=== PATIENT | female | born 1940 | race Caucasian/White ===

== ENCOUNTER → 2017-02-19 | Outpatient (CLI) | payer MEDICARE, OTHER ==
--- NOTE | 2017-02-20 16:20 | WOMENS IMAGING REPORT ---
EXAM DESCRIPTION: 3D SCREENING MAMMO BILAT COMPLETED DATE/TIME: 02/19/2017 1:35 pm REASON FOR STUDY: ROUTINE SCREENING; Z12.31 COMPARISON: Multiple since 2008 TECHNIQUE: Standard craniocaudal and mediolateral oblique views of each breast recorded using digita l acquisition and breast tomosynthesis. LIMITATIONS: None. FINDINGS: Findings present which are benign by mammographic criteria. No suspicious masses, calcifi cations or architectural distortion. Pertinent benign findings: Benign bilateral breast parenchymal arterial vascular calcifications Read with the assistance of CAD. .[facility] - R2 Cenova Version 1.3 .[facility] - R2 Cenova Version 1.3 .[facility] - R2 Cenova Version 2.4 .[facility] [place] - R2 Cenova Version 2.4 .[facility] - R2 Optical Scientist Version 9.2 Benign mammographic findings may include one or more of the following: Smooth masses, popcorn/rim/co arse calcifications, asymmetries, post-procedure changes, and lesions with long-standing stability. IMPRESSION: BENIGN MAMMOGRAPHIC FINDINGS. BIRADS 2 BREAST DENSITY: b. There are scattered areas of fibroglandular density. BIRAD: 2 BENIGN FINDING(S) RECOMMENDATION: RECOMMENDATION: ROUTINE SCREENING COMMENT: The patient has been notified of the results by letter per SA requirements. Additional no tification policies are in place for contacting patient with suspicious or incomplete findings. Quality ID #[id number]: The [employer] recommends an annual screening mammogram for women aged 40 years or over. This facility utilizes a reminder system to ensure that all patients receive reminder letters, and/or direct phone calls for appointments. This includes reminders for routine scr eening mammograms, diagnostic mammograms, or other Breast Imaging Interventions when appropriate. Th is patient will be placed in the appropriate reminder system. The [employer] (ACR) has developed recommendations for screening MRI of the breast s in certain patient populations, to be used in conjunction with mammography. Breast MRI surveillanc e may be appropriate for women with more than 20% lifetime risk of developing breast cancer as deter mined by genetic testing, significant family history of the disease, or history of mantle radiation f or Hodgkins Disease. ACR Practice Guidelines 2008. DBT Technology DBT is a type of tomographic mammography. With conventional mammography, overlapping breast tissue ma y make lesions difficult to detect, even with good compression. DBT uses an x-ray tube that rotates a round the breast, taking images at different angles. These images are then combined to create thin sl ices of the breast that the radiologist can view as a 3D reconstruction. The Hologic unit can perform full-field digital mammograms (2D imaging); or DBT (3D imaging); or both, in a combination mode that quickly performs both the mammogram and the tomosynthesis scan while the breast is still compressed. PQRS 6045F: Fluoroscopic imaging is not utilized for breast tomosynthesis. TECHNICAL DOCUMENTATION: FINDING NUMBER: (1) ASSESSMENT: (1) JOB ID: [id number] [employer]- All Rights Reserved
== END ==
LOC: WI 13:12
PROVIDERS: ATTEND Internal Medicine Medical Oncology
DX: Z12.31 Encounter for screening mammogram for malignant neoplasm of breast (principal)
CPT/HCPCS: 77063; G0202; 77067

== ENCOUNTER → 2017-09-27 | Outpatient (CLI) | payer MEDICARE, OTHER ==
[2017-09-27 10:02] VITALS: BP 158/70
[2017-09-27 11:07] LABS: HEMATOCRIT 38.7 % (36.0-47.0); MEAN CORPUSCULAR HEMOGLOBIN 30.2 pg (27.0-33.4); MEAN CORPUSCULAR HGB CONC 33.5 g/dL (32.0-36.0); MEAN CORPUSCULAR VOLUME 90 fl (80-97); PLATELET COUNT 133 10^3/uL (150-450); RED CELL DISTRIBUTION WIDTH 15.4 % (11.5-14.0); WHITE BLOOD COUNT 4.2 10^3/uL (4.0-10.5)
[2017-09-27 11:16] LABS: INTERNATIONAL RATION (INR) 0.91; PROTHROMBIN TIME 12.7 SEC (11.4-15.4)
[2017-09-27 11:17] LABS: PARTIAL THROMBOPLASTIN TIME 29.2 SEC (23.5-35.8)
--- NOTE | 2017-09-27 23:03 | EKG REPORT ---
SEVERITY:- ABNORMAL ECG - SINUS RHYTHM LVH WITH SECONDARY REPOLARIZATION ABNORMALITY : Confirmed by: Joe Jacob 27-Sep-2017 23:03:02
== END ==
LOC: OD 10:40 → EDSTATUS 10-16 08:00
PROVIDERS: ATTEND Plastic Surgery
DX: Z01.810 Encounter for preprocedural cardiovascular examination (principal); Z01.812 Encounter for preprocedural laboratory examination; Z01.818 Encounter for other preprocedural examination; Z79.01 Long term (current) use of anticoagulants; Z79.899 Other long term (current) drug therapy
CPT/HCPCS: 36415; 85027; 85610; 85730; 93005; 93010

== ENCOUNTER 2017-10-14 09:01 | Emergency (ER) | payer MEDICARE, OTHER ==
[2017-10-14 09:09] VITALS: BP 174/75
[2017-10-14] MEDS ORDERED: OXYCODONE-ACETAMINOPHEN 5-325 MG TABLET PO ONE (09:50)
--- NOTE | 2017-10-14 09:50 | ER Document Report ---
ED General - General Mode of Arrival: Ambulatory Information source: Patient TRAVEL OUTSIDE OF THE [place] IN LAST 30 DAYS: No <CHERY FOURNIER - Last Filed: 10/14/17 11:15> <MINDA DAO - Last Filed: 10/14/17 12:35> - General Chief Complaint: Leg Pain Stated Complaint: RIGHT ANKLE/ KNEE PAIN Time Seen by Provider: 10/14/17 09:31 Notes: Patient is a 77 year old female with arthritis and a history of gout presents to the emergency department complaining of multiple symptoms including right neck pain, right knee pain, left wrist pain and bilateral lower extremity swelling. Patient states 2-3 days ago she began to have right sided neck pain then left wrist pain then right knee pain. She further states she has chronic swelling in her lower extremities but it has worsened the last few days. She states her pain is similar to her previous episodes of gout. She states her pain is exacerbated with movement and walking. She reports taking colchicine although she has recently discontinued it due to having an upcoming surgery. Patient denies trouble breathing, chest pain, recent falls or injury. (CHERY FOURNIER) - Related Data Allergies/Adverse Reactions: No Known Allergies Allergy (Verified 10/14/17 09:03) Past Medical History - General Information source: Patient - Social History Smoking Status: Never Smoker Chew tobacco use (# tins/day): No Frequency of alcohol use: None Drug Abuse: None Family History: Reviewed & Not Pertinent Patient has suicidal ideation: No Patient has homicidal ideation: No Musculoskeletal Medical History: Reports Hx Arthritis <CHERY FOURNIER - Last Filed: 10/14/17 11:15> Review of Systems - Review of Systems Constitutional: No symptoms reported EENT: No symptoms reported Cardiovascular: No symptoms reported Respiratory: No symptoms reported Gastrointestinal: No symptoms reported Genitourinary: No symptoms reported Female Genitourinary: No symptoms reported Musculoskeletal: See HPI Skin: See HPI Hematologic/Lymphatic: No symptoms reported Neurological/Psychological: No symptoms reported -: Yes All other systems reviewed and negative <CHERY FOURNIER - Last Filed: 10/14/17 11:15> Physical Exam <CHERY FOURNIER - Last Filed: 10/14/17 11:15> <MINDA DAO - Last Filed: 10/14/17 12:35> - Vital signs Vitals: Temp Pulse Resp BP Pulse Ox 98.9 F 90 16 174/75 H 98 10/14/17 09:07 10/14/17 09:07 10/14/17 09:07 10/14/17 09:07 10/14/17 09:07 - Notes Notes: GENERAL: Alert, interacts well. No acute distress. HEAD: Normocephalic, atraumatic. EYES: Pupils equal, round, and reactive to light. Extraocular movements intact. ENT: Oral mucosa moist, tongue midline. NECK: Full range of motion. Supple. Trachea midline. LUNGS: No respiratory distress. EXTREMITIES: Moves all 4 extremities spontaneously. 2+ pitting edema in the BLE to the level of the knees. BLE warm to touch,R>L. Right knee hot to touch, left wrist hot to touch. Tender to palpation to the lateral aspect of right lower extremity. Pain with extension and flexion of right knee. Negative anterior and posterior drawer test of right knee. No effusion or no crepitus of right knee. Right knee PROM to approximately 80 with extension. NEUROLOGICAL: Alert and oriented x3. Normal speech. PSYCH: Normal affect, normal mood. SKIN: Warm, dry, normal turgor. (CHERY FOURNIER) Course <CHERY FOURNIER - Last Filed: 10/14/17 11:15> <MINDA DAO - Last Filed: 10/14/17 12:35> - Re-evaluation Re-evalutation: 10/14/17 09:55 I did a thorough discussion with this patient regarding desired workup and treatment at this time. Given the increased pain and swelling in her right leg I did discuss doing an ultrasound of the right leg to look for DVT. Patient states she does not want an ultrasound at this time as they have looked for a blood clot twice in the past and not found one. Discussed with the patient that since the swelling is worse those 2 prior ultrasounds cannot completely rule out a DVT at this time. Patient is aware of this and agrees to return should the swelling worsen. I also discussed that the swelling in her legs is not likely explained by gout. Patient also agrees to return should she develop any chest pain or shortness of breath. At present patient only wishes to treat what appears to be a gouty flare causing the pain in her left wrist and her right knee. There is no sign of septic joint at this time as I can range her knee through most of her range of motion up to 80 passive range of motion and there is no effusion of the knee. (MINDA DAO) - Vital Signs Vital signs: Temp Pulse Resp BP Pulse Ox 98.9 F 90 16 174/75 H 98 10/14/17 09:07 10/14/17 09:07 10/14/17 09:07 10/14/17 09:07 10/14/17 09:07 Procedures - Immobilization left wrist Pre-Proc Neuro Vasc Exam: Normal Immobilizer type: Cock-up Performed by: PCT Post-Proc Neuro Vasc Exam: Normal, Unchanged from pre-exam Alignment checked and good: Yes Right Knee Pre-Proc Neuro Vasc Exam: Normal Immobilizer type: Dk wrap Performed by: PCT Post-Proc Neuro Vasc Exam: Normal, Unchanged from pre-exam Alignment checked and good: Yes <MINDA DAO - Last Filed: 10/14/17 12:35> Discharge <CHERY FOURNIER - Last Filed: 10/14/17 11:15> <MINDA DAO - Last Filed: 10/14/17 12:35> - Discharge Clinical Impression: Right wrist pain Right knee pain Qualifiers: Chronicity: acute Qualified Code(s): M25.561 - Pain in right knee Gout flare Qualifiers: Gout site: multiple sites Gout etiology: unspecified cause Qualified Code(s): M10.9 - Gout, unspecified Condition: Stable Disposition: HOME, SELF-CARE Additional Instructions: You appear to be having a flare of your gout. This is likely because you recently stopped taking your colchicine in preparation for upcoming surgery. Please restart your colchicine. Your first dose may be 2 tablets instead of 1. Please keep your leg elevated and rest your wrist. If your swelling worsens, you develop shortness of breath, you develop chest pain, you develop fever or your pain is not controlled with colchicine and the Percocet please return to the emergency department. Prescriptions: Oxycodone HCl/Acetaminophen [Percocet 5-325 mg Tablet] 1 - 2 tab PO Q4H PRN #15 tablet PRN Reason: Referrals: PRABHU OLIVO MD [ACTIVE STAFF] - Follow up as needed Scribe Attestation: 10/14/17 12:35 I personally performed the services described in the documentation, reviewed and edited the documentation which was dictated to the scribe in my presence, and it accurately records my words and actions. (MINDA DAO) Scribe Documentation - Scribe Written by Scribe:: Meghan Rivera, 10/14/2017 10:39 acting as scribe for :: Garth <CHERY FOURNIER - Last Filed: 10/14/17 11:15>
== END 2017-10-14 10:00 | disposition home or self-care (01) ==
LOC: ER 09:01
DX: M10.9 Gout, unspecified (principal); M54.2 Cervicalgia; R60.0 Localized edema
CPT/HCPCS: 99283; L3908; A9270

== ENCOUNTER 2018-01-19 18:32 | Inpatient (IN) | payer MEDICARE, OTHER ==
--- NOTE | 2018-01-19 18:43 | ER Document Report ---
ED General - General Stated Complaint: FALL/HIP PAIN Time Seen by Provider: 01/19/18 18:42 Notes: Patient is a 77-year-old female that presents to the emergency department for chief complaint of left hip pain after fall. Patient reports that just prior to ED arrival, the patient had tripped over her cane and fell onto her left side , has not been able to stand since then. EMS was called and she was brought to the emergency department. She currently states she has no pain, but did at the time that she fell. She states as long as she is lying still, not moving her left leg, she does not having any pain. She rates the pain when she does move her leg as a 4 out of 10, describes as an aching and throbbing sensation. Denies any numbness, tingling or weakness. Denies any pain anywhere else. She did not hit her head from the fall. Denies any headache, lightheadedness, chest pain, shortness of breath, nausea, vomiting. Past Medical History: Diabetes mellitus, hypertension, hyperlipidemia Past Surgical History: Cholecystectomy Social History: Denies tobacco, alcohol or illicit drug use. Family History: Reviewed and noncontributory for presenting illness Allergies: Reviewed, see documented allergy list. REVIEW OF SYSTEMS: Other than noted above, the 12 point review of systems was reviewed with the patient and were negative, all pertinent findings are included in the HPI. PHYSICAL EXAMINATION: Vital signs reviewed, nursing noted reviewed. GENERAL: Elderly female, no acute distress HEAD: Atraumatic, normocephalic. EYES: Eyes appear normal, extraocular movements intact, sclera anicteric, conjunctiva are normal. ENT: nares patent, oropharynx clear without exudates. Moist mucous membranes. NECK: Normal range of motion, supple without lymphadenopathy LUNGS: Breath sounds clear to auscultation bilaterally and equal. No wheezes rales or rhonchi. HEART: Regular rate and rhythm without murmurs ABDOMEN: Soft, nontender, normoactive bowel sounds. No rebound, guarding, or rigidity. No masses appreciated. EXTREMITIES: The left lower extremity is shortened compared to the right, she does have pain with logrolling, and with passive hip flexion, patient is unable to flex her hip on her own. There is also tenderness with palpation over the greater trochanter of the left hip. The rest the patient's extremity exam is grossly unremarkable. She is neurovascularly intact distally in all extremities. NEUROLOGICAL: No focal neurological deficits. Moves all extremities spontaneously Motor and sensory grossly intact on exam. PSYCH: Normal mood, normal affect. SKIN: Warm, Dry, normal turgor, no rashes or lesions noted on exposed skin TRAVEL OUTSIDE OF THE [place] IN LAST 30 DAYS: No - Related Data Allergies/Adverse Reactions: Mdgiukx-Vby-Xcr Reductase Inhibitor Adverse Reaction (Verified 01/19/18 22:02) Past Medical History - Social History Smoking Status: Never Smoker Family History: Reviewed & Not Pertinent Renal/ Medical History: Denies: Hx Peritoneal Dialysis Musculoskeletal Medical History: Reports Hx Arthritis Physical Exam - Vital signs Vitals: Temp Pulse Resp BP Pulse Ox 97.6 F 56 L 18 158/59 H 95 01/19/18 18:37 01/19/18 18:37 01/19/18 18:37 01/19/18 18:37 01/19/18 18:37 Course - Re-evaluation Re-evalutation: Patient seen and examined vital signs reviewed. Laboratory data and imaging were ordered as appropriate for the patient's presenting symptoms and complaint, with consideration of any critical or life threatening conditions that may be associated with their obtained history and exam as noted above. Patient was treated with IV fluid, patient declined any need for pain medication despite having a intertrochanteric fracture. Results were reviewed when available and demonstrated left intertrochanteric fracture, blood work was reviewed, patient appeared mildly dehydrated, therefore she was given fluids as noted above The patient was re-evaluated and was stable, no complaints Evaluation was most consistent with left intertrochanteric fracture, after fall , case discussed with Dr. Duque with orthopedics, who will follow up on the patient is a consult Results were discussed with the patient at this point after careful consideration I feel that that patient should be admitted to the hospital. This was discussed with the patient that it is in the best interest for their care to be admitted for further evaluation and management. Patient agreed with this plan of care. A call was placed to the admitted physician, Dr. Oconnell who graciously accepted the patient onto their service. *Note is created using voice recognition software and may contain spelling, syntax or grammatical errors. Laboratory 01/19/18 01/19/18 19:00 19:00 WBC 4.6 RBC 3.97 Hgb 10.1 L Hct 32.1 L MCV 81 MCH 25.4 L MCHC 31.4 L RDW 23.3 H Plt Count 171 Seg Neutrophils % 73.6 Lymphocytes % 15.9 Monocytes % 7.0 Eosinophils % 3.1 Basophils % 0.4 Absolute Neutrophils 3.4 Absolute Lymphocytes 0.7 Absolute Monocytes 0.3 Absolute Eosinophils 0.1 Absolute Basophils 0.0 Sodium 142.2 Potassium 3.9 Chloride 102 Carbon Dioxide 30 Anion Gap 10 BUN 29 H Creatinine 1.22 Est GFR ( Amer) 52 L Est GFR (Non-Af Amer) 43 L Glucose 161 H Calcium 10.4 H Total Bilirubin 1.0 Direct Bilirubin 0.7 H Neonat Total Bilirubin Not Reportable Neonat Direct Bilirubin Not Reportable Neonat Indirect Bili Not Reportable AST 114 H ALT 42 Alkaline Phosphatase 337 H Total Protein 6.6 Albumin 3.5 Hip X-Ray 01/19/18 18:41 IMPRESSION: Comminuted intertrochanteric fracture of the left hip with subtrochanteric extension. - Vital Signs Vital signs: Temp Pulse Resp BP Pulse Ox 97.6 F 56 L 18 158/59 H 95 01/19/18 18:37 01/19/18 18:37 01/19/18 18:37 01/19/18 18:37 01/19/18 18:37 - Laboratory Result Diagrams: 01/19/18 19:00 01/19/18 19:00 Laboratory results interpreted by me: 01/19/18 01/19/18 19:00 19:00 Hgb 10.1 L Hct 32.1 L MCH 25.4 L MCHC 31.4 L RDW 23.3 H BUN 29 H Est GFR ( Amer) 52 L Est GFR (Non-Af Amer) 43 L Glucose 161 H Calcium 10.4 H Direct Bilirubin 0.7 H AST 114 H Alkaline Phosphatase 337 H - EKG Interpretation by Me Additional EKG results interpreted by me: EKG demonstrates sinus bradycardia with a ventricular rate of 55 bpm, left axis deviation, QTC 475 ms, no evidence of acute ischemia, this is compared with prior EKG from 09/27/2017, without significant change. Discharge - Discharge Clinical Impression: Prerenal azotemia Intertrochanteric fracture of left hip Qualifiers: Encounter type: initial encounter Fracture type: closed Fracture alignment: displaced Qualified Code(s): S72.142A - Displaced intertrochanteric fracture of left femur, initial encounter for closed fracture Fall Qualifiers: Encounter type: initial encounter Qualified Code(s): W19.XXXA - Unspecified fall, initial encounter Anemia Qualifiers: Anemia type: unspecified type Qualified Code(s): D64.9 - Anemia, unspecified Condition: Stable Disposition: ADMITTED INPATIENT Admitting Provider: Hospitalist - Dr. Oconnell Unit Admitted: Telemetry
[2018-01-19 19:23] LABS: ABSOLUTE EOSINOPHILS # (AUTO) 0.1 10^3/uL (0.0-0.6); ABSOLUTE LYMPHOCYTES (AUTO) 0.7 10^3/uL (0.5-4.7); ABSOLUTE MONOCYTES (AUTO) 0.3 10^3/uL (0.1-1.4); ABSOLUTE NEUT (AUTO) 3.4 10^3/uL (1.7-8.2); BASOPHILS % (AUTO) 0.4 % (0-2); EOSINOPHILS % (AUTO) 3.1 % (0-6); HEMATOCRIT 32.1 % (36.0-47.0); HEMOGLOBIN 10.1 g/dL (12.0-15.5); LYMPHOCYTES % (AUTO) 15.9 % (13-45); MEAN CORPUSCULAR HEMOGLOBIN 25.4 pg (27.0-33.4); MEAN CORPUSCULAR HGB CONC 31.4 g/dL (32.0-36.0); MEAN CORPUSCULAR VOLUME 81 fl (80-97); PLATELET COUNT 171 10^3/uL (150-450); RED BLOOD COUNT 3.97 10^6/uL (3.72-5.28); RED CELL DISTRIBUTION WIDTH 23.3 % (11.5-14.0); SEGMENTED NEUTROPHILS % (AUTO) 73.6 % (42-78); TOTAL CELLS COUNTED % (AUTO) 100 %; WHITE BLOOD COUNT 4.6 10^3/uL (4.0-10.5)
[2018-01-19 20:02] LABS: ALANINE AMINOTRANSFERASE 42 U/L (9-52); ALBUMIN 3.5 g/dL (3.5-5.0); ALKALINE PHOSPHATASE 337 U/L (38-126); ANION GAP 10 (5-19); ASPARTATE AMINO TRANSFERASE 114 U/L (14-36); BLOOD UREA NITROGEN 29 mg/dL (7-20); CALCIUM 10.4 mg/dL (8.4-10.2); CARBON DIOXIDE 30 mmol/L (22-30); CHLORIDE 102 mmol/L (98-107); GLUCOSE 161 mg/dL (75-110); POTASSIUM 3.9 mmol/L (3.6-5.0); SODIUM 142.2 mmol/L (137-145)
[2018-01-19 20:03] LABS: BILIRUBIN,DIRECT 0.7 mg/dL (0.0-0.4); TOTAL PROTEIN 6.6 g/dL (6.3-8.2)
[2018-01-19] MEDS ORDERED: NORMAL SALINE 500 ML IV ONE (20:06)
--- NOTE | 2018-01-19 20:07 | RADIOLOGY REPORT (SQ) ---
EXAM DESCRIPTION: HIP LEFT AP/LATERAL COMPLETED DATE/TIME: 01/19/2018 7:16 pm REASON FOR STUDY: fall COMPARISON: None. NUMBER OF VIEWS: Two views. TECHNIQUE: AP pelvis and additional cross-table lateral view of the left hip. LIMITATIONS: None. FINDINGS: MINERALIZATION: Osteopenia. LEFT HIP: Comminuted intertrochanteric fracture of the left hip with subtrochanteric extension and co xa vera. Lesser tuberosity is slightly displaced medially. Left femoral head is well seated within its acetabulum. RIGHT HIP: No fracture or dislocation. No worrisome bone lesions. PUBIS AND ISCHIUM: Pubic symphysis is cured by overlying bowel contents. Otherwise, no acute fractur e. PELVIS: No fracture. SACRUM: No fracture or dislocation. No worrisome bone lesions. LOWER LUMBAR SPINE: No sinister bone lesions. SOFT TISSUES: No findings. OTHER: No other significant finding. IMPRESSION: Comminuted intertrochanteric fracture of the left hip with subtrochanteric extension. TECHNICAL DOCUMENTATION: JOB ID: [id number] [employer]- All Rights Reserved Reading location - IP/workstation name: [email or web address]
[2018-01-19] MEDS ORDERED: ONDANSETRON HCL INJ/PF 4 MG/2 ML SDV IV PRN (20:16)
[2018-01-19] MEDS ORDERED: IPRATROPIUM/ALBUTEROL 0.5-2.5 MG/3 ML AMPUL NEB PRN (20:16)
[2018-01-19] MEDS ORDERED: MAG HYDROX/AL HYDROX/SIMETH SUSP 30 ML UDCUP PO PRN (20:16)
[2018-01-19] MEDS ORDERED: ACETAMINOPHEN 325 MG TABLET PO PRN (20:16)
[2018-01-19] MEDS ORDERED: DEXTROSE 50%-WATER 25 GM/50 ML DISP.SYRIN IV PRN ×2 (20:16)
[2018-01-19] MEDS ORDERED: GLUCAGON,HUMAN RECOMB 1 MG INJ IM PRN (20:16)
[2018-01-19] MEDS ORDERED: DEXTROSE 40% GEL 15 GM TUBE PO PRN ×2 (20:16)
[2018-01-19] MEDS ORDERED: INSULIN LISPRO 100 UNIT/ML 3 ML VIAL SUBCUT PRN (20:16)
[2018-01-19] MEDS: MORPHINE SULFATE 10 MG/ML INJ IV PRN (21:59)
[2018-01-19] MEDS: HEPARIN SOD (PORCINE) 5,000 UNIT/ML 1 ML SYRINGE SUBCUT SCH (22:35)
[2018-01-20] MEDS: MORPHINE SULFATE 10 MG/ML INJ IV PRN ×5 (01:35→22:26)
[2018-01-20 05:55] LABS: ABSOLUTE LYMPHOCYTES (AUTO) 0.7 10^3/uL (0.5-4.7); ABSOLUTE MONOCYTES (AUTO) 0.3 10^3/uL (0.1-1.4); ABSOLUTE NEUT (AUTO) 3.3 10^3/uL (1.7-8.2); BASOPHILS % (AUTO) 0.7 % (0-2); EOSINOPHILS % (AUTO) 0.2 % (0-6); HEMOGLOBIN 9.4 g/dL (12.0-15.5); MEAN CORPUSCULAR HEMOGLOBIN 25.4 pg (27.0-33.4); MEAN CORPUSCULAR HGB CONC 31.3 g/dL (32.0-36.0); MEAN CORPUSCULAR VOLUME 81 fl (80-97); PLATELET COUNT 142 10^3/uL (150-450); RED BLOOD COUNT 3.69 10^6/uL (3.72-5.28); RED CELL DISTRIBUTION WIDTH 23.5 % (11.5-14.0); SEGMENTED NEUTROPHILS % (AUTO) 77.1 % (42-78); TOTAL CELLS COUNTED % (AUTO) 100 %; WHITE BLOOD COUNT 4.3 10^3/uL (4.0-10.5)
[2018-01-20] MEDS: HEPARIN SOD (PORCINE) 5,000 UNIT/ML 1 ML SYRINGE SUBCUT SCH (06:03)
--- NOTE | 2018-01-20 06:40 | PDOC H&P ---
History of Present Illness Admission Date/PCP: 01/19/18 20:21 MARCO DAY Patient complains of: Left hip pain History of Present Illness: SHARYN PETERS is a 77 year old female with a past medical history of paroxysmal atrial fibrillation, diabetes, hypertension, osteoarthritis and dyslipidemia. Presents after tripping over her cane landing on her left side resulting in left sided hip pain and inability to bear weight. Patient denies striking her head or other injury, chest pain, shortness of breath, nausea or vomiting. In the emergency room she is found to have a left-sided hip fracture and referred to the hospitalist for admission. Patient denies recent recent falls, change in medications and otherwise feels well. Patient is minimally ambulatory at baseline walking no further than 30-40 feet limited by arthritic pain. Past Medical History Cardiac Medical History: Reports: Atrial Fibrillation Musculoskeltal Medical History: Reports: Arthritis Past Surgical History Past Surgical History: Reports: Cholecystectomy Social History Information Source: Patient, Emergency Med Personnel Lives with: Spouse/Significant other Smoking Status: Never Smoker Frequency of Alcohol Use: None Drugs: None - Advance Directive Resuscitation Status: Full Code Family History Family History: Hypertension Parental Family History Reviewed: Yes Children Family History Reviewed: Yes Sibling(s) Family History Reviewed.: Yes Medication/Allergy Home Medications: Alendronate Sodium [Fosamax 70 mg Tablet] 70 mg PO .WEEKLY 09/27/17 Blackcherry 2 tab PO DAILY 09/27/17 Chlorthalidone [Chlorthalidone 25 mg Tablet] 1 tab PO DAILY 09/27/17 Cholecalciferol (Vitamin D3) [Vitamin D3] 1,000 unit PO DAILY 09/27/17 Colchicine [Colcrys 0.6 mg Tablet] 1 tab PO DAILY 09/27/17 Cyclosporine [Restasis] 1 each OP BID 09/27/17 Diclofenac Sodium [Voltaren] 100 gm TP BID 09/27/17 Diltiazem HCl [Cardizem LA] 420 mg PO QAM 09/27/17 Febuxostat [Uloric 80 mg Tablet] 80 mg PO QPM 09/27/17 Glipizide [Glipizide Xl] 10 mg PO BID 09/27/17 Hydrocodone/Acetaminophen [Hydrocodon-Acetaminophen 5-325] 1 each PO Q6 PRN Metoprolol Succinate 50 mg PO QAM 09/27/17 Multivitamin [Multivitamins] 1 each PO DAILY 09/27/17 Niacin 500 mg PO QPM 09/27/17 Potassium Gluconate 20 meq PO TID 09/27/17 Red Grape Seed 2 tab PO DAILY 09/27/17 Sitagliptin Phosphate [Januvia 50 mg Tablet] 100 mg PO DAILY 09/27/17 Tosemide 100 mg PO QAM 09/27/17 Vitamin B Complex [B Complex] 1 each PO DAILY 09/27/17 Oxycodone HCl/Acetaminophen [Percocet 5-325 mg Tablet] 1 - 2 tab PO Q4H PRN #15 tablet 10/14/17 Alprazolam [Xanax 0.5 mg Tablet] 0.5 mg PO DAILY 01/19/18 Colchicine [Colchicine 0.6 mg Tablet] 0.6 mg PO DAILY 01/19/18 Allergies/Adverse Reactions: Yiytizh-Oyp-Xui Reductase Inhibitor Adverse Reaction (Verified 01/19/18 22:02) Review of Systems Constitutional: ABSENT: chills, fever(s), headache(s), weight gain, weight loss Eyes: ABSENT: visual disturbances Ears: ABSENT: hearing changes Cardiovascular: ABSENT: chest pain, dyspnea on exertion, edema, orthropnea, palpitations Respiratory: ABSENT: cough, hemoptysis Gastrointestinal: ABSENT: abdominal pain, constipation, diarrhea, hematemesis, hematochezia, nausea, vomiting Genitourinary: ABSENT: dysuria, hematuria Musculoskeletal: ABSENT: joint swelling Integumentary: ABSENT: rash, wounds Neurological: ABSENT: abnormal gait, abnormal speech, confusion, dizziness, focal weakness, syncope Psychiatric: ABSENT: anxiety, depression, homidical ideation, suicidal ideation Endocrine: ABSENT: cold intolerance, heat intolerance, polydipsia, polyuria Hematologic/Lymphatic: ABSENT: easy bleeding, easy bruising Physical Exam Vital Signs: Temp Pulse Resp BP Pulse Ox 97.9 F 63 18 154/63 H 96 01/20/18 05:29 01/20/18 05:29 01/20/18 05:29 01/20/18 05:29 01/20/18 05:29 Intake & Output 01/18/18 01/19/18 01/20/18 11:59 11:59 11:59 Intake Total 500 Balance 500 Weight 95.3 kg General appearance: PRESENT: cooperative, mild distress, obese, well-developed, well-nourished Head exam: PRESENT: atraumatic, normocephalic Eye exam: PRESENT: conjunctiva pink, EOMI, PERRLA. ABSENT: scleral icterus Ear exam: PRESENT: normal external ear exam Mouth exam: PRESENT: moist, tongue midline Neck exam: ABSENT: carotid bruit, JVD, lymphadenopathy, thyromegaly Respiratory exam: PRESENT: clear to auscultation minerva. ABSENT: rales, rhonchi, wheezes Cardiovascular exam: PRESENT: RRR. ABSENT: diastolic murmur, rubs, systolic murmur Pulses: PRESENT: normal dorsalis pedis pul Vascular exam: PRESENT: normal capillary refill GI/Abdominal exam: PRESENT: normal bowel sounds, soft. ABSENT: distended, guarding, mass, organolmegaly, rebound, tenderness Rectal exam: PRESENT: deferred Extremities exam: PRESENT: full ROM, tenderness, +1 edema - Mild chronic venous stasis changes, other - Left lower extremity shortened and externally rotated. ABSENT: calf tenderness, clubbing, pedal edema Neurological exam: PRESENT: alert, awake, oriented to person, oriented to place , oriented to time, oriented to situation, CN II-XII grossly intact. ABSENT: motor sensory deficit Psychiatric exam: PRESENT: appropriate affect, normal mood. ABSENT: homicidal ideation, suicidal ideation Skin exam: PRESENT: dry, intact, warm. ABSENT: cyanosis, rash Results Laboratory Results: 01/20/18 05:09 01/20/18 05:09 WBC 4.3 RBC 3.69 L Hgb 9.4 L Hct 30.0 L MCV 81 MCH 25.4 L MCHC 31.3 L RDW 23.5 H Plt Count 142 L Seg Neutrophils % 77.1 Lymphocytes % 15.0 Monocytes % 7.0 Eosinophils % 0.2 Basophils % 0.7 Absolute Neutrophils 3.3 Absolute Lymphocytes 0.7 Absolute Monocytes 0.3 Absolute Eosinophils 0.0 Absolute Basophils 0.0 Impressions: Hip X-Ray 01/19/18 18:41 IMPRESSION: Comminuted intertrochanteric fracture of the left hip with subtrochanteric extension. Assessment & Plan - Diagnosis (1) Intertrochanteric fracture of left hip Qualifiers: Encounter type: initial encounter Fracture type: closed Fracture alignment: displaced Qualified Code(s): S72.142A - Displaced intertrochanteric fracture of left femur, initial encounter for closed fracture Is this a current diagnosis for this admission?: Yes Plan: No immediately reversible risk factors preventing orthopedic surgery. Symptomatic management, orthopedic surgery consulted (2) Paroxysmal atrial fibrillation Is this a current diagnosis for this admission?: Yes Plan: Continue outpatient regiment of diltiazem and Coreg (3) Anemia Qualifiers: Anemia type: unspecified type Qualified Code(s): D64.9 - Anemia, unspecified Is this a current diagnosis for this admission?: Yes Plan: Microcytic, likely iron deficient, follow-up labs (4) Prerenal azotemia Is this a current diagnosis for this admission?: Yes Plan: Mild iatrogenic dehydration, Lasix held, gentle IV fluid resuscitation, follow- up chemistry - Time Time Spent: 30 to 50 Minutes - Inpatient Certification Medical Necessity: Need Close Monitoring Due to Risk of Patient Decompensation
[2018-01-20] MEDS ORDERED: NORMAL SALINE 1000 ML 1,000 ML IV PRN (06:41)
[2018-01-20] MEDS ORDERED: CEFAZOLIN 2 GM/D5W RTU 2 GM/50 ML RTUPB IV PRN (06:42)
[2018-01-20] MEDS ORDERED: TRANEXAMIC ACID 1,000 MG in DEXTROSE 5%-WATER 50 ML IV PRN (06:43)
--- NOTE | 2018-01-20 06:55 | PDOC CONSULTATION ---
Consultation Consult Date: 01/20/18 Consult reason:: Left hip fracture History of Present Illness Admission Date/PCP: 01/19/18 20:21 MARCO DAY History of Present Illness: SHARYN PETERS is a 77 year old female The patient is a 77-year-old white female household ambulator who tripped and fell and sustained a left hip injury. She was evaluated in the emergency room where a left intertrochanteric femur fracture was identified. She is admitted to the hospital service and orthopedics is consulted for fracture management. Past Medical History Cardiac Medical History: Reports: Atrial Fibrillation Musculoskeltal Medical History: Reports: Arthritis Past Surgical History Past Surgical History: Reports: Cholecystectomy Social History Information Source: Patient, [facility] Records Lives with: Spouse/Significant other Smoking Status: Never Smoker Frequency of Alcohol Use: None Drugs: None - Advance Directive Resuscitation Status: Full Code Family History Family History: Reviewed & Not Pertinent, Hypertension Parental Family History Reviewed: No Children Family History Reviewed: No Sibling(s) Family History Reviewed.: No Medication/Allergy Home Medications: Alendronate Sodium [Fosamax 70 mg Tablet] 70 mg PO .WEEKLY 09/27/17 Blackcherry 2 tab PO DAILY 09/27/17 Chlorthalidone [Chlorthalidone 25 mg Tablet] 1 tab PO DAILY 09/27/17 Cholecalciferol (Vitamin D3) [Vitamin D3] 1,000 unit PO DAILY 09/27/17 Colchicine [Colcrys 0.6 mg Tablet] 1 tab PO DAILY 09/27/17 Cyclosporine [Restasis] 1 each OP BID 09/27/17 Diclofenac Sodium [Voltaren] 100 gm TP BID 09/27/17 Diltiazem HCl [Cardizem LA] 420 mg PO QAM 09/27/17 Febuxostat [Uloric 80 mg Tablet] 80 mg PO QPM 09/27/17 Glipizide [Glipizide Xl] 10 mg PO BID 09/27/17 Hydrocodone/Acetaminophen [Hydrocodon-Acetaminophen 5-325] 1 each PO Q6 PRN Metoprolol Succinate 50 mg PO QAM 09/27/17 Multivitamin [Multivitamins] 1 each PO DAILY 09/27/17 Niacin 500 mg PO QPM 09/27/17 Potassium Gluconate 20 meq PO TID 09/27/17 Red Grape Seed 2 tab PO DAILY 09/27/17 Sitagliptin Phosphate [Januvia 50 mg Tablet] 100 mg PO DAILY 09/27/17 Tosemide 100 mg PO QAM 09/27/17 Vitamin B Complex [B Complex] 1 each PO DAILY 09/27/17 Oxycodone HCl/Acetaminophen [Percocet 5-325 mg Tablet] 1 - 2 tab PO Q4H PRN #15 tablet 10/14/17 Alprazolam [Xanax 0.5 mg Tablet] 0.5 mg PO DAILY 01/19/18 Colchicine [Colchicine 0.6 mg Tablet] 0.6 mg PO DAILY 01/19/18 Allergies/Adverse Reactions: [id number]-[id number]-Uqd Reductase Inhibitor Adverse Reaction (Verified 01/19/18 22:02) Review of Systems All systems: as per PMH Physical Exam Vital Signs: Temp Pulse Resp BP Pulse Ox 36.6 C 63 18 154/63 H 96 01/20/18 05:29 01/20/18 05:29 01/20/18 05:29 01/20/18 05:29 01/20/18 05:29 Intake & Output 01/18/18 01/19/18 01/20/18 06:59 06:59 06:59 Intake Total 500 Output Total 1350 Balance -850 Weight 95.3 kg Physical Exam: Overweight if not obese middle-aged white female lying in hospital bed. Accompanied by her in the chair next to her. She is alert oriented conversant and appropriate. General appearance: PRESENT: no acute distress, obese Head exam: PRESENT: normocephalic Respiratory exam: PRESENT: unlabored Cardiovascular exam: PRESENT: RRR Pulses: PRESENT: +1 pedal pulses bilateral Vascular exam: PRESENT: normal capillary refill GI/Abdominal exam: PRESENT: soft Rectal exam: PRESENT: deferred Extremities exam: PRESENT: other - Left lower extremity shortened and externally rotated. Distal neurovascular examination is intact. Neurological exam: PRESENT: alert, awake, oriented to person, oriented to place , oriented to time, oriented to situation. ABSENT: motor sensory deficit Psychiatric exam: PRESENT: appropriate affect, normal mood. ABSENT: homicidal ideation, suicidal ideation Skin exam: PRESENT: dry, intact, warm. ABSENT: cyanosis, rash Results Laboratory Results: 01/20/18 05:09 01/20/18 05:09 01/20/18 01/20/18 05:09 05:09 WBC 4.3 RBC 3.69 L Hgb 9.4 L Hct 30.0 L MCV 81 MCH 25.4 L MCHC 31.3 L RDW 23.5 H Plt Count 142 L Seg Neutrophils % 77.1 Lymphocytes % 15.0 Monocytes % 7.0 Eosinophils % 0.2 Basophils % 0.7 Absolute Neutrophils 3.3 Absolute Lymphocytes 0.7 Absolute Monocytes 0.3 Absolute Eosinophils 0.0 Absolute Basophils 0.0 Sodium Cancelled Potassium Cancelled Chloride Cancelled Carbon Dioxide Cancelled Anion Gap Cancelled BUN Cancelled Creatinine Cancelled Est GFR ( Amer) Cancelled Est GFR (Non-Af Amer) Cancelled Glucose Cancelled Calcium Cancelled Impressions: Hip X-Ray 01/19/18 18:41 IMPRESSION: Comminuted intertrochanteric fracture of the left hip with subtrochanteric extension. Status: Imported from PACS Assessment & Plan - Diagnosis (1) Intertrochanteric fracture of left hip Qualifiers: Encounter type: initial encounter Fracture type: closed Fracture alignment: displaced Qualified Code(s): S72.142A - Displaced intertrochanteric fracture of left femur, initial encounter for closed fracture Is this a current diagnosis for this admission?: Yes Plan: 77-year-old household ambulator with a left intratrochanteric femur fracture. Tentative plan will be for an open reduction internal fixation under choice anesthesia tomorrow. - Time Time Spent: 50 to 70 Minutes Anticipated discharge: Home with Homehealth Within: Other
[2018-01-20 06:57] LABS: ABSOLUTE RETICS # 0.136 10^6/uL (0.028-0.122); RETICULOCYTE COUNT (AUTO) 3.68 % (0.66-2.85)
[2018-01-20 07:27] LABS: ANION GAP 10 (5-19); BLOOD UREA NITROGEN 24 mg/dL (7-20); CALCIUM 10.2 mg/dL (8.4-10.2); CARBON DIOXIDE 32 mmol/L (22-30); CHLORIDE 103 mmol/L (98-107); GLUCOSE 144 mg/dL (75-110); IRON(TIBC) 51.7 ug/dL (37-170); POTASSIUM 3.4 mmol/L (3.6-5.0); SODIUM 145.1 mmol/L (137-145)
[2018-01-20] MEDS ORDERED: ALPRAZOLAM 0.5 MG TABLET PO SCH (08:00)
[2018-01-20] MEDS ORDERED: DILTIAZEM HCL 240 MG CAPSULE.CR PO SCH (08:00)
[2018-01-20 08:42] LABS: FOLATE > 20.00 ng/mL (>2.76)
[2018-01-20] MEDS: METOPROLOL SUCCINATE 25 MG TAB.SR.24H PO SCH (08:48)
[2018-01-20] MEDS: DOCUSATE SODIUM 100 MG CAPSULE PO SCH ×2 (09:10→17:50)
--- NOTE | 2018-01-20 09:59 | EKG REPORT ---
SEVERITY:- BORDERLINE ECG - SINUS RHYTHM BORDERLINE T ABNORMALITIES, ANT-LAT LEADS : Confirmed by: Garland Shabazz MD 20-Jan-2018 09:58:21
[2018-01-20] MEDS ORDERED: HYDRALAZINE HCL INJ/PF 20 MG/1 ML SDV IV PRN (11:05)
--- NOTE | 2018-01-20 11:13 | PDOC PROGRESS REPORT ---
Subjective Progress Note for:: 01/20/18 Subjective:: The patient is a 77 year old female with a PMH of PAF, DM, HTN, HLD, anemia, and lymphoma who was admitted on 01/19/18 for left intertrichanteric hip fracture from a mechanical fall at home. The patient was seen on morning rounds with multiple family members present. She is found resting in bed comfortable on room air. She reports mild discomfort to her left hip, but otherwise has no complaints at this time. She reports that she uses a quad walker and tripped over one of the prongs while ambulating at home. She denies fever, chills, headache, dizziness, chest pain, palpitations, dyspnea , orthopnea, abdominal pain, nausea and vomiting. They have no questions or concerns at this time. Nursing requests to access patient's port as they have not been able to obtain PIV access. Reason For Visit: HIP FRACTURE, HTN, DIABETES Physical Exam Vital Signs: Temp Pulse Resp BP Pulse Ox 97.7 F 59 L 14 166/67 H 98 01/20/18 07:15 01/20/18 09:35 01/20/18 09:35 01/20/18 07:15 01/20/18 09:35 Intake & Output 01/19/18 01/20/18 01/21/18 06:59 06:59 06:59 Intake Total 500 118 Output Total 1350 Balance -850 118 Weight 95.3 kg General appearance: PRESENT: no acute distress, cooperative, obese, well- developed, well-nourished Head exam: PRESENT: atraumatic, normocephalic Eye exam: PRESENT: conjunctiva pink, EOMI, PERRLA. ABSENT: scleral icterus Ear exam: PRESENT: normal external ear exam Mouth exam: PRESENT: moist, tongue midline Neck exam: ABSENT: carotid bruit, JVD, lymphadenopathy, thyromegaly Respiratory exam: PRESENT: clear to auscultation minerva, symmetrical, unlabored. ABSENT: rales, rhonchi, wheezes Cardiovascular exam: PRESENT: RRR, +S1, +S2. ABSENT: diastolic murmur, rubs, systolic murmur Pulses: PRESENT: normal dorsalis pedis pul Vascular exam: PRESENT: normal capillary refill GI/Abdominal exam: PRESENT: normal bowel sounds, soft. ABSENT: distended, guarding, mass, organolmegaly, rebound, tenderness Rectal exam: PRESENT: deferred Extremities exam: PRESENT: other - LLE tender, externally rotated. ABSENT: calf tenderness, clubbing, pedal edema Neurological exam: PRESENT: alert, awake, oriented to person, oriented to place , oriented to time, oriented to situation, CN II-XII grossly intact. ABSENT: motor sensory deficit Psychiatric exam: PRESENT: appropriate affect, normal mood. ABSENT: homicidal ideation, suicidal ideation Skin exam: PRESENT: dry, intact, warm. ABSENT: cyanosis, rash Results Laboratory Results: 01/20/18 05:09 01/20/18 06:49 01/20/18 01/20/18 01/20/18 05:09 05:09 06:49 WBC 4.3 RBC 3.69 L Hgb 9.4 L Hct 30.0 L MCV 81 MCH 25.4 L MCHC 31.3 L RDW 23.5 H Plt Count 142 L Seg Neutrophils % 77.1 Lymphocytes % 15.0 Monocytes % 7.0 Eosinophils % 0.2 Basophils % 0.7 Absolute Neutrophils 3.3 Absolute Lymphocytes 0.7 Absolute Monocytes 0.3 Absolute Eosinophils 0.0 Absolute Basophils 0.0 Retic Count (auto) Absolute Retic Sodium Cancelled 145.1 H Potassium Cancelled 3.4 L Chloride Cancelled 103 Carbon Dioxide Cancelled 32 H Anion Gap Cancelled 10 BUN Cancelled 24 H Creatinine Cancelled 1.19 Est GFR ( Amer) Cancelled 53 L Est GFR (Non-Af Amer) Cancelled 44 L Glucose Cancelled 144 H Calcium Cancelled 10.2 Iron 51.7 TIBC 336 % Saturation 15 Ferritin 30.00 Vitamin B12 > 1000.0 H Folate > 20.00 01/20/18 06:49 WBC RBC Hgb Hct MCV MCH MCHC RDW Plt Count Seg Neutrophils % Lymphocytes % Monocytes % Eosinophils % Basophils % Absolute Neutrophils Absolute Lymphocytes Absolute Monocytes Absolute Eosinophils Absolute Basophils Retic Count (auto) 3.68 H Absolute Retic 0.136 H Sodium Potassium Chloride Carbon Dioxide Anion Gap BUN Creatinine Est GFR ( Amer) Est GFR (Non-Af Amer) Glucose Calcium Iron TIBC % Saturation Ferritin Vitamin B12 Folate Impressions: Hip X-Ray 01/19/18 18:41 IMPRESSION: Comminuted intertrochanteric fracture of the left hip with subtrochanteric extension. Assessment & Plan - Diagnosis (1) Intertrochanteric fracture of left hip Qualifiers: Encounter type: initial encounter Fracture type: closed Fracture alignment: displaced Qualified Code(s): S72.142A - Displaced intertrochanteric fracture of left femur, initial encounter for closed fracture Is this a current diagnosis for this admission?: Yes Plan: Patient presented with a left intertrochanteric hip fracture from a mechanical fall at home. Imaging demonstrated a comminuted intertrochanteric fracture of the left hip with subtrochanteric extension. Orthopedics has been consulted; plans for ORIF tomorrow morning. Currently on Heparin SC for DVT prophylaxis. Will defer postoperative DVT prophylaxis to orthopedic's expertise. Analgesics and antiemetics as needed. N.p.o. after midnight. (2) HTN (hypertension) Is this a current diagnosis for this admission?: Yes Plan: Continue home dose diltiazem and metoprolol. IV hydralazine as needed for blood pressure control. Cardiac diet. (3) HLD (hyperlipidemia) Is this a current diagnosis for this admission?: Yes Plan: Patient has a statin allergy. Cardiac diet. (4) Diabetes Qualifiers: Diabetes mellitus type: type 2 Diabetes mellitus emt intermediate insulin use: without emt intermediate use Diabetes mellitus complication status: with unspecified complications Qualified Code(s): E11.8 - Type 2 diabetes mellitus with unspecified complications Is this a current diagnosis for this admission?: Yes Plan: Her oral diabetic medications were held while inpatient. She is placed on a cardiac/consistent carb diet. Accu-Cheks before meals and at bedtime with Humalog for sliding scale coverage. (5) Anemia Qualifiers: Anemia type: unspecified type Qualified Code(s): D64.9 - Anemia, unspecified Is this a current diagnosis for this admission?: Yes Plan: The patient endorses a history of iron deficiency anemia; on supplementation at home. She was admitted with a hemoglobin of 10.1; she does not know her baseline, however it appears that it was as high as and September of this year. Has trended down to 9.4 with IV fluids. Will continue oral iron supplementation. Will type and cross with next routine labs in anticipation of possible need for postoperative replacement. (6) Paroxysmal atrial fibrillation Is this a current diagnosis for this admission?: Yes Plan: Ekg demonstrated Accelerated Junctional Rhythm. Continue home dose diltiazem and metoprolol. Will obtain echo and cardiac consultation for surgical clearance. - Time Time Spent with patient: 25-34 minutes Medications reviewed and adjusted accordingly: Yes Anticipated discharge: SNF - Short term rehab Within: within 72 hours - Inpatient Certification Based on my medical assessment, after consideration of the patient's comorbidities, presenting symptoms, or acuity I expect that the services needed warrant INPATIENT care.: Yes I certify that my determination is in accordance with my understanding of Medicare's requirements for reasonable and necessary INPATIENT services [42 CFR 412.3e].: Yes Medical Necessity: Need For Continuous Telemetry Monitoring, Need for Surgery
[2018-01-20] MEDS ORDERED: POTASSIUM CHLORIDE 10 MEQ CAPSULE.ER PO ONE (11:30)
--- NOTE | 2018-01-20 12:01 | RADIOLOGY REPORT (SQ) ---
EXAM DESCRIPTION: CHEST SINGLE VIEW COMPLETED DATE/TIME: 01/20/2018 11:33 am REASON FOR STUDY: preop COMPARISON: 2006 NUMBER OF VIEWS: One view. TECHNIQUE: Single frontal radiographic view of the chest acquired. LIMITATIONS: None. FINDINGS: LUNGS AND PLEURA: Low lung volumes with basilar subsegmental atelectasis. MEDIASTINUM AND HILAR STRUCTURES: Stable contours. HEART AND VASCULAR STRUCTURES: Stable heart size without overt failure. BONES: Osteopenic. HARDWARE: Left subclavian central line crosses the midline terminating in the region of the superior vena cava. This is chronic. OTHER: No other significant finding. IMPRESSION: Stable chest without acute cardiopulmonary disease. TECHNICAL DOCUMENTATION: JOB ID: [id number] [employer]- All Rights Reserved Reading location - IP/workstation name: [email or web address]
[2018-01-20] MEDS ORDERED: ALPRAZOLAM 0.5 MG TABLET PO PRN (12:16)
--- NOTE | 2018-01-20 12:39 | PDOC CONSULTATION ---
Consultation Consult Date: 01/20/18 Attending physician:: DAVID PATEL Consult reason:: Preop cardiovascular evaluation History of Present Illness Admission Date/PCP: 01/19/18 20:21 MARCO DAY Patient complains of: Left hip pain History of Present Illness: SHARYN PETERS is a 77 year old female with a past medical history of paroxysmal atrial fibrillation, diabetes, hypertension, osteoarthritis and dyslipidemia. Presents after tripping over her cane landing on her left side resulting in left sided hip pain and inability to bear weight. Patient denies striking her head or other injury, chest pain, shortness of breath, nausea or vomiting. In the emergency room she is found to have a left-sided hip fracture and referred to the hospitalist for admission. Patient denies recent recent falls, change in medications and otherwise feels well. Patient is minimally ambulatory at baseline walking no further than 30-40 feet limited by arthritic pain. Patient had a stress test performed quite a few years ago which she claims was negative. Patient is denying any chest arm or neck discomfort. Patient does have some shortness of breath on exertion but denied any PND, orthopnea, sustained palpitations, syncope, near syncope. Patient also denied any pedal edema. Patient activities limited due to presence of osteoarthritis. Patient sees Dr. Lee Jacobsen in [place] for paroxysmal atrial fibrillation. Patient has not been on any chronic anticoagulation. Past Medical History Cardiac Medical History: Reports: Atrial Fibrillation Musculoskeltal Medical History: Reports: Arthritis Past Surgical History Past Surgical History: Reports: Cholecystectomy Social History Information Source: Patient Lives with: Spouse/Significant other Smoking Status: Never Smoker Frequency of Alcohol Use: None Drugs: None - Advance Directive Resuscitation Status: Full Code Surrogate healthcare decision maker:: Patient's at the surrogate decision-maker Family History Family History: Reviewed & Not Pertinent, Hypertension Parental Family History Reviewed: Yes Children Family History Reviewed: Yes Sibling(s) Family History Reviewed.: Yes Medication/Allergy Home Medications: Alprazolam [Xanax 0.5 mg Tablet] 0.5 mg PO DAILY 01/20/18 Chlorthalidone [Hygroton 25 mg Tablet] 25 mg PO DAILY 01/20/18 Colchicine [Colchicine 0.6 mg Tablet] 0.6 mg PO DAILY 01/20/18 Diltiazem HCl [Tiazac] 420 mg PO DAILY 01/20/18 Febuxostat [Uloric 80 mg Tablet] 80 mg PO DAILY 01/20/18 Glipizide [Glipizide Xl] 10 mg PO Q12 01/20/18 Metoprolol Succinate [Toprol Xl] 50 mg PO DAILY 01/20/18 Potassium Chloride 20 meq PO TID 01/20/18 Sitagliptin Phosphate [Januvia] 100 mg PO DAILY 01/20/18 Torsemide 100 mg PO DAILY 01/20/18 Allergies/Adverse Reactions: Jmeukra-Ctm-Bzw Reductase Inhibitor Adverse Reaction (Verified 01/19/18 22:02) Review of Systems Review of Systems: Please see history of present illness and past medical history as wall. Constitutional: No fever or chills reported. Head : No recent chronic headaches, recent head injury. Eyes: No recent eye pain, diplopia, redness, discharge, acute visual changes. Ears: No recent chronic ear pain, acute hearing loss, ear discharge. Oral cavity: No recent ulcerations, bleeding, oral cavity discomfort. Neck: No recent acute neck pain reported. Hematologic: No recent easy bruising or bleeding. Lymphatic: No recent lymph node enlargement reported. Cardiovascular system review: See history of present illness. Respiratory system review: No hemoptysis or blood clots in the lungs reported. Mild Shortness of breath on exertion Gastrointestinal system review: Negative for any recent acute hematemesis, melena. Genitourinary system review: No recent acute or chronic hematuria, flank pain, UTI etc. reported. Skin system review: Negative for any recent abnormal bruising, no rash, no pruritus reported. Neurologic: No prior history of strokes, mini strokes, seizure disorder. Psychologic: No history of major psychosis or major depression reported. Musculoskeletal: Minor aches and pains reported. No acute joint swelling reported. Endocrine: No recent polyuria, polydipsia, recent heat or cold intolerance. Physical Exam Vital Signs: Temp Pulse Resp BP Pulse Ox 97.9 F 59 L 16 173/63 H 95 01/20/18 11:10 01/20/18 11:10 01/20/18 11:10 01/20/18 11:10 01/20/18 11:10 Intake & Output 01/19/18 01/20/18 01/21/18 06:59 06:59 06:59 Intake Total 500 118 Output Total 1350 Balance -850 118 Weight 95.3 kg Exam: GENERAL: well-nourished and in no acute distress. Alert and oriented x3 HEAD: Atraumatic, normocephalic. EYES: LA, sclera anicteric, conjunctiva are normal. ENT: Moist mucous membranes. No oral ulcerations or bleeding gums noted. No obvious ear, nose or throat abnormalities noted. NECK: supple without lymphadenopathy. Trachea is central. No cervical or axillary lymphadenopathy noted. Carotids are 2+, JVD WNL LUNGS: Breath sounds clear bilaterally. No wheezes rales or rhonchi noted. No significant dullness noted on percussion. CHEST: Palpation of the chest wall shows no significant chest wall tenderness. 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 ABDOMEN: Soft, no significant tenderness appreciated, normoactive bowel sounds. No guarding, no rebound. No rigidity noted . No masses appreciated. EXTREMITIES: Pedal pulses are 1-2+, no calf tenderness noted. No clubbing or cyanosis. negative pedal edema noted NEUROLOGICAL: Focused neurological exam showed no significant neurologic deficit. Normal speech, no focal weakness appreciated. PSYCH: Normal mood, normal affect. Judgment and insight within normal limits. SKIN: No significant ecchymosis, skin is noted to be warm. MUSCULOSKELETAL EXAM: No significant acute joint swelling noted. Findings of acute left hip fracture noted with shortening of the left leg. Results Laboratory Results: 01/20/18 05:09 01/20/18 06:49 01/20/18 01/20/18 01/20/18 05:09 05:09 06:49 WBC 4.3 RBC 3.69 L Hgb 9.4 L Hct 30.0 L MCV 81 MCH 25.4 L MCHC 31.3 L RDW 23.5 H Plt Count 142 L Seg Neutrophils % 77.1 Lymphocytes % 15.0 Monocytes % 7.0 Eosinophils % 0.2 Basophils % 0.7 Absolute Neutrophils 3.3 Absolute Lymphocytes 0.7 Absolute Monocytes 0.3 Absolute Eosinophils 0.0 Absolute Basophils 0.0 Retic Count (auto) Absolute Retic Sodium Cancelled 145.1 H Potassium Cancelled 3.4 L Chloride Cancelled 103 Carbon Dioxide Cancelled 32 H Anion Gap Cancelled 10 BUN Cancelled 24 H Creatinine Cancelled 1.19 Est GFR ( Amer) Cancelled 53 L Est GFR (Non-Af Amer) Cancelled 44 L Glucose Cancelled 144 H Calcium Cancelled 10.2 Iron 51.7 TIBC 336 % Saturation 15 Ferritin 30.00 Vitamin B12 > 1000.0 H Folate > 20.00 01/20/18 06:49 WBC RBC Hgb Hct MCV MCH MCHC RDW Plt Count Seg Neutrophils % Lymphocytes % Monocytes % Eosinophils % Basophils % Absolute Neutrophils Absolute Lymphocytes Absolute Monocytes Absolute Eosinophils Absolute Basophils Retic Count (auto) 3.68 H Absolute Retic 0.136 H Sodium Potassium Chloride Carbon Dioxide Anion Gap BUN Creatinine Est GFR ( Amer) Est GFR (Non-Af Amer) Glucose Calcium Iron TIBC % Saturation Ferritin Vitamin B12 Folate EKG Comments: Sinus bradycardia, no acute ST-T wave changes noted. Impressions: Hip X-Ray 01/19/18 18:41 IMPRESSION: Comminuted intertrochanteric fracture of the left hip with subtrochanteric extension. Chest X-Ray 01/20/18 00:00 IMPRESSION: Stable chest without acute cardiopulmonary disease. Assessment & Plan - Diagnosis (1) Preoperative cardiovascular examination Is this a current diagnosis for this admission?: Yes (2) Paroxysmal atrial fibrillation Is this a current diagnosis for this admission?: Yes (3) HLD (hyperlipidemia) Is this a current diagnosis for this admission?: Yes (4) HTN (hypertension) Is this a current diagnosis for this admission?: Yes (5) Intertrochanteric fracture of left hip Qualifiers: Encounter type: initial encounter Fracture type: closed Fracture alignment: displaced Qualified Code(s): S72.142A - Displaced intertrochanteric fracture of left femur, initial encounter for closed fracture Is this a current diagnosis for this admission?: Yes - Notes Notes: Preop cardiovascular examination: Patient cleared for left hip surgery. Patient currently in sinus rhythm, no clinical CHF noted. Patient has had no recent chest pains. Surgery is needed. Patient therefore cleared for surgery. A 2D echocardiogram which has been ordered will be reviewed when performed but did not suspect any high-grade stenotic lesions. Patient will benefit from good pain control, DVT prophylaxis and pulmonary toilet. Paroxysmal atrial fibrillation: Patient claims no recent recurrences. However observe for any recurrence of atrial fibrillation. If this happens, could consider amiodarone IV bolus and drip protocol. Hypertension: Blood pressure under satisfactory control. Continue home medications. Hyperlipidemia: Continue hypotensive statin therapy. Intertrochanteric fracture of the left hip: This is being managed by orthopedic surgeon. Am told patient is scheduled for surgery tomorrow. We will be happy to cover any postop complications. - Time Time Spent: 30 to 50 Minutes Medications reviewed and adjusted accordingly: Yes
[2018-01-20] MEDS: RINGERS SOLUTION,LACTATED 1,000 ML IV PRN (17:50)
[2018-01-20] MEDS: FERROUS SULFATE 325 MG TABLET PO SCH (17:50)
--- NOTE | 2018-01-20 20:25 | XCELERA REPORT ---
[address] [address] Transthoracic Echocardiogram Report Name: SHARYN PETERS Age: 77 yrs Gender: Female : 1940 Patient Status: Inpatient Patient Location: [address] [place] [address] Study Date: 01/20/2018 02:31 PM Height: 65 in Weight: 210 lb BSA: 2.0 m2 Procedure: A complete two-dimensional transthoracic echocardiogram was performed (2D, M-mode, spectral and color flow Doppler). The study was technically adequate with some images being suboptimal in quality. Reason For Study: preop clearance Ordering Physician: DIVINE URIBE Performed By: Nadine Lynn Interpretation Summary The left ventricular ejection fraction is normal. Doppler measurements suggest pseudonormalized left ventricular relaxation, which is associated with grade II/IV or mild to moderate diastolic dysfunction The right ventricular systolic function is normal. The left atrium is mildly dilated. There is a mild amount of mitral regurgitation There is no mitral valve stenosis. There is no aortic valve stenosis No aortic regurgitation is present. The inferior vena cava appeared normal and decreased > 50% with respiration (RAP 5-10 mmHg) The aortic root is not well visualized but is probably normal size. Minimal pericardial effusion. MMode/2D Measurements & Calculations RVDd: 3.1 cm LVIDd: 5.2 cm FS: 45.2 % Ao root diam: 3.2 cm IVSd: 1.1 cm LVIDs: 2.9 cm EDV(Teich): 130.1 ml Ao root area: 8.1 cm2 LVPWd: 1.1 cm ESV(Teich): 31.0 ml EF(Teich): 76.2 % LVOT diam: 1.9 cm LVOT area: 3.0 cm2 Doppler Measurements & Calculations MV E max ajay: MV dec slope: Ao V2 max: LV V1 max P.5 cm/sec 472.7 cm/sec2 144.3 cm/sec 5.4 mmHg MV A max ajay: MV dec time: 0.20 secAo max PG: LV V1 max: 90.3 cm/sec 8.3 mmHg 116.1 cm/sec MV E/A: 1.0 PRIMITIVO(V,D): 2.4 cm2 MR max ajay: PA V2 max: TR max ajay: 463.0 cm/sec 99.9 cm/sec 171.9 cm/sec MR max PG: PA max P.0 mmHg TR max P.8 mmHg 11.8 mmHg Left Ventricle The left ventricle is grossly normal size. There is mild concentric left ventricular hypertrophy. The left ventricular ejection fraction is normal. Doppler measurements suggest pseudonormalized left ventricular relaxation, which is associated with grade II/IV or mild to moderate diastolic dysfunction. Wall motion cannot be accurately commented on, but no definite regional wall motion abnormalities noted. Right Ventricle The right ventricle is grossly normal size. The right ventricular systolic function is normal. Atria The right atrium is normal in size. The left atrium is mildly dilated. Interarterial septum not well visualized and not well dopplered. Cannot comment on ASD/PFO presence. Mitral Valve The mitral valve leaflets are sclerotic, but show no functional abnormalities. There is no mitral valve stenosis. There is a mild amount of mitral regurgitation. Aortic Valve The aortic valve is not well visualized secondary to technical limitations. There is no aortic valve stenosis. No aortic regurgitation is present. Tricuspid Valve The tricuspid valve is not well visualized secondary to technical limitations. There is no tricuspid stenosis. There is a trace or physiologic amount of tricuspid regurgitation. Tricuspid regurgitation jet envelope not well defined to measure RV systolic pressure accurately. Pulmonic Valve The pulmonic valve is not well visualized. Great Vessels The aortic root is not well visualized but is probably normal size. The inferior vena cava appeared normal and decreased > 50% with respiration (RAP 5-10 mmHg). Effusions Minimal pericardial effusion. : DIVINE URIBE > Joe Jacob
[2018-01-21] MEDS: HEPARIN SOD (PORCINE) 5,000 UNIT/ML 1 ML SYRINGE SUBCUT SCH ×2 (05:09→14:25)
[2018-01-21 05:31] LABS: ABSOLUTE EOSINOPHILS # (AUTO) 0.1 10^3/uL (0.0-0.6); ABSOLUTE LYMPHOCYTES (AUTO) 0.5 10^3/uL (0.5-4.7); ABSOLUTE MONOCYTES (AUTO) 0.3 10^3/uL (0.1-1.4); ABSOLUTE NEUT (AUTO) 3.4 10^3/uL (1.7-8.2); BASOPHILS % (AUTO) 0.3 % (0-2); EOSINOPHILS % (AUTO) 1.9 % (0-6); HEMATOCRIT 30.2 % (36.0-47.0); HEMOGLOBIN 9.6 g/dL (12.0-15.5); LYMPHOCYTES % (AUTO) 10.6 % (13-45); MEAN CORPUSCULAR HEMOGLOBIN 26.1 pg (27.0-33.4); MEAN CORPUSCULAR VOLUME 82 fl (80-97); MONOCYTES % (AUTO) 7.9 % (3-13); PLATELET COUNT 144 10^3/uL (150-450); RED CELL DISTRIBUTION WIDTH 23.4 % (11.5-14.0); SEGMENTED NEUTROPHILS % (AUTO) 79.3 % (42-78); TOTAL CELLS COUNTED % (AUTO) 100 %; WHITE BLOOD COUNT 4.3 10^3/uL (4.0-10.5)
[2018-01-21 05:53] LABS: ANION GAP 9 (5-19); BLOOD UREA NITROGEN 18 mg/dL (7-20); CALCIUM 9.8 mg/dL (8.4-10.2); CARBON DIOXIDE 30 mmol/L (22-30); CHLORIDE 105 mmol/L (98-107); GLUCOSE 104 mg/dL (75-110); POTASSIUM 3.7 mmol/L (3.6-5.0); SODIUM 144.4 mmol/L (137-145)
[2018-01-21] MEDS: METOPROLOL SUCCINATE 25 MG TAB.SR.24H PO SCH (07:54)
[2018-01-21] MEDS: MORPHINE SULFATE 10 MG/ML INJ IV PRN ×2 (09:48→13:08)
[2018-01-21] MEDS: DILTIAZEM HCL 240 MG CAPSULE.CR PO SCH (09:50)
[2018-01-21] MEDS: TORSEMIDE 20 MG TABLET PO SCH (09:50)
[2018-01-21] MEDS: DILTIAZEM HCL 180 MG CAPSULE.CR PO SCH (09:50)
[2018-01-21] MEDS ORDERED: METOPROLOL SUCCINATE 25 MG TAB.SR.24H PO SCH (10:00)
[2018-01-21] MEDS ORDERED: (PENDING PHARMACY ID) (Torsemide [Torsemide] 100 MG) PO SCH (10:00)
[2018-01-21] MEDS ORDERED: DILTIAZEM HCL 420 MG PO SCH (10:00)
[2018-01-21] MEDS: CHLORTHALIDONE 25 MG TABLET PO SCH (10:07)
[2018-01-21] MEDS: FEBUXOSTAT 80 MG TABLET PO SCH (10:07)
[2018-01-21] MEDS: FERROUS SULFATE 325 MG TABLET PO SCH ×2 (10:08→19:49)
[2018-01-21] MEDS: DOCUSATE SODIUM 100 MG CAPSULE PO SCH ×2 (10:08→19:49)
--- NOTE | 2018-01-21 10:33 | EKG REPORT ---
SEVERITY:- ABNORMAL ECG - SINUS RHYTHM CONSIDER POSTERIOR INFARCT MINIMAL ST DEPRESSION, ANTEROLATERAL LEADS : Confirmed by: Joe Jacob 21-Jan-2018 10:32:44
--- NOTE | 2018-01-21 12:11 | PDOC PROGRESS REPORT ---
Subjective Progress Note for:: 01/21/18 Subjective:: The patient is a 77 year old female with a PMH of PAF, DM, HTN, HLD, anemia, and lymphoma who was admitted on 01/19/18 for left intertrichanteric hip fracture from a mechanical fall at home. The patient was seen on morning rounds with her present. She is found resting in bed comfortable on supplemental oxygen at 2lpm. She reports mild discomfort to her left hip, that is well managed with current pain medications. She denies fever, chills, headache, dizziness, chest pain, palpitations, dyspnea , orthopnea, abdominal pain, nausea and vomiting. They have no questions or concerns at this time. Nursing noted the patient to have low oxygen saturations (mid 80s) on room air early this morning. The patient denies any upper respiratory symptoms. Her did state that she snores and has pauses at night, but has never been evaluated for sleep apnea. She is encouraged to utilize her incentive spirometer and to report any developing symptoms. Reason For Visit: HIP FRACTURE, HTN, DIABETES Physical Exam Vital Signs: Temp Pulse Resp BP Pulse Ox 98.4 F 86 16 178/73 H 95 01/21/18 08:09 01/21/18 08:53 01/21/18 08:53 01/21/18 08:09 01/21/18 08:53 Intake & Output 01/20/18 01/21/18 01/22/18 06:59 06:59 06:59 Intake Total 500 1592 Output Total 1350 1100 Balance -850 492 Weight 95.3 kg 94.4 kg General appearance: PRESENT: no acute distress, cooperative - Very pleasant, obese, well-developed, well-nourished Head exam: PRESENT: atraumatic, normocephalic Eye exam: PRESENT: conjunctiva pink, EOMI, PERRLA. ABSENT: scleral icterus Ear exam: PRESENT: normal external ear exam Mouth exam: PRESENT: moist, tongue midline Neck exam: ABSENT: carotid bruit, JVD, lymphadenopathy, thyromegaly Respiratory exam: PRESENT: clear to auscultation minerva, symmetrical, unlabored. ABSENT: rales, rhonchi, wheezes Cardiovascular exam: PRESENT: RRR, +S1, +S2. ABSENT: diastolic murmur, rubs, systolic murmur Pulses: PRESENT: normal dorsalis pedis pul Vascular exam: PRESENT: normal capillary refill GI/Abdominal exam: PRESENT: normal bowel sounds, soft. ABSENT: distended, guarding, mass, organolmegaly, rebound, tenderness Rectal exam: PRESENT: deferred Extremities exam: PRESENT: tenderness - LLE; slight shortening/external rotation. ABSENT: calf tenderness, clubbing, pedal edema Neurological exam: PRESENT: alert, awake, oriented to person, oriented to place , oriented to time, oriented to situation, CN II-XII grossly intact. ABSENT: motor sensory deficit Psychiatric exam: PRESENT: appropriate affect, normal mood. ABSENT: homicidal ideation, suicidal ideation Skin exam: PRESENT: dry, intact, warm. ABSENT: cyanosis, rash Results Laboratory Results: 01/21/18 04:44 01/21/18 04:44 01/21/18 01/21/18 01/21/18 04:44 04:44 04:44 WBC 4.3 RBC 3.70 L Hgb 9.6 L Hct 30.2 L MCV 82 MCH 26.1 L MCHC 32.0 RDW 23.4 H Plt Count 144 L Seg Neutrophils % 79.3 H Lymphocytes % 10.6 L Monocytes % 7.9 Eosinophils % 1.9 Basophils % 0.3 Absolute Neutrophils 3.4 Absolute Lymphocytes 0.5 Absolute Monocytes 0.3 Absolute Eosinophils 0.1 Absolute Basophils 0.0 Sodium 144.4 Potassium 3.7 Chloride 105 Carbon Dioxide 30 Anion Gap 9 BUN 18 Creatinine 0.90 Est GFR ( Amer) > 60 Est GFR (Non-Af Amer) > 60 Glucose 104 Calcium 9.8 Blood Type AB POSITIVE Antibody Screen NEGATIVE Impressions: Hip X-Ray 01/19/18 18:41 IMPRESSION: Comminuted intertrochanteric fracture of the left hip with subtrochanteric extension. Chest X-Ray 01/20/18 00:00 IMPRESSION: Stable chest without acute cardiopulmonary disease. Assessment & Plan - Diagnosis (1) Intertrochanteric fracture of left hip Qualifiers: Encounter type: initial encounter Fracture type: closed Fracture alignment: displaced Qualified Code(s): S72.142A - Displaced intertrochanteric fracture of left femur, initial encounter for closed fracture Is this a current diagnosis for this admission?: Yes Plan: Patient presented with a left intertrochanteric hip fracture from a mechanical fall at home. Imaging demonstrated a comminuted intertrochanteric fracture of the left hip with subtrochanteric extension. Orthopedics has been consulted; plans for ORIF this afternoon. Cardiology was consulted; appreciate their timely evaluation for cardiac clearance. Currently on Heparin SC for DVT prophylaxis. Will defer postoperative DVT prophylaxis to orthopedic's expertise. Analgesics and antiemetics as needed. (2) HTN (hypertension) Is this a current diagnosis for this admission?: Yes Plan: Continue home medication regiment of diltiazem, metoprolol, chlorthalidone, and torsemide. IV hydralazine as needed for blood pressure control. Daily weights. Cardiac diet. (3) HLD (hyperlipidemia) Is this a current diagnosis for this admission?: Yes Plan: Patient has a statin allergy. Cardiac diet. 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 She is placed on a cardiac/consistent carb diet. Accu-Cheks before meals and at bedtime with Humalog for sliding scale coverage. (5) Anemia Qualifiers: Anemia type: unspecified type Qualified Code(s): D64.9 - Anemia, unspecified Is this a current diagnosis for this admission?: Yes Plan: The patient endorses a history of iron deficiency anemia; on supplementation at home. She was admitted with a hemoglobin of 10.1; she does not know her baseline, however it appears that it was as high as and September of this year. Trended down to 9.4 with IV fluids, now stable at 9.6. Will continue oral iron supplementation. She has been blood banded in anticipation of possible need for postoperative replacement. (6) Paroxysmal atrial fibrillation Is this a current diagnosis for this admission?: Yes Plan: Currently in NSR. Echocardiogram revealed revealed LVEF 76% with mild to moderate diastolic dysfunction. Cardiology was consulted and has provided cardiac clearance. Recommends continuing home medication regiment. (7) Hypoxia Is this a current diagnosis for this admission?: Yes Plan: The patient was noted to desaturate overnight to 85% while on room air. On exam today, the lung sounds are clear. Patient denies any upper respiratory symptoms; denies fever, chills, rhinorrhea, sore throat, dyspnea, orthopnea, chest pain, palpitations. No pulmonary history and is not prescribed home O2. The patient's does endorse snoring and occasional pauses at night concerning for sleep apnea; pt has never had a overnight sleep study. CXR (01/20/18) stable chest without acute cardiopulmonary disease. Continue supplemental oxygen as needed to maintain saturations greater than 89%. As needed nebulizer treatments. Incentive spirometer hourly while awake. Recommend outpatient follow-up for overnight sleep study. - Time Time Spent with patient: 15-24 minutes Medications reviewed and adjusted accordingly: Yes Anticipated discharge: SNF - Short term rehab
[2018-01-21] MEDS: RINGERS SOLUTION,LACTATED 1,000 ML IV PRN (13:09)
[2018-01-21] MEDS ORDERED: CEFAZOLIN 2 GM/D5W RTU 2 GM/50 ML RTUPB IV ONE (16:17)
[2018-01-21] MEDS ORDERED: KETAMINE HCL INJ 500 MG/10 ML VIAL ONE (16:26)
[2018-01-21] MEDS ORDERED: MIDAZOLAM 2 MG/2 ML INJ ONE (16:26)
[2018-01-21] MEDS ORDERED: ONDANSETRON HCL INJ/PF 4 MG/2 ML SDV ONE (16:26)
[2018-01-21] MEDS ORDERED: PROPOFOL INJ 200 MG/20 ML VIAL IV ONE (16:27)
[2018-01-21] MEDS ORDERED: BUPIVACAINE HCL/DEX-WATER/PF 15 MG/2 ML AMPULE ONE (16:31)
[2018-01-21] MEDS ORDERED: DIPHENHYDRAMINE HCL 50 MG/ML VIAL IV PRN (17:18)
[2018-01-21] MEDS ORDERED: FENTANYL CITRATE INJ/PF 100 MCG/2 ML AMPUL IV PRN ×2 (17:18)
[2018-01-21] MEDS ORDERED: PROMETHAZINE HCL INJ 25 MG/1 ML VIAL IV PRN (17:18)
[2018-01-21] MEDS ORDERED: MEPERIDINE HCL/PF INJ 25 MG/1 ML DISP.SYRIN IV PRN (17:18)
--- NOTE | 2018-01-21 17:36 | Operative Report ---
Operative Report DATE OF SURGERY: 01/21/18 PREOPERATIVE DIAGNOSIS: Left intratrochanteric femur fracture OPERATION: Open reduction internal fixation left intertrochanteric femur fracture SURGEON: JOHN RIVAS ANESTHESIA: Spinal ESTIMATED BLOOD LOSS: 100 PROCEDURE: With the patient supine on the fracture table left lower extremity is manipulated under fluoroscopic guidance to affect a near anatomic reduction. Subsequently extremities prepped and draped in a sterile fashion. Pin is placed percutaneously through the skin through the greater trochanter down into the proximal femoral metadiaphysis. Fluoroscopically and felt to be adequate. A combined reamer was then used to fashion a cortical opening. The pin in the reamer are removed and a ball-tipped guide rods placed down the femur. Femoral length is measured to be 360 mm. Subsequently Remlap gamma 311 mm x 360 mm x 125 degree nail was advanced over the ball-tipped guide maciel to the proximal interlock in the appropriate position. Subsequent 105 mm proximal interlock is placed and secured from above with a locking screw. Under fluoroscopic guidance freehand a distal interlock was placed through the dynamic hole in the distal femoral metadiaphysis. The wounds irrigated. The closure is interrupted Vicryl followed by andrea. A sterile compressive dressing is applied. The patient's return to PACU in satisfactory condition.
--- NOTE | 2018-01-21 19:05 | RADIOLOGY REPORT (SQ) ---
EXAM DESCRIPTION: FEMUR LEFT COMPLETED DATE/TIME: 01/21/2018 6:02 pm REASON FOR STUDY: LT HIP NAILING COMPARISON: None. FLUOROSCOPY TIME: 0.6 minute 5 images saved to PACS. TECHNIQUE: Intra-operative images acquired during surgical procedure to evaluate progress. NUMBER OF IMAGES: 5 images LIMITATIONS: None. FINDINGS: Fluoroscopic images were obtained during left hip pinning. Please refer to the surgeon's operative report for additional information. IMPRESSION: IMAGE(S) OBTAINED DURING PROCEDURE. COMMENT: Quality ID [id number]: Final reports for procedures using fluoroscopy that document radiation exp osure indices, or exposure time and number of fluorographic images (if radiation exposure indices are not available) Please consult full operative report of the attending physician for description of the procedure. TECHNICAL DOCUMENTATION: JOB ID: [id number] [employer]- All Rights Reserved Reading location - IP/workstation name: [email or web address]
--- NOTE | 2018-01-21 19:05 | RADIOLOGY REPORT (SQ) ---
EXAM DESCRIPTION: NO CHG FLUORO COMPLETE DATE/TIME: 01/21/2018 6:02 pm REASON FOR STUDY: LT HIP NAILING FINDINGS: Please see combined report for performance of procedure and radiologic supervision and int erpretation. IMPRESSION: Please see combined report for performance of procedure and radiologic supervision and i nterpretation. Reading location - IP/workstation name: [email or web address]
[2018-01-21] MEDS ORDERED: TRANEXAMIC ACID INJ/PF 1,000 MG/10 ML SDV IV ONE (19:30)
--- NOTE | 2018-01-21 19:53 | PDOC PROGRESS REPORT ---
Subjective Progress Note for:: 01/21/18 Subjective:: Patient awaiting surgery. Still has significant pain in the left hip area but denying any chest pain or shortness of breath. 2D echo results reviewed. Patient seems to be doing better with gradual improvement. Pt is denying any chest arm or neck discomfort. Patient denying any PND, orthopnea. Patient denied any sustained palpitations, dizziness, syncope, near syncope. Patient denying any fever chills. Patient denying any other significant discomfort. Patient is maintaining sinus rhythm. Review of systems: Rest review of systems negative. Medications: Medications have been reviewed. Reason For Visit: HIP FRACTURE, HTN, DIABETES Physical Exam Vital Signs: Temp Pulse Resp BP Pulse Ox 97.5 F 66 18 144/57 H 98 01/21/18 18:52 01/21/18 18:52 01/21/18 18:52 01/21/18 18:52 01/21/18 18:52 Intake & Output 01/20/18 01/21/18 01/22/18 06:59 06:59 06:59 Intake Total 500 2592 450 Output Total 1350 1100 1300 Balance -850 1492 -850 Weight 95.3 kg 94.4 kg Exam: GENERAL: well-nourished and in no acute distress. Alert and oriented x3 HEAD: Atraumatic, normocephalic. EYES: LA, sclera anicteric, conjunctiva are normal. ENT: Moist mucous membranes. No oral ulcerations or bleeding gums noted. No obvious ear, nose or throat abnormalities noted. NECK: supple without lymphadenopathy. Trachea is central. No cervical or axillary lymphadenopathy noted. Carotids are 2+, JVD WNL LUNGS: Breath sounds clear bilaterally. No wheezes rales or rhonchi noted. No significant dullness noted on percussion. CHEST: Palpation of the chest wall shows no significant chest wall tenderness. 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 ABDOMEN: Soft, no significant tenderness appreciated, normoactive bowel sounds. No guarding, no rebound. No rigidity noted . No masses appreciated. EXTREMITIES: Pedal pulses are 1-2+, no calf tenderness noted. No clubbing or cyanosis. negative pedal edema noted NEUROLOGICAL: Focused neurological exam showed no significant neurologic deficit. Normal speech, no focal weakness appreciated. PSYCH: Normal mood, normal affect. Judgment and insight within normal limits. SKIN: No significant ecchymosis, skin is noted to be warm. MUSCULOSKELETAL EXAM: No significant acute joint swelling noted. Left leg shortened, left lower extremity hip fracture noted. Results Laboratory Results: 01/21/18 04:44 01/21/18 04:44 01/21/18 01/21/18 01/21/18 04:44 04:44 04:44 WBC 4.3 RBC 3.70 L Hgb 9.6 L Hct 30.2 L MCV 82 MCH 26.1 L MCHC 32.0 RDW 23.4 H Plt Count 144 L Seg Neutrophils % 79.3 H Lymphocytes % 10.6 L Monocytes % 7.9 Eosinophils % 1.9 Basophils % 0.3 Absolute Neutrophils 3.4 Absolute Lymphocytes 0.5 Absolute Monocytes 0.3 Absolute Eosinophils 0.1 Absolute Basophils 0.0 Sodium 144.4 Potassium 3.7 Chloride 105 Carbon Dioxide 30 Anion Gap 9 BUN 18 Creatinine 0.90 Est GFR ( Amer) > 60 Est GFR (Non-Af Amer) > 60 Glucose 104 Calcium 9.8 Blood Type AB POSITIVE Antibody Screen NEGATIVE EKG Comments: Twelve-lead EKG reviewed. Cannot rule out posterior MS, old. Impressions: Hip X-Ray 01/19/18 18:41 IMPRESSION: Comminuted intertrochanteric fracture of the left hip with subtrochanteric extension. Chest X-Ray 01/20/18 00:00 IMPRESSION: Stable chest without acute cardiopulmonary disease. Femur X-Ray 01/21/18 00:00 IMPRESSION: IMAGE(S) OBTAINED DURING PROCEDURE. Fluoroscopy 01/21/18 00:00 IMPRESSION: Please see combined report for performance of procedure and radiologic supervision and interpretation. Assessment & Plan - Diagnosis (1) Preoperative cardiovascular examination Is this a current diagnosis for this admission?: Yes (2) Paroxysmal atrial fibrillation Is this a current diagnosis for this admission?: Yes (3) HLD (hyperlipidemia) Is this a current diagnosis for this admission?: Yes (4) HTN (hypertension) Is this a current diagnosis for this admission?: Yes (5) Intertrochanteric fracture of left hip Qualifiers: Encounter type: initial encounter Fracture type: closed Fracture alignment: displaced Qualified Code(s): S72.142A - Displaced intertrochanteric fracture of left femur, initial encounter for closed fracture Is this a current diagnosis for this admission?: Yes - Notes Notes: Patient awaiting surgery and felt to be stable from cardiac and medical standpoint. Will repeat postop EKG. Preop cardiovascular examination: Patient cleared for left hip surgery. Patient currently in sinus rhythm, no clinical CHF noted. Patient has had no recent chest pains. Surgery is needed. Patient therefore cleared for surgery. 2D echo results reviewed. It shows normal LVEF, no significant valvular abnormalities noted. Patient will benefit from good pain control, DVT prophylaxis and pulmonary toilet. Paroxysmal atrial fibrillation: Patient claims no recent recurrences. However observe for any recurrence of atrial fibrillation. If this happens, could consider amiodarone IV bolus and drip protocol. Hypertension: Blood pressure under satisfactory control. Continue home medications. Hyperlipidemia: Continue high potency statin therapy. Intertrochanteric fracture of the left hip: This is being managed by orthopedic surgeon. Am told patient is scheduled for surgery tomorrow. We will be happy to cover any postop complications. - Time Time with patient: 15-25 minutes - CODE STATUS was discussed, patient remains full code. Surrogate decision-maker unchanged. Multiple medical problems were addressed. More than 50% of the time spent coordinating care, discussing management plans with involved caregivers. Management plans discussed with involved personnels. Medical decision making was of moderate to high complexity , patient's has multiple comorbidities. Medications reviewed and adjusted accordingly: Yes
[2018-01-22] MEDS: CEFAZOLIN 2 GM/D5W RTU 2 GM/50 ML RTUPB IV SCH ×2 (02:39→10:39)
[2018-01-22] MEDS: RINGERS SOLUTION,LACTATED 1,000 ML IV PRN (06:00)
[2018-01-22 06:40] LABS: ABSOLUTE BASOPHILS # (AUTO) 0.1 10^3/uL (0.0-0.2); ABSOLUTE LYMPHOCYTES (AUTO) 0.8 10^3/uL (0.5-4.7); ABSOLUTE MONOCYTES (AUTO) 0.4 10^3/uL (0.1-1.4); ABSOLUTE NEUT (AUTO) 4.4 10^3/uL (1.7-8.2); BASOPHILS % (AUTO) 0.9 % (0-2); EOSINOPHILS % (AUTO) 0.1 % (0-6); HEMATOCRIT 25.2 % (36.0-47.0); HEMOGLOBIN 8.1 g/dL (12.0-15.5); LYMPHOCYTES % (AUTO) 14.6 % (13-45); MEAN CORPUSCULAR HEMOGLOBIN 26.3 pg (27.0-33.4); MEAN CORPUSCULAR HGB CONC 32.3 g/dL (32.0-36.0); MEAN CORPUSCULAR VOLUME 81 fl (80-97); MONOCYTES % (AUTO) 7.8 % (3-13); PLATELET COUNT 139 10^3/uL (150-450); RED BLOOD COUNT 3.09 10^6/uL (3.72-5.28); RED CELL DISTRIBUTION WIDTH 23.6 % (11.5-14.0); SEGMENTED NEUTROPHILS % (AUTO) 76.6 % (42-78); TOTAL CELLS COUNTED % (AUTO) 100 %; WHITE BLOOD COUNT 5.7 10^3/uL (4.0-10.5)
[2018-01-22 07:07] LABS: ANION GAP 11 (5-19); BLOOD UREA NITROGEN 20 mg/dL (7-20); CALCIUM 9.4 mg/dL (8.4-10.2); CARBON DIOXIDE 30 mmol/L (22-30); CHLORIDE 104 mmol/L (98-107); GLUCOSE 122 mg/dL (75-110); POTASSIUM 3.5 mmol/L (3.6-5.0); SODIUM 144.6 mmol/L (137-145)
--- NOTE | 2018-01-22 07:37 | PDOC PROGRESS REPORT ---
Subjective Progress Note for:: 01/22/18 Reason For Visit: HIP FRACTURE, HTN, DIABETES 77-year-old white female now postop day 1 status post open reduction internal fixation of a left intratrochanteric femur fracture. Patient's not yet received physical therapy. Physical Exam Vital Signs: Temp Pulse Resp BP Pulse Ox 37.6 C 80 15 141/58 H 99 01/22/18 02:47 01/22/18 02:47 01/21/18 23:40 01/22/18 02:47 01/22/18 05:33 Intake & Output 01/21/18 01/22/18 01/23/18 06:59 06:59 06:59 Intake Total 2592 1500 Output Total 1100 1900 Balance 1492 -400 Weight 94.4 kg 94.9 kg General appearance: PRESENT: no acute distress, mild distress, obese, well- nourished Respiratory exam: PRESENT: unlabored Cardiovascular exam: PRESENT: RRR Pulses: PRESENT: +1 pedal pulses bilateral Vascular exam: PRESENT: normal capillary refill GI/Abdominal exam: PRESENT: soft Rectal exam: PRESENT: deferred Extremities exam: PRESENT: other - Left lower extremity dressings with minor drainage. Leg lengths are equal. Distal neurovascular examination is intact. Neurological exam: PRESENT: alert, awake, oriented to person, oriented to place , oriented to time, oriented to situation. ABSENT: motor sensory deficit Psychiatric exam: PRESENT: appropriate affect, normal mood. ABSENT: homicidal ideation, suicidal ideation Skin exam: PRESENT: dry, intact, warm. ABSENT: cyanosis, rash Results Laboratory Results: 01/22/18 06:10 01/22/18 06:10 01/22/18 01/22/18 06:10 06:10 WBC 5.7 RBC 3.09 L Hgb 8.1 L Hct 25.2 L MCV 81 MCH 26.3 L MCHC 32.3 RDW 23.6 H Plt Count 139 L Seg Neutrophils % 76.6 Lymphocytes % 14.6 Monocytes % 7.8 Eosinophils % 0.1 Basophils % 0.9 Absolute Neutrophils 4.4 Absolute Lymphocytes 0.8 Absolute Monocytes 0.4 Absolute Eosinophils 0.0 Absolute Basophils 0.1 Sodium 144.6 Potassium 3.5 L Chloride 104 Carbon Dioxide 30 Anion Gap 11 BUN 20 Creatinine 0.97 Est GFR ( Amer) > 60 Est GFR (Non-Af Amer) 56 L Glucose 122 H Calcium 9.4 Impressions: Hip X-Ray 01/19/18 18:41 IMPRESSION: Comminuted intertrochanteric fracture of the left hip with subtrochanteric extension. Chest X-Ray 01/20/18 00:00 IMPRESSION: Stable chest without acute cardiopulmonary disease. Femur X-Ray 01/21/18 00:00 IMPRESSION: IMAGE(S) OBTAINED DURING PROCEDURE. Fluoroscopy 01/21/18 00:00 IMPRESSION: Please see combined report for performance of procedure and radiologic supervision and interpretation. Status: Imported from PACS Assessment & Plan - Diagnosis (1) Intertrochanteric fracture of left hip Qualifiers: Encounter type: initial encounter Fracture type: closed Fracture alignment: displaced Qualified Code(s): S72.142A - Displaced intertrochanteric fracture of left femur, initial encounter for closed fracture Is this a current diagnosis for this admission?: Yes Plan: Mobilized with physical therapy and weightbearing as tolerated basis. Discontinue Ferguson. - Time Time Spent with patient: 15-24 minutes Anticipated discharge: SNF Within: Other
[2018-01-22] MEDS: OXYCODONE HCL IR 5 MG TABLET PO PRN (08:06)
--- NOTE | 2018-01-22 10:02 | EKG REPORT ---
SEVERITY:- BORDERLINE ECG - SINUS RHYTHM BORDERLINE LEFT AXIS DEVIATION BORDERLINE T ABNORMALITIES, ANT-LAT LEADS : Confirmed by: Joe Jacob 22-Jan-2018 10:00:07
[2018-01-22] MEDS: FEBUXOSTAT 80 MG TABLET PO SCH ×2 (10:39→11:15)
[2018-01-22] MEDS: DILTIAZEM HCL 180 MG CAPSULE.CR PO SCH (10:40)
[2018-01-22] MEDS: CHLORTHALIDONE 25 MG TABLET PO SCH (10:40)
[2018-01-22] MEDS: FERROUS SULFATE 325 MG TABLET PO SCH ×2 (10:40→17:29)
[2018-01-22] MEDS: TORSEMIDE 20 MG TABLET PO SCH (10:41)
[2018-01-22] MEDS: DILTIAZEM HCL 240 MG CAPSULE.CR PO SCH (10:42)
[2018-01-22] MEDS: DOCUSATE SODIUM 100 MG CAPSULE PO SCH ×2 (10:42→17:29)
[2018-01-22] MEDS: METOPROLOL SUCCINATE 50 MG TAB.SR.24H PO SCH (10:42)
--- NOTE | 2018-01-22 15:42 | PDOC PROGRESS REPORT ---
Subjective Progress Note for:: 01/22/18 Subjective:: No adverse events overnight. No new complaints. Pain is been well controlled. She has not had an appetite today. Just had surgery on her hip last night. She was unable to do very much with physical therapy today. Apparently she does not ambulate very much at baseline at home. Reason For Visit: HIP FRACTURE, HTN, DIABETES Physical Exam Vital Signs: Temp Pulse Resp BP Pulse Ox 98.1 F 73 12 130/58 H 94 01/22/18 11:08 01/22/18 14:00 01/22/18 11:08 01/22/18 11:08 01/22/18 11:08 Intake & Output 01/21/18 01/22/18 01/23/18 06:59 06:59 06:59 Intake Total 2592 1500 50 Output Total 1100 1900 Balance 1492 -400 50 Weight 94.4 kg 94.9 kg General appearance: PRESENT: no acute distress, cooperative - Very pleasant, obese, well-developed, well-nourished Respiratory exam: PRESENT: clear to auscultation minerva, symmetrical, unlabored. ABSENT: rales, rhonchi, wheezes Cardiovascular exam: PRESENT: RRR, +S1, +S2. ABSENT: diastolic murmur, rubs, systolic murmur Pulses: PRESENT: normal dorsalis pedis pul Vascular exam: PRESENT: normal capillary refill GI/Abdominal exam: PRESENT: normal bowel sounds, soft. ABSENT: distended, guarding, mass, organolmegaly, rebound, tenderness Rectal exam: PRESENT: deferred Extremities exam: PRESENT: appropriate tenderness left hip. ABSENT: calf tenderness, clubbing, pedal edema Neurological exam: PRESENT: alert, awake, oriented to person, oriented to place , oriented to time, oriented to situation Psychiatric exam: PRESENT: appropriate affect, normal mood. Skin exam: PRESENT: dry, intact, warm. ABSENT: cyanosis, rash Results Laboratory Results: 01/22/18 06:10 01/22/18 06:10 01/22/18 01/22/18 06:10 06:10 WBC 5.7 RBC 3.09 L Hgb 8.1 L Hct 25.2 L MCV 81 MCH 26.3 L MCHC 32.3 RDW 23.6 H Plt Count 139 L Seg Neutrophils % 76.6 Lymphocytes % 14.6 Monocytes % 7.8 Eosinophils % 0.1 Basophils % 0.9 Absolute Neutrophils 4.4 Absolute Lymphocytes 0.8 Absolute Monocytes 0.4 Absolute Eosinophils 0.0 Absolute Basophils 0.1 Sodium 144.6 Potassium 3.5 L Chloride 104 Carbon Dioxide 30 Anion Gap 11 BUN 20 Creatinine 0.97 Est GFR ( Amer) > 60 Est GFR (Non-Af Amer) 56 L Glucose 122 H Calcium 9.4 Impressions: Hip X-Ray 01/19/18 18:41 IMPRESSION: Comminuted intertrochanteric fracture of the left hip with subtrochanteric extension. Chest X-Ray 01/20/18 00:00 IMPRESSION: Stable chest without acute cardiopulmonary disease. Femur X-Ray 01/21/18 00:00 IMPRESSION: IMAGE(S) OBTAINED DURING PROCEDURE. Fluoroscopy 01/21/18 00:00 IMPRESSION: Please see combined report for performance of procedure and radiologic supervision and interpretation. Assessment & Plan - Diagnosis (1) Intertrochanteric fracture of left hip Qualifiers: Encounter type: initial encounter Fracture type: closed Fracture alignment: displaced Qualified Code(s): S72.142A - Displaced intertrochanteric fracture of left femur, initial encounter for closed fracture Is this a current diagnosis for this admission?: Yes Plan: Postop day #1 status post open reduction internal fixation. Pain control is adequate. Weightbearing recommendations per orthopedics. I suspect she will probably need fpc facility placement for rehab. - Time Time Spent with patient: 15-24 minutes
[2018-01-22] MEDS ORDERED: FEBUXOSTAT 80 MG TABLET PO SCH (18:00)
[2018-01-23] MEDS: OXYCODONE HCL IR 5 MG TABLET PO PRN ×2 (04:37→14:14)
--- NOTE | 2018-01-23 07:08 | PDOC PROGRESS REPORT ---
Subjective Progress Note for:: 01/23/18 Reason For Visit: HIP FRACTURE, HTN, DIABETES 77-year-old white female postop day 2 status post open reduction internal fixation of a left proximal femur fracture. Patient made minimal progress with physical therapy yesterday. Physical Exam Vital Signs: Temp Pulse Resp BP Pulse Ox 36.9 C 68 20 152/67 H 95 01/22/18 23:16 01/23/18 02:00 01/22/18 23:16 01/22/18 23:16 01/22/18 23:16 Intake & Output 01/22/18 01/23/18 01/24/18 06:59 06:59 06:59 Intake Total 1500 1945 Output Total 1900 250 Balance -400 1695 Weight 94.9 kg 95 kg General appearance: PRESENT: no acute distress, mild distress, obese, well- nourished Head exam: PRESENT: normocephalic Respiratory exam: PRESENT: unlabored Cardiovascular exam: PRESENT: RRR Pulses: PRESENT: +1 pedal pulses bilateral Vascular exam: PRESENT: normal capillary refill GI/Abdominal exam: PRESENT: soft Rectal exam: PRESENT: deferred Extremities exam: PRESENT: other - Left lower extremity dressings with small amount of old drainage and nothing fresh. Leg lengths are equal. Distal neurovascular examination is intact. Neurological exam: PRESENT: alert, awake, oriented to person, oriented to place , oriented to time, oriented to situation. ABSENT: motor sensory deficit Psychiatric exam: PRESENT: appropriate affect, normal mood. ABSENT: homicidal ideation, suicidal ideation Skin exam: PRESENT: dry, intact, warm. ABSENT: cyanosis, rash Results Laboratory Results: 01/22/18 06:10 01/22/18 06:10 01/22/18 06:10 Sodium 144.6 Potassium 3.5 L Chloride 104 Carbon Dioxide 30 Anion Gap 11 BUN 20 Creatinine 0.97 Est GFR ( Amer) > 60 Est GFR (Non-Af Amer) 56 L Glucose 122 H Calcium 9.4 Impressions: Hip X-Ray 01/19/18 18:41 IMPRESSION: Comminuted intertrochanteric fracture of the left hip with subtrochanteric extension. Chest X-Ray 01/20/18 00:00 IMPRESSION: Stable chest without acute cardiopulmonary disease. Femur X-Ray 01/21/18 00:00 IMPRESSION: IMAGE(S) OBTAINED DURING PROCEDURE. Fluoroscopy 01/21/18 00:00 IMPRESSION: Please see combined report for performance of procedure and radiologic supervision and interpretation. Status: Imported from PACS Assessment & Plan - Diagnosis (1) Intertrochanteric fracture of left hip Qualifiers: Encounter type: initial encounter Fracture type: closed Fracture alignment: displaced Qualified Code(s): S72.142A - Displaced intertrochanteric fracture of left femur, initial encounter for closed fracture Is this a current diagnosis for this admission?: Yes Plan: Plan for continued mobilization with physical therapy and weightbearing as tolerated basis. Anticipate the need for half-way facility placement when medical condition permits. - Time Time Spent with patient: 15-24 minutes Anticipated discharge: SNF Within: when bed available
[2018-01-23] MEDS: MORPHINE SULFATE 10 MG/ML INJ IV PRN ×2 (07:44→10:46)
[2018-01-23 09:30] VITALS: BP 156/84
[2018-01-23] MEDS: TORSEMIDE 20 MG TABLET PO SCH (09:43)
[2018-01-23] MEDS: METOPROLOL SUCCINATE 50 MG TAB.SR.24H PO SCH (09:44)
[2018-01-23] MEDS: DILTIAZEM HCL 180 MG CAPSULE.CR PO SCH (09:45)
[2018-01-23] MEDS: CHLORTHALIDONE 25 MG TABLET PO SCH (09:45)
[2018-01-23] MEDS: DOCUSATE SODIUM 100 MG CAPSULE PO SCH (09:46)
[2018-01-23] MEDS: FERROUS SULFATE 325 MG TABLET PO SCH (09:46)
[2018-01-23] MEDS: DILTIAZEM HCL 240 MG CAPSULE.CR PO SCH (10:51)
[2018-01-23 12:09] LABS: HEMATOCRIT 25.7 % (36.0-47.0); HEMOGLOBIN 8.3 g/dL (12.0-15.5); MEAN CORPUSCULAR HEMOGLOBIN 26.5 pg (27.0-33.4); MEAN CORPUSCULAR HGB CONC 32.2 g/dL (32.0-36.0); MEAN CORPUSCULAR VOLUME 82 fl (80-97); PLATELET COUNT 166 10^3/uL (150-450); RED BLOOD COUNT 3.13 10^6/uL (3.72-5.28); RED CELL DISTRIBUTION WIDTH 24.1 % (11.5-14.0)
[2018-01-23 12:26] LABS: ANION GAP 8 (5-19); BLOOD UREA NITROGEN 23 mg/dL (7-20); CALCIUM 9.1 mg/dL (8.4-10.2); CARBON DIOXIDE 35 mmol/L (22-30); CHLORIDE 100 mmol/L (98-107); GLUCOSE 137 mg/dL (75-110); POTASSIUM 3.3 mmol/L (3.6-5.0); SODIUM 142.5 mmol/L (137-145)
[2018-01-23] MEDS ORDERED: POTASSIUM CHLORIDE 10 MEQ CAPSULE.ER PO ONE (14:29)
--- NOTE | 2018-01-23 15:07 | TRANSFER SUMMARY E ---
Transfer Summary NAME: SHARYN PETERS : 1940 AGE: 77Y ADMITTED: 01/19/2018 TRANSFERRED: 01/23/2018 CODE STATUS: Full code. PRIMARY CARE PROVIDER: Frida Spain M.D. OPERATIVE ORTHOPEDIST: Rickey Duque M.D. DISCHARGE DIAGNOSES: 1. Left hip intertrochanteric fracture, postoperative day #2. 2. Paroxysmal atrial fibrillation. 3. Diabetes mellitus type 2. 4. Hypertension. 5. Osteoarthritis. 6. Dyslipidemia. DISCHARGE MEDICATIONS: 1. Potassium chloride 20 mEq p.o. b.i.d. 2. OxyIR 5 mg p.o. q.6 hours p.r.n., 30 tablets, zero refills. 3. Xanax 0.5 mg p.o. daily p.r.n., 7 tablets, zero refills. 4. Torsemide 100 mg p.o. daily. 5. Januvia 100 mg p.o. daily. 6. Toprol XL 50 mg p.o. daily. 7. Glipizide XL 10 mg p.o. q.12 hours. 8. Uloric 80 mg p.o. daily. 9. Tiazac 420 mg p.o. daily. 10. Colchicine 0.6 mg p.o. daily. 11. Chlorthalidone 25 mg p.o. daily. ACTIVITY: Per rehab standards. DIET: Heart healthy, diabetic as tolerated. CONDITION: Good. DIAGNOSTIC VALUES: Hematology obtained on 01/23/2018; WBC is 5.0, hemoglobin is 8.3, hematocrit is 25.7, platelet count is 166,000. Chemistry obtained on 01/23/2018; sodium is 142, potassium 3.3, chloride 100, carbon dioxide 25, BUN 23, creatinine is 1.22, glucose 137, calcium is 9.1, magnesium is 2.1. Total bilirubin is 1, AST 114, ALT 42, alkaline phosphatase 37, total protein 6, albumin 3.5. Iron 51.7, TIBC is 336, percent saturation 15, ferritin is 30, B12 greater than 1000, folate greater than 20. A chest x-ray obtained on 01/20/2018 reveals stable chest without acute cardiopulmonary disease. HISTORY OF THE PRESENT ILLNESS: The patient is a 77-year-old female with a past medical history of paroxysmal atrial fibrillation and diabetes. The patient presented to the emergency department after tripping over her cane, which resulted in her landing on her left side. The patient stated she immediately felt excruciating left hip pain and was unable to bear weight. The patient denied striking her head or other injury. No chest pain, no syncope, no shortness of breath, nausea, or vomiting. While in the emergency department the patient was found to have a left-sided hip fracture and was referred to the hospitalist for admission and management. The patient denies any recent fall and has felt better otherwise. The patient at baseline is minimally ambulatory and denies being able to walk more than 30 to 40 feet and is severely limited due to arthritic pain. HOSPITAL COURSE: The patient was admitted to the surgical unit. The patient underwent ORIF with Dr. Duque on 01/21/2018. The patient's course, postoperatively, has been uncomplicated. The patient's electrolytes have been in a good range. The patient's hemoglobin was 10.1 on admission, trended down to 8.1, but is now 8.3. The patient has participate in therapies and has been cleared for rehabilitation. The patient's blood pressure has been in a good range and the patient was resumed on all of her home medications. DISCHARGE PLAN: The patient is to follow up with Dr. Duque on 02/06/2018 at 1600, as already scheduled. TIME SPENT: On this discharge including assessment and plan, physical examination, patient education, review of records, and family meeting is 35 minutes. DICTATING PHYSICIAN: CANDI CRESPO NP [id number] PHY#: [id number] ID: [id number] JOB#: [id number] ACCT: [id number] cc:CANDI CRESPO NP >
--- NOTE | 2018-01-24 12:12 | PDOC PROGRESS REPORT ---
Subjective Progress Note for:: 01/22/18 Subjective:: Patient is status post surgery. Still has significant pain in the left hip area but denying any chest pain or shortness of breath. Patient did just do some weightbearing and little walking. Cardiac torres she has been stable. 2D echo results reviewed. Patient seems to be doing better with gradual improvement. Pt is denying any chest arm or neck discomfort. Patient denying any PND, orthopnea. Patient denied any sustained palpitations, dizziness, syncope, near syncope. Patient denying any fever chills. Patient denying any other significant discomfort. Patient is maintaining sinus rhythm. Review of systems: Rest review of systems negative. Medications: Medications have been reviewed. Reason For Visit: HIP FRACTURE, HTN, DIABETES Physical Exam Vital Signs: Temp Pulse Resp BP Pulse Ox 98.4 F 75 16 158/65 H 95 01/22/18 16:26 01/22/18 19:00 01/22/18 16:26 01/22/18 16:26 01/22/18 16:26 Intake & Output 01/21/18 01/22/18 01/23/18 06:59 06:59 06:59 Intake Total 2592 1500 1608 Output Total 1100 1900 250 Balance 1492 -400 1358 Weight 94.4 kg 94.9 kg Exam: GENERAL: well-nourished and in no acute distress. Alert and oriented x3 HEAD: Atraumatic, normocephalic. EYES: LA, sclera anicteric, conjunctiva are normal. ENT: Moist mucous membranes. No oral ulcerations or bleeding gums noted. No obvious ear, nose or throat abnormalities noted. NECK: supple without lymphadenopathy. Trachea is central. No cervical or axillary lymphadenopathy noted. Carotids are 2+, JVD WNL LUNGS: Breath sounds clear bilaterally. No wheezes rales or rhonchi noted. No significant dullness noted on percussion. CHEST: Palpation of the chest wall shows no significant chest wall tenderness. 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 ABDOMEN: Soft, no significant tenderness appreciated, normoactive bowel sounds. No guarding, no rebound. No rigidity noted . No masses appreciated. EXTREMITIES: Pedal pulses are 1-2+, no calf tenderness noted. No clubbing or cyanosis. negative pedal edema noted NEUROLOGICAL: Focused neurological exam showed no significant neurologic deficit. Normal speech, no focal weakness appreciated. PSYCH: Normal mood, normal affect. Judgment and insight within normal limits. SKIN: No significant ecchymosis, skin is noted to be warm. MUSCULOSKELETAL EXAM: No significant acute joint swelling noted. Results Laboratory Results: 01/22/18 06:10 01/22/18 06:10 01/22/18 01/22/18 06:10 06:10 WBC 5.7 RBC 3.09 L Hgb 8.1 L Hct 25.2 L MCV 81 MCH 26.3 L MCHC 32.3 RDW 23.6 H Plt Count 139 L Seg Neutrophils % 76.6 Lymphocytes % 14.6 Monocytes % 7.8 Eosinophils % 0.1 Basophils % 0.9 Absolute Neutrophils 4.4 Absolute Lymphocytes 0.8 Absolute Monocytes 0.4 Absolute Eosinophils 0.0 Absolute Basophils 0.1 Sodium 144.6 Potassium 3.5 L Chloride 104 Carbon Dioxide 30 Anion Gap 11 BUN 20 Creatinine 0.97 Est GFR ( Amer) > 60 Est GFR (Non-Af Amer) 56 L Glucose 122 H Calcium 9.4 EKG Comments: Telemetry shows sinus rhythm without any sustained tachycardia or bradycardia. Impressions: Hip X-Ray 01/19/18 18:41 IMPRESSION: Comminuted intertrochanteric fracture of the left hip with subtrochanteric extension. Chest X-Ray 01/20/18 00:00 IMPRESSION: Stable chest without acute cardiopulmonary disease. Femur X-Ray 01/21/18 00:00 IMPRESSION: IMAGE(S) OBTAINED DURING PROCEDURE. Fluoroscopy 01/21/18 00:00 IMPRESSION: Please see combined report for performance of procedure and radiologic supervision and interpretation. Assessment & Plan - Diagnosis (1) Paroxysmal atrial fibrillation Is this a current diagnosis for this admission?: Yes (2) HLD (hyperlipidemia) Is this a current diagnosis for this admission?: Yes (3) HTN (hypertension) Is this a current diagnosis for this admission?: Yes (4) Intertrochanteric fracture of left hip Qualifiers: Encounter type: initial encounter Fracture type: closed Fracture alignment: displaced Qualified Code(s): S72.142A - Displaced intertrochanteric fracture of left femur, initial encounter for closed fracture Is this a current diagnosis for this admission?: Yes - Notes Notes: Postop cardiovascular examination: Patient doing well. Postop EKG showing no significant ST-T wave changes. Patient currently in sinus rhythm, no clinical CHF noted. Patient has had no recent chest pains. Surgery is needed. Patient therefore cleared for surgery. 2D echo results reviewed. It shows normal LVEF , no significant valvular abnormalities noted. Patient will benefit from good pain control, DVT prophylaxis and pulmonary toilet. Paroxysmal atrial fibrillation: Patient claims no recent recurrences. However observe for any recurrence of atrial fibrillation. If this happens, could consider amiodarone IV bolus and drip protocol. Hypertension: Blood pressure under satisfactory control. Continue home medications. Hyperlipidemia: Continue high potency statin therapy. Intertrochanteric fracture of the left hip: Patient is status post surgery. This is being managed by orthopedic surgeon. So far no perioperative complications noted. Continue with pain control, rehab and DVT prophylaxis as well as pulmonary toilet. - Time Time with patient: 15-25 minutes - CODE STATUS was discussed, patient remains full code. Surrogate decision-maker unchanged. Multiple medical problems were addressed. More than 50% of the time spent coordinating care, discussing management plans with involved caregivers. Management plans discussed with involved personnels. Medical decision making was of moderate to high complexity , patient's has multiple comorbidities. Medications reviewed and adjusted accordingly: Yes
== END 2018-01-23 16:00 | DRG 482 ==
LOC: ER 18:32 → EH 20:21 → 4S 22:31
PROVIDERS: ADMIT Internal Medicine; ATTEND Internal Medicine
PROC: 3E0F73Z Introduction of Anti-inflammatory into Respiratory Tract, Via Natural or Artificial Opening (ICD-10-PCS; 2018-01-20)
PROC: 0QS736Z Reposition Left Upper Femur with Intramedullary Internal Fixation Device, Percutaneous Approach (ICD-10-PCS; principal; 2018-01-21 17:00)
DX: S72.142A Displaced intertrochanteric fracture of left femur, initial encounter for closed fracture (principal); W01.0XXA Fall on same level from slipping, tripping and stumbling without subsequent striking against object, initial encounter; I10 Essential (primary) hypertension; E11.9 Type 2 diabetes mellitus without complications; I48.0 Paroxysmal atrial fibrillation; M19.90 Unspecified osteoarthritis, unspecified site; E78.00 Pure hypercholesterolemia, unspecified; R00.1 Bradycardia, unspecified; E86.0 Dehydration; D50.9 Iron deficiency anemia, unspecified; R09.02 Hypoxemia; Z79.899 Other long term (current) drug therapy; Z90.49 Acquired absence of other specified parts of digestive tract; Z88.8 Allergy status to other drugs, medicaments and biological substances; Z82.49 Family history of ischemic heart disease and other diseases of the circulatory system; Z85.72 Personal history of non-Hodgkin lymphomas
CPT/HCPCS: 01230; 36415; 71045; 80048; 80053; 82607; 82728; 82746; 82962; 83540; 83550; 83735; 85025; 85027; 85045; 86850; 86900; 86901; 93005; 93010; 93306; 94799; 99285; C1713; C1769; G8978-GP; G8979-GP; J0690; J1815; J2250; J2270; J2405; J2704; J3490; J7030; J7040; J7120

== ENCOUNTER 2019-08-12 09:38 | Day surgery (SDC) | payer MEDICARE, OTHER ==
[~2019-08-12 09:38] MED LIST: BUPIVACAINE HCL 0.75% INJ/PF (7.5 MG/1 ML) 10 ML SDV OS PRN; CHONDR SU A NA/HYALUR INTRAOC KIT (SURGICARE) ONE; EPINEPHRINE INJ/PF 1 MG/1 ML AMPULE ONE; FENTANYL CITRATE INJ/PF 100 MCG/2 ML AMPUL ONE; KETOROLAC TROMETHAMINE 0.45% 4 DROP/0.4 ML DROPERETTE OS PRN; LIDOCAINE 1% INJ-PF (10 MG/ML) 30 ML SDV ONE; LIDOCAINE 1%/PHENYLEPHRINE 1.5% 1 ML VIAL ONE; LIDOCAINE 4% INJ/PF (40 MG/ML) 5 ML AMPUL OS PRN; MIDAZOLAM 2 MG/2 ML INJ ONE; ONDANSETRON HCL INJ/PF 4 MG/2 ML SDV ONE
[2019-08-12] MEDS: TETRACAINE HCL 0.5% OPH SOLN 4 ML OS PRN ×3 (10:03→10:37)
[2019-08-12] MEDS: CYCLOPENTOLATE 0.2%/PHENYLEPHRINE 1% OPH SOLN 2 ML OS PRN ×3 (10:03→10:26)
[2019-08-12] MEDS: TROPICAMIDE 1% OPH SOLN 15 ML OS PRN ×3 (10:03→10:26)
[2019-08-12] MEDS: BESIFLOXACIN HCL 0.6% OPH SUSP 5 ML BOTTLE OS PRN ×4 (10:03→11:03)
[2019-08-12] MEDS: DORZOLAMIDE HCL 2%/TIMOLOL MALEAT 0.5% OPH SOLN 10 ML OS PRN ×2 (11:03)
--- NOTE | 2019-08-12 11:50 | Operative Report ---
Operative Report-[facility] Operative Report: DATE OF SURGERY: 08/12/2019 PREOPERATIVE DIAGNOSIS: CATARACT, LEFT EYE. POSTOPERATIVE DIAGNOSIS: CATARACT, LEFT EYE. PROCEDURE PERFORMED: PHACOEMULSIFICATION WITH POSTERIOR CHAMBER INTRAOCULAR LENS, LEFT EYE. Intraocular Lens Model : SN60WF 24.5 Total Phaco Time: 40.9 seconds SURGEON: LINDSEY SANTORO MD ANESTHESIA: TOPICAL WITH MAC. INDICATIONS FOR SURGERY: Difficultly driving at night PROCEDURE: The patient was brought to the Operating Room and placed on the operative table. Following tetracaine drops, topical anesthesia was administered. This consisted of instrument wipe pledgets soaked in a solution of 4% Xylocaine mixed with 0.75% Marcaine in a 1:2 ratio. A 2 x 1 cm pledget was placed in the superior fornix. A 1 x 1 cm pledget was placed in the inferior fornix. The eye was patched shut for 5 minutes. The patch was removed. The eye was sterilely prepped and draped in the usual manner. Lid speculum was placed in the eye. The pledgets were removed. 4-0 black silk sutures were placed around the superior and the inferior rectus muscles to be used as traction. A conjunctival peritomy was made at the 10 o'clock position. Hemostasis was obtained with bipolar cautery. A posterior limbal groove was created using a crescent knife and dissected anteriorly towards the cornea. A sharp point blade was used to create a paracentesis site at the 2 o'clock position. 0.2 cc non preserved Lidocaine with phenylepherine was injected into the anterior chamber. A 2.4 mm keratome was used to enter the anterior chamber through the groove. Viscoelastic was injected into the anterior chamber. An anterior capsulotomy was performed using Utrata forceps in a capsulorrhexis fashion. Hydrodissection and hydrodelineation were performed. Phacoemulsification was performed in [id number] technique. Following this, the I/A unit was used to remove residual cortex. Viscoelastic was injected into the capsular bag. The Intraocular lens was placed in the capsular bag. The I/A unit was used to remove residual viscoelastic. The wound was seen to be watertight under high and low pressure, and no sutures were placed. The intraocular lens was well centered. The pressure was adjusted in the eye to normal pressure. The 4-0 black silk sutures and lid speculum were removed. The eye was shielded after Besivance,prednisolone, and Cosopt drops were placed. The patient tolerated the procedure well and was sent to the Recovery Room in good condition.
== END 2019-08-12 11:35 | disposition home or self-care (01) ==
LOC: SC 09:38
PROVIDERS: ATTEND Ophthalmology
DX: H25.813 Combined forms of age-related cataract, bilateral (principal); H57.03 Miosis; H16.223 Keratoconjunctivitis sicca, not specified as Sjogren's, bilateral; H01.00A Unspecified blepharitis right eye, upper and lower eyelids; H01.00B Unspecified blepharitis left eye, upper and lower eyelids; H35.363 Drusen (degenerative) of macula, bilateral; E11.9 Type 2 diabetes mellitus without complications; I10 Essential (primary) hypertension; E78.00 Pure hypercholesterolemia, unspecified; Z88.8 Allergy status to other drugs, medicaments and biological substances; Z79.899 Other long term (current) drug therapy; Z79.84 Long term (current) use of oral hypoglycemic drugs; Z85.72 Personal history of non-Hodgkin lymphomas
CPT/HCPCS: 66984; 82962; 00142; V2632; J2250; J3490 ×4; A9270; J0171; J2405; 142; J3010

== ENCOUNTER 2019-09-02 11:43 | Day surgery (SDC) | payer MEDICARE, OTHER ==
[~2019-09-02 11:43] MED LIST changes: +BUPIVACAINE HCL 0.75% INJ/PF (7.5 MG/1 ML) 10 ML SDV OD PRN; -BUPIVACAINE HCL 0.75% INJ/PF (7.5 MG/1 ML) 10 ML SDV OS PRN; +DORZOLAMIDE HCL 2%/TIMOLOL MALEAT 0.5% OPH SOLN 10 ML OD PRN; -FENTANYL CITRATE INJ/PF 100 MCG/2 ML AMPUL ONE; +KETOROLAC TROMETHAMINE 0.45% 4 DROP/0.4 ML DROPERETTE OD PRN; -KETOROLAC TROMETHAMINE 0.45% 4 DROP/0.4 ML DROPERETTE OS PRN; -LIDOCAINE 1% INJ-PF (10 MG/ML) 30 ML SDV ONE; +LIDOCAINE 4% INJ/PF (40 MG/ML) 5 ML AMPUL OD PRN; -LIDOCAINE 4% INJ/PF (40 MG/ML) 5 ML AMPUL OS PRN; -ONDANSETRON HCL INJ/PF 4 MG/2 ML SDV ONE
[2019-09-02] MEDS: TETRACAINE HCL 0.5% OPH SOLN 4 ML OD PRN ×3 (12:08→12:37)
[2019-09-02] MEDS: CYCLOPENTOLATE 0.2%/PHENYLEPHRINE 1% OPH SOLN 2 ML OD PRN ×3 (12:08→12:30)
[2019-09-02] MEDS: TROPICAMIDE 1% OPH SOLN 15 ML OD PRN ×3 (12:09→12:30)
[2019-09-02] MEDS: BESIFLOXACIN HCL 0.6% OPH SUSP 5 ML BOTTLE OD PRN ×3 (12:09→13:04)
--- NOTE | 2019-09-02 13:17 | Operative Report ---
Operative Report-[facility] Operative Report: DATE OF SURGERY: 09/02/2019 PREOPERATIVE DIAGNOSIS: 1. CATARACT, RIGHT EYE 2. PUPIL MIOSIS, RIGHT EYE POSTOPERATIVE DIAGNOSIS: 1. CATARACT, RIGHT EYE 2. PUPIL MIOSIS, RIGHT EYE PROCEDURE PERFORMED: COMPLEX CATARACT EXTRACTION WITH INTRAOCULAR LENS, RIGHT EYE Intraocular Lens Model: SN60WF 22.5 Total Phaco Time: 5.80 CDE SURGEON: LINDSEY SANTORO MD ANESTHESIA: Topical with MAC plus intraocular phenylephrine and lidocaine INDICATIONS FOR SURGERY: Difficulty reading fine print INDICATIONS FOR COMPLEX: Poor pupil dilation requiring the use of a Malyugin ring PROCEDURE: The patient was brought to the operating room placed on operating table. Topical anesthesia was administered. This consisted of instrument wipe pledgets soaked in a solution of 4% Xylocaine mixed with 0.75% Marcaine in a 1:2 ratio. A 2 x 1 cm pledget was placed in the superior fornix. A 1 x 1 cm pledget was placed in the inferior fornix. The eye was patched for 5 minutes. The patch and pledgets were removed. The eye was sterilely prepped and draped in the usual manner. A lid speculum was placed in the eye. A 4-0 black silk suture was placed around the superior and inferior rectus muscle to use as traction. A conjunctival peritomy was made at the 10 o'clock position. Hemostasis was obtained with bipolar cautery. A posterior limbal groove was created using a crescent knife and dissected anteriorly towards the cornea. Sharp point blade was used to create a paracentesis site at the 2 o'clock position. A 2.4 mm k eratome was used into the anterior chamber through the groove. Then 0.5 mL of 1% non-preserved lidocaine with phenylephrine was injected into the anterior chamber. Viscoelastic was injected into the anterior chamber. Pupil dilation was approximately 4.5 mm. A Malyugin Ring was placed stabilizing the iris. An anterior capsulotomy was performed using Utrata forceps in a capsulorrhexis fashion. Hydrodissection and hydrodelineation was performed. Phacoemulsification was performed in the divide and conquer technique. Following this, that I/A unit was used to remove residual cortex. Viscoelastic was injected into the capsular bag. Intraocular lens were placed in the capsular bag. The Malyugin ring haptics were removed and the ring was removed from the eye. The I/A unit was used to remove residual viscoelastic. The wound was seen to be watertight under high and low pressure and no sutures were placed. The 4-0 black silk sutures and lid speculum were removed. The eye was shielded after Besivance and Cosopt drops were placed. The patient tolerated the procedure well and was sent to recovery room in good condition.
== END 2019-09-02 13:39 | disposition home or self-care (01) ==
LOC: SC 11:43
PROVIDERS: ATTEND Ophthalmology
DX: H25.811 Combined forms of age-related cataract, right eye (principal); H57.03 Miosis; Z96.1 Presence of intraocular lens; I10 Essential (primary) hypertension; E11.9 Type 2 diabetes mellitus without complications; Z88.8 Allergy status to other drugs, medicaments and biological substances; I48.91 Unspecified atrial fibrillation; Z85.72 Personal history of non-Hodgkin lymphomas; E78.00 Pure hypercholesterolemia, unspecified; Z79.899 Other long term (current) drug therapy
CPT/HCPCS: 66982; 82962; J2250; J3490 ×4; A9270; J0171; 142; V2632

== ENCOUNTER 2020-03-05 18:43 | Inpatient (IN) | payer MEDICARE ==
[2020-03-05] MEDS ORDERED: DEXTROSE 50%-WATER 25 GM/50 ML DISP.SYRIN IV ONE ×5 (18:46→23:44)
--- NOTE | 2020-03-05 19:41 | RADIOLOGY REPORT (SQ) ---
EXAM DESCRIPTION: CT HEAD WITHOUT IMAGES COMPLETED DATE/TIME: 03/05/2020 7:27 pm REASON FOR STUDY: Abdominal distention COMPARISON: None. TECHNIQUE: Axial images acquired through the brain without intravenous contrast. Images reviewed wi th bone, brain and subdural windows. Additional sagittal and coronal reconstructions were generated. Images stored on PACS. All CT scanners at this facility use dose modulation, iterative reconstruction, and/or weight based d osing when appropriate to reduce radiation dose to as low as reasonably achievable (ALARA). [facility]: Dose Right [facility]: CareDose [facility]: Dose Right [facility]: Teradose 4D [facility]: [facility] RADIATION DOSE: mGy. LIMITATIONS: None. FINDINGS: VENTRICLES: Prominent ventricles secondary to involutional atrophy. CEREBRUM: Cortical atrophy. No masses. No hemorrhage. No midline shift. No evidence for acute inf arction. Few scattered areas of low density in the white matter most likely chronic small vessel isch emic changes. CEREBELLUM: No masses. No hemorrhage. No alteration of density. No evidence for acute infarction. EXTRAAXIAL SPACES: No fluid collections. No masses. ORBITS AND GLOBE: No intra- or extraconal masses. Normal contour of globe without masses. CALVARIUM: No fracture. PARANASAL SINUSES: No fluid or mucosal thickening. SOFT TISSUES: No mass or hematoma. OTHER: No other significant finding. IMPRESSION: Involutional changes with mild chronic microvascular ischemia. EVIDENCE OF ACUTE STROKE: NO. COMMENT: Quality ID # [id number]: Final reports with documentation of one or more dose reduction techniques (e.g., Automated exposure control, adjustment of the mA and/or kV according to patient size, use of iterative reconstruction technique) TECHNICAL DOCUMENTATION: JOB ID: [id number] 2010 [employer]- All Rights Reserved Reading location - IP/workstation name: [email or web address]
[2020-03-05 20:13] LABS: ALBUMIN 2.2 g/dL (3.5-5.0); ALKALINE PHOSPHATASE 303 U/L (38-126); ASPARTATE AMINO TRANSFERASE 68 U/L (14-36); BILIRUBIN,DIRECT 1.1 mg/dL (0.0-0.4); BILIRUBIN,TOTAL 1.9 mg/dL (0.2-1.3); BLOOD UREA NITROGEN 35 mg/dL (7-20); CALCIUM 8.2 mg/dL (8.4-10.2); CHLORIDE 101 mmol/L (98-107); GLUCOSE 147 mg/dL (75-110); POTASSIUM 3.4 mmol/L (3.6-5.0); TOTAL PROTEIN 5.7 g/dL (6.3-8.2)
[2020-03-05 20:18] LABS: CARBON DIOXIDE 30 mmol/L (22-30)
[2020-03-05 20:19] LABS: ANION GAP 3 (5-19)
[2020-03-05 20:29] LABS: HEMATOCRIT 30.2 % (36.0-47.0); HEMOGLOBIN 10.3 g/dL (12.0-15.5); MEAN CORPUSCULAR HGB CONC 34.1 g/dL (32.0-36.0); MEAN CORPUSCULAR VOLUME 91 fl (80-97); PLATELET COUNT 132 10^3/uL (150-450); RED BLOOD COUNT 3.32 10^6/uL (3.72-5.28); RED CELL DISTRIBUTION WIDTH 18.3 % (11.5-14.0)
[2020-03-05 20:31] LABS: ABSOLUTE LYMPHOCYTES# (MANUAL) 0.6 10^3/uL (0.5-4.7); ABSOLUTE MONOCYTES # (MANUAL) 0.3 10^3/uL (0.1-1.4); BAND NEUTROPHILS % (MANUAL) 3 % (3-5); BASOPHILS % (MANUAL) 0 % (0-2); EOSINOPHILS % (MANUAL) 0 % (0-6); LYMPHOCYTES % (MANUAL) 8 % (13-45); MONOCYTES % (MANUAL) 4 % (3-13); SEGMENTED NEUTROPHILS % (MAN) 85 % (42-78); TOTAL CELLS COUNTED 100
[2020-03-05 20:32] LABS: ANISOCYTOSIS 1+; PLATELET COMMENT ADEQUATE; POLYCHROMASIA 1+
--- NOTE | 2020-03-05 21:11 | RADIOLOGY REPORT (SQ) ---
EXAM DESCRIPTION: CT ABD/PELVIS WITH IV ONLY CLINICAL HISTORY: 80 years Female, Abdominal distention COMPARISON: None. TECHNIQUE: Axial images of the abdomen and pelvis were performed utilizing intravenous contrast, with sagittal and coronal reformatted images. This exam was performed according to our departmental dose-optimization program which includes use of Automated Exposure Control, adjustment of the mA and/or kV according to patient size and/or use of iterative reconstruction technique. FINDINGS: There is cirrhosis. There is splenomegaly, with the spleen measuring 15.4 cm in maximal diameter. There are innumerable low-density lesions throughout the spleen. There is a moderate amount of ascites in the abdomen and pelvis. There are atherosclerotic changes involving the abdominal aorta, but there is no aneurysm. There are small bilateral inguinal hernias containing only fat. No evidence of bowel obstruction. There is no significant radiographic abnormality of the pancreas, adrenal glands or kidneys. There are small bilateral renal cysts. There is bibasilar atelectasis/infiltrate. IMPRESSION: Cirrhosis with ascites. Splenomegaly, with innumerable low-density lesions throughout the spleen. Diagnostic possibilities include metastatic disease, lymphoma, sarcoidosis and an infectious process. Other findings as described.
--- NOTE | 2020-03-05 21:51 | EKG REPORT ---
SEVERITY:- ABNORMAL ECG - SINUS RHYTHM LVH WITH SECONDARY REPOLARIZATION ABNORMALITY PROBABLE INFERIOR INFARCT, AGE INDETERMINATE : Confirmed by: Garland Shabazz MD 05-Mar-2020 21:50:08
--- NOTE | 2020-03-05 22:03 | ER Document Report ---
ED General - General Chief Complaint: Low Blood Sugar Stated Complaint: POSSIBLE STROKE Time Seen by Provider: 03/05/20 18:55 Mode of Arrival: Medic Information source: Patient Notes: This 80-year-old woman presents to the emergency department with a current plan of poorly responsive and low blood sugar. According to the she had low blood sugars throughout the evening 03/04/2020. Every 2 hours her blood sugar would drop in the 30s and able to give her orange juice chocolate and sugars. And today she continues to be poorly responsive EMS was called to the home patient was found to have a blood sugar of 26 she was given 250 mL of D10 and started on D5 patient seems to become slightly improved however unable to answer questions clearly. Repeat blood sugar on the way to the hospital was 51, and a repeat blood sugar by our staff revealed a blood sugar in the 30s. She was gi cullen an amp of D50 and the patient seemed to be more alert, CT of the head was negative for acute intracranial findings. TRAVEL OUTSIDE OF THE [place] IN LAST 30 DAYS: No - Related Data Allergies/Adverse Reactions: Aleolha-Pcr-Kzv Reductase Inhibitor Adverse Reaction (Verified 03/05/20 19:15) Home Medications: Potassium, Glipizide, [place], alprazolam, metoprolol. Past Medical History - Social History Smoking Status: Unknown if Ever Smoked Family History: Reviewed & Not Pertinent, Hypertension Patient has homicidal ideation: No - Past Medical History Cardiac Medical History: Reports: Hx Atrial Fibrillation, Hx Hypertension Denies: Hx Heart Attack Pulmonary Medical History: Denies: Hx Asthma Neurological Medical History: Denies: Hx Cerebrovascular Accident, Hx Seizures Renal/ Medical History: Denies: Hx Peritoneal Dialysis GI Medical History: Denies: Hx Hepatitis, Hx Hiatal Hernia, Hx Ulcer Musculoskeletal Medical History: Reports Hx Arthritis Infectious Medical History: Denies: Hx Hepatitis Past Surgical History: Reports: Hx Cholecystectomy. Denies: Hx Mastectomy, Hx Open Heart Surgery, Hx Pacemaker Review of Systems - Review of Systems Notes: Constitutional: Negative for fever. HENT: Negative for sore throat. Eyes: Negative for visual changes. Cardiovascular: Denies chest pain Respiratory: Negative for shortness of breath. Gastrointestinal: Denies abdominal pain Genitourinary: Negative for dysuria. Musculoskeletal: Negative for back pain. Skin: Negative for rash. Neurological: Negative for headaches, weakness or numbness. 10 point ROS negative except as marked above and in HPI. Physical Exam - Vital signs Vitals: Resp Pulse Ox 17 91 L 03/05/20 18:48 03/05/20 18:48 - Notes Notes: PHYSICAL EXAMINATION: Physical Exam: General: Well-nourished well-developed frail 80-year-old in no acute distress HEENT: NC/AT, pupils equal round and reactive to light, MM moist,nares clear, oropharynx clear, airway patent Neck: supple, no adenopathy, no masses. Good range of motion Lungs: clear, no wheezing, no rales no rhonchi CVS: Regular rate and rhythm no murmur gallop or rub Abdomen: Soft, active, distended, shifting dullness, no masses, no hepatosp lenomegaly Ext: No edema, clubbing or cyanosis. Neuro: Alert and responsive, moving all 4 extremities on command, cranial nerves intact, no focal findings Skin: Intact no open lesions, no rash PSYCH: Normal mood, normal affect. Course - Re-evaluation Re-evalutation: 03/05/20 22:06 Patient has had 2 doses of D50 in the emergency department for blood sugars which were in the 30s or less. She has roses of the liver and an extended release oral food (glipizide ER at 10 mg). Apparently for the past 48 hours she has been having hypoglycemic episodes. Starting a IV with the D5 half-normal saline and the patient is going to be brought into the hospital as observation status. I explained to the that given her liver disease she has very little glucose stores and the medication that she is taking may need to be adj usted. 03/05/20 23:51 I have spoken to the hospitalist, Dr. Harris, we will admit the patient to the hospital service for further ED evaluation and treatment. Patient started on D10 IV since this is her third dose of D50 since entering the emergency department. - Vital Signs Vital signs: Temp Pulse Resp BP Pulse Ox 97.6 F 82 18 126/59 H 95 03/07/20 11:23 03/07/20 12:01 03/07/20 12:01 03/07/20 11:23 03/07/20 12:01 - Laboratory Results Result Diagrams: 03/07/20 09:00 03/07/20 09:00 Laboratory Results Interpreted: 03/05/20 03/05/20 03/05/20 18:46 18:55 18:56 RBC Hgb Hct RDW Plt Count Seg Neuts % (Manual) Lymphocytes % (Manual) Sodium Potassium Anion Gap BUN Est GFR ( Amer) Est GFR (MDRD) Non-Af Glucose POC Glucose 51 L 133 H Hemoglobin A1c % Calcium Magnesium 2.4 H Total Bilirubin Direct Bilirubin AST Alkaline Phosphatase Total Protein Albumin Urine Protein Urine Urobilinogen Leukocyte Esterase Rfl Urine Ascorbic Acid 03/05/20 03/05/20 03/05/20 18:56 18:56 18:56 RBC 3.32 L Hgb 10.3 L Hct 30.2 L RDW 18.3 H Plt Count 132 L Seg Neuts % (Manual) 85 H Lymphocytes % (Manual) 8 L Sodium 134.1 L Potassium 3.4 L Anion Gap 3 L BUN 35 H Est GFR ( Amer) 54 L Est GFR (MDRD) Non-Af 45 L Glucose 147 H POC Glucose Hemoglobin A1c % 4.6 L Calcium 8.2 L Magnesium Total Bilirubin 1.9 H Direct Bilirubin 1.1 H AST 68 H Alkaline Phosphatase 303 H Total Protein 5.7 L Albumin 2.2 L Urine Protein Urine Urobilinogen Leukocyte Esterase Rfl Urine Ascorbic Acid 03/05/20 03/05/20 03/05/20 21:07 21:52 22:24 RBC Hgb Hct RDW Plt Count Seg Neuts % (Manual) Lymphocytes % (Manual) Sodium Potassium Anion Gap BUN Est GFR ( Amer) Est GFR (MDRD) Non-Af Glucose POC Glucose 68 L 43 L Hemoglobin A1c % Calcium Magnesium Total Bilirubin Direct Bilirubin AST Alkaline Phosphatase Total Protein Albumin Urine Protein 30 H Urine Urobilinogen 4.0 H Leukocyte Esterase Rfl SMALL H Urine Ascorbic Acid 40 H 03/05/20 03/05/20 23:01 23:42 RBC Hgb Hct RDW Plt Count Seg Neuts % (Manual) Lymphocytes % (Manual) Sodium Potassium Anion Gap BUN Est GFR ( Amer) Est GFR (MDRD) Non-Af Glucose POC Glucose 45 L 44 L Hemoglobin A1c % Calcium Magnesium Total Bilirubin Direct Bilirubin AST Alkaline Phosphatase Total Protein Albumin Urine Protein Urine Urobilinogen Leukocyte Esterase Rfl Urine Ascorbic Acid Critical Laboratory Results Reviewed: Yes Attending or Supervising Physician who Reviewed Labs: HALLE TYSON - Cirrhosis of the liver, spleen with densities etiology unclear. - Radiology Results Radiology Results Interpreted: 03/05/20 22:[address] 03/05/20 18:57 IMPRESSION: Involutional changes with mild chronic microvascular ischemia. EVIDENCE OF ACUTE STROKE: NO. Abdomen/Pelvis CT 03/05/20 18:58 IMPRESSION: Cirrhosis with ascites. Splenomegaly, with innumerable low-density lesions throughout the spleen. Diagnostic possibilities include metastatic disease, lymphoma, sarcoidosis and an infectious process. Other findings as described. Critical Radiology Results Reviewed: Yes Attending or Supervising Physician who Reviewed Radiology: HALLE TYSON - EKG Interpretation by [facility] EKG shows normal: Sinus rhythm - EKG interpreted by Dr. Tyson: Normal sinus rhythm, rate 95, SC interval 204 ms QT interval 368 ms, LAD, LVH repolarization abnormality, no ischemic findings, there is no old EKG for comparison Interpr etation: Abnormal EKG Critical Care Note - Critical Care Note Total time excluding time spent on procedures (mins): 45 - Critical care time spent obtaining history from patient or surrogate, discussions with consultants, development of treatment plan with patient or surrogate, evaluation of patient's response to treatment, examination of patient, ordering and performing treatments and interventions, ordering and review of laboratory studies, re- evaluation of patient's condition, ordering and review of radiographic studies and review of old charts Discharge - Discharge Clinical Impression: Lesion of spleen Diabetes Qualifiers: Diabetes mellitus type: type 2 Diabetes mellitus mcfp insulin use: without mcfp use Diabetes mellitus complication status: with other specified complication Qualified Code(s): E11.69 - Type 2 diabetes mellitus with other specified complication Cirrhosis Qualifiers: Hepatic cirrhosis type: other cirrhosis Qualified Code(s): K74.69 - Other cirrhosis of liver Ascites Qualifiers: Ascites type: other type Qualified Code(s): R18.8 - Other ascites Condition: Fair Disposition: ADMITTED OBSERVATION Admitting Provider: Steven (Hospitalist) Unit Admitted: Telemetry
[2020-03-05 22:19] LABS: APPEARANCE,URINE CLEAR; BILIRUBIN,URINE NEGATIVE (NEGATIVE); COLOR,URINE AMBER; GLUCOSE, URINE NEGATIVE (NEGATIVE); KETONES,URINE NEGATIVE (NEGATIVE); PROTEIN,URINE 30 mg/dL (NEGATIVE); URINE SPECIFIC GRAVITY 1.021
[2020-03-05] MEDS ORDERED: DEXTROSE 5%-1/2 NORMAL SALINE 1,000 ML IV ONE (22:19)
[2020-03-05] MEDS ORDERED: DEXTROSE 10%-WATER 1,000 ML IV ONE (23:49)
[2020-03-05] MEDS: DEXTROSE 10%-WATER 1,000 ML IV PRN (23:55)
[2020-03-06 00:05] LABS: INTERNATIONAL RATION (INR) 1.16
[2020-03-06] MEDS ORDERED: ONDANSETRON HCL INJ/PF 4 MG/2 ML SDV IV PRN (00:30)
[2020-03-06] MEDS ORDERED: ACETAMINOPHEN 325 MG TABLET PO PRN (00:30)
[2020-03-06] MEDS ORDERED: MAGNESIUM HYDROXIDE SUSP 30 ML UDCUP PO PRN (00:30)
[2020-03-06] MEDS ORDERED: IPRATROPIUM/ALBUTEROL 0.5-2.5 MG/3 ML AMPUL NEB PRN (00:30)
[2020-03-06] MEDS ORDERED: PROMETHAZINE HCL INJ 25 MG/1 ML VIAL IV PRN (00:30)
--- NOTE | 2020-03-06 01:25 | PDOC H&P ---
History of Present Illness Admission Date/PCP: 03/06/20 00:08 MARCO DAY History of Present Illness: SHARYN PETERS is a 80 year old female past medical history of atrial fibrillation, diabetes, hypertension, unknown malignancy, who was brought to ED by EMS after found by to have recurrent low blood glucose readings on home monitoring. Source of history is who is present in the room. As per who is present in the room stating that he routinely checks her blood sugar every morning, yesterday when he checked her sugar it was running in the 30s, she gave her some chocolate and juices which improved her sugar however she kept having low glucose blood glucose readings, was also noted to be less responsive than her baseline, as per patient has history of some type of malignancy possibly lymphoma diagnosed in [address] Mcgovern received chemotherapy in 2003 since then she gets annual checkup by her oncologist and each time he has been told that she is cancer free, she still have left anterior chest Port-A-Cath but she has not received chemotherapy since 2003, when I asked the why she still have Port-A-Cath is stating that oncologist had told him it does not have to be removed. As per at baseline patient has mild dementia but has very limited mobility due to severe osteoarthritis and left hip fracture also recently she has been noted to have less appetite and does not eat much. She is adherent to her medication and taking [id number] multivitamin denies taking any herbal teas or herbal medication or any new diets, patient is not a drinker or smoker. As per patient has not had any fever, chills, nausea, vomiting, chest pain, shortness of breath, but has had very low appetite, been lethargic lately, has not been having any bowel movement for several days, and has progressively been less responsive. Patient has been is not aware of underlying liver cirrhosis, and is stating that patient is not a drinker. In ED she was noted to have low platelets, T bili, blood, glucose in the 40s, CT head was negative for any acute abnormalities, abdominal CT showed cirrhosis with ascites, splenomegaly with innumerable low-density lesions. Hospitalist was consulted for admission. Past Medical History Cardiac Medical History: Reports: Atrial Fibrillation, Hypertension Denies: Myocardial Infarction Pulmonary Medical History: Denies: Asthma Neurological Medical History: Denies: Seizures GI Medical History: Denies: Hepatitis, Hiatal Hernia Musculoskeltal Medical History: Reports: Arthritis Hematology: Denies: Anemia, Sickle Cell Disease Past Surgical History Past Surgical History: Reports: Cholecystectomy Denies: Amputation, Mastectomy, Pacemaker Social History Smoking Status: Unknown if Ever Smoked Frequency of Alcohol Use: None Drugs: None Family History Family History: Reviewed & Not Pertinent, Hypertension Parental Family History Reviewed: Yes Children Family History Reviewed: Yes Sibling(s) Family History Reviewed.: Yes Medication/Allergy Home Medications: Chlorthalidone [Hygroton 25 mg Tablet] 25 mg PO DAILY 01/20/18 Colchicine [Colchicine 0.6 mg Tablet] 0.6 mg PO DAILY 01/20/18 Diltiazem HCl [Tiazac] 420 mg PO DAILY 01/20/18 Febuxostat [Uloric 80 mg Tablet] 80 mg PO DAILY 01/20/18 Glipizide [Glipizide Xl] 10 mg PO Q12 01/20/18 Metoprolol Succinate [Toprol Xl] 50 mg PO DAILY 01/20/18 Sitagliptin Phosphate [Januvia] 100 mg PO DAILY 01/20/18 Torsemide 100 mg PO DAILY 01/20/18 Alprazolam [Xanax 0.5 mg Tablet] 0.5 mg PO DAILYP PRN #7 tablet 01/23/18 Potassium Chloride 20 meq PO BID #0 01/23/18 Besifloxacin HCl [Besivance 0.6% Oph Susp 5 ml] 1 drop OP TID 08/05/19 Bromfenac Sodium [Prolensa] 1 ml OP DAILY 08/05/19 Difluprednate [Durezol] 5 ml OP DAILY 08/05/19 Amlodipine Besylate [Norvasc 2.5 mg Tablet] 2.5 mg PO DAILY 08/26/19 Allergies/Adverse Reactions: Kvnbrlo-Wcc-Lvf Reductase Inhibitor Adverse Reaction (Verified 03/05/20 19:15) Review of Systems ROS unobtainable: Due to mental status Physical Exam Vital Signs: Temp Pulse Resp BP Pulse Ox 26 H 177/84 H 100 03/06/20 00:01 03/06/20 00:00 03/06/20 00:01 Intake & Output 03/04/20 03/05/20 03/06/20 06:59 06:59 06:59 Intake Total 173 Balance 173 Weight 113.398 kg General appearance: PRESENT: no acute distress, morbidly obese, other - Somnolent but easily arousable, follows command but easily falls asleep. Head exam: PRESENT: atraumatic, normocephalic Respiratory exam: PRESENT: clear to auscultation minerva. ABSENT: rales, rhonchi, wheezes Cardiovascular exam: PRESENT: RRR. ABSENT: diastolic murmur, rubs, systolic murmur GI/Abdominal exam: PRESENT: ascites, distended, hypoactive bowel sounds, normal bowel sounds, soft. ABSENT: guarding, mass, organolmegaly, rebound, tenderness Extremities exam: PRESENT: full ROM, other - Bilateral lower extremity stasis dermatitis. ABSENT: calf tenderness, clubbing, pedal edema Neurological exam: PRESENT: altered, oriented to person, oriented to place, CN II-XII grossly intact. ABSENT: motor sensory deficit Results Laboratory Results: 03/05/20 18:56 03/05/20 18:56 03/05/20 03/05/20 03/05/20 18:56 18:56 18:56 WBC 8.0 RBC 3.32 L Hgb 10.3 L Hct 30.2 L MCV 91 MCH 31.0 MCHC 34.1 RDW 18.3 H Plt Count 132 L Seg Neutrophils % Not Reportable Sodium 134.1 L Potassium 3.4 L Chloride 101 Carbon Dioxide 30 Anion Gap 3 L BUN 35 H Creatinine 1.16 Est GFR ( Amer) 54 L Glucose 147 H Calcium 8.2 L Magnesium 2.4 H Total Bilirubin 1.9 H AST 68 H Alkaline Phosphatase 303 H Total Protein 5.7 L Albumin 2.2 L Urine Color Urine Appearance Urine pH Ur Specific [place] Urine Protein Urine Glucose (UA) Urine Ketones Urine Blood Urine RBC (Auto) 03/05/20 21:52 WBC RBC Hgb Hct MCV MCH MCHC RDW Plt Count Seg Neutrophils % Sodium Potassium Chloride Carbon Dioxide Anion Gap BUN Creatinine Est GFR ( Amer) Glucose Calcium Magnesium Total Bilirubin AST Alkaline Phosphatase Total Protein Albumin Urine Color CALLUM Urine Appearance CLEAR Urine pH 5.0 Ur Specific [place] 1.021 Urine Protein 30 H Urine Glucose (UA) NEGATIVE Urine Ketones NEGATIVE Urine Blood NEGATIVE Urine RBC (Auto) 1 03/05/20 18:56 Troponin I 0.023 Impressions: Head CT 03/05/20 18:57 IMPRESSION: Involutional changes with mild chronic microvascular ischemia. EVIDENCE OF ACUTE STROKE: NO. Abdomen/Pelvis CT 03/05/20 18:58 IMPRESSION: Cirrhosis with ascites. Splenomegaly, with innumerable low-density lesions throughout the spleen. Diagnostic possibilities include metastatic disease, lymphoma, sarcoidosis and an infectious process. Other findings as described. Assessment and Plan - Diagnosis (1) Hypoglycemia Is this a current diagnosis for this admission?: Yes Plan: Multifactorial. This is likely due to combination of low appetite, overtreatment of underlying diabetes, liver cirrhosis and possibly lymphoma. If indicated further imaging studies could be done to rule out insulinoma. Very unlikely to be unlikely factitious hypoglycemia as patient denies taking any [id number]-[id number] medications or insulin administration. Hemoglobin 4.6% which is extremely low given patient's age and comorbidities. Given patient's age and comorbidities hemoglobin A1c goal should be 7 to 8%. Hold antidiabetics. Continue D10 with hypoglycemia protocol and frequent snacking. (2) Acute metabolic encephalopathy Is this a current diagnosis for this admission?: Yes Plan: Multifactorial likely due to underlying hypoglycemia and cirrhosis. At baseline patient has mild dementia that has been progressive lately less responsive recently. CT head negative for any acute abnormalities. Pending ammonia level. Continue treating underlying hypoglycemia. If ammonia level elevated will start on lactulose titrating with to 3 soft bowel movements per day. (3) Atrial fibrillation Qualifiers: Atrial fibrillation type: longstanding persistent Qualified Code(s): I48.11 - Longstanding persistent atrial fibrillation Is this a current diagnosis for this admission?: Yes Plan: History of chronic persistent atrial fibrillation. Rate controlled. Not on chronic anticoagulation. Continue Cardizem. Continue telemetry. Outpatient PCP and cardiology follow-up. (4) Malignancy Is this a current diagnosis for this admission?: Yes Plan: History of unknown malignancy. Likely lymphoma as per but he is not too sure. Diagnosed in 2002, received chemotherapy in 2003, has been cancer free since then. However patient still has Port-A-Cath and left anterior chest even though she is not receiving any chemotherapy. As per patient is and will evaluated by oncologist and they have been told that he has been cancer free. CT abdomen positive for liver cirrhosis and splenomegaly with innumerable lesions. We will consult oncology. (5) Cirrhosis Qualifiers: Hepatic cirrhosis type: other cirrhosis Qualified Code(s): K74.69 - Other cirrhosis of liver Is this a current diagnosis for this admission?: Yes Plan: Denies any history of EtOH abuse. Presented with elevated T bili, alkaline phosphatase and thrombocytopenia. PT/INR WNL. Moderate ascites on physical examination and imaging. Follow-up hepatitis panel. Follow-up ammonia level. Monitor for bleeding. (6) HLD (hyperlipidemia) Is this a current diagnosis for this admission?: Yes Plan: Resume home meds. (7) HTN (hypertension) Is this a current diagnosis for this admission?: Yes Plan: Resume meds. Adjust meds as needed. - Time Time Spent with patient: 35 or more minutes Anticipated Discharge Disposition: Home with Home Health Anticipated Discharge Timeframe: within 72 hours
[2020-03-06] MEDS ORDERED: DEXTROSE 40% GEL 15 GM TUBE PO PRN ×2 (01:27)
[2020-03-06] MEDS ORDERED: DEXTROSE 50%-WATER 25 GM/50 ML DISP.SYRIN IV PRN ×2 (01:27)
[2020-03-06] MEDS ORDERED: GLUCAGON,HUMAN RECOMB 1 MG INJ IM PRN (01:27)
--- NOTE | 2020-03-06 01:33 | ADVANCED CARE ---
- Diagnosis (1) Hypoglycemia Diagnosis Current: Yes (2) Acute metabolic encephalopathy Diagnosis Current: Yes (3) Atrial fibrillation Diagnosis Current: Yes (4) Malignancy Diagnosis Current: Yes (5) Cirrhosis Diagnosis Current: Yes (6) HLD (hyperlipidemia) Diagnosis Current: Yes (7) HTN (hypertension) Diagnosis Current: Yes Resuscitation Status: Do Not Resuscitate Discussion: As per who is present in the room they have discussed her CODE STATUS is in the past and they are both DNR/DNI. As per request patient's code will be transitioned to DNR/DNI. Patient herself too somnolent to provide any input about her CODE STATUS. Care Planning Goals: DNR/DNI Time Spent: 20
[2020-03-06] MEDS: LACTULOSE SYRUP 20 GM/30 ML UDCUP PO SCH ×3 (04:01→18:30)
[2020-03-06] MEDS: CEFTRIAXONE 1 GM/D5W RTU 1 GM/50 ML RTUPB IV SCH ×2 (04:03→11:12)
[2020-03-06] MEDS: DEXTROSE 10%-WATER 1,000 ML IV PRN (06:42)
[2020-03-06] MEDS: INSULIN LISPRO 100 UNIT/ML 3 ML VIAL SUBCUT SCH ×4 (07:20→23:41)
--- NOTE | 2020-03-06 08:36 | EKG REPORT ---
SEVERITY:- ABNORMAL ECG - SINUS OR ECTOPIC ATRIAL RHYTHM LEFT VENTRICULAR HYPERTROPHY BORDERLINE ST ELEVATION, INFERIOR LEADS, CLINICAL CORRELATION NEEDED : Confirmed by: Garland Shabazz MD 06-Mar-2020 08:35:03
--- NOTE | 2020-03-06 10:54 | PDOC CONSULTATION ---
Consultation Consult Date: 03/06/20 Attending physician:: JOHN SPRING Provider Consulted: PHILL DAVE Consult reason:: Patient with history of lymphoma, here with splenic lesion History of Present Illness Admission Date/PCP: 03/06/20 00:08 MARCO DAY Patient complains of: Confusion, weakness History of Present Illness: SHARYN PETERS is a 80 year old female with known history of lymphoma, but also cirrhosis and confusion and weakness. Upon presentation she seems encephalopathic. This is continued but today she does wake up and answer some questions. She remembers having a lymphoma diagnosed in 2005, being treated by Dr. Mcgovern with chemotherapy. Per notes, port has been kept in since then. But most recent office visit revealed that there is no evidence of disease per admission history. The patient herself does not remember much about this. She also does not remember how long she was confused. Reviewed imaging, CT of the abdomen pelvis indicate cirrhosis but also multiple low-density splenic lesions. No malignant appearing adenopathy. Past Medical History Cardiac Medical History: Reports: Atrial Fibrillation, Hypertension Denies: Myocardial Infarction Pulmonary Medical History: Denies: Asthma Neurological Medical History: Denies: Seizures Malignancy Medical History: Reports: Lymphoma GI Medical History: Denies: Hepatitis, Hiatal Hernia Musculoskeltal Medical History: Reports: Arthritis Psychiatric Medical History: Denies: Depression Hematology: Denies: Anemia, Sickle Cell Disease Past Surgical History Past Surgical History: Reports: Cholecystectomy Denies: Amputation, Mastectomy, Pacemaker Social History Information Source: Patient, [facility] Records Smoking Status: Unknown if Ever Smoked Frequency of Alcohol Use: None Drugs: None - Advance Directive Resuscitation Status: DNR/DNI Family History Family History: Reviewed & Not Pertinent, Hypertension Parental Family History Reviewed: Yes Children Family History Reviewed: Yes Sibling(s) Family History Reviewed.: Yes Medication/Allergy Home Medications: Chlorthalidone [Hygroton 25 mg Tablet] 25 mg PO DAILY 01/20/18 Colchicine [Colchicine 0.6 mg Tablet] 0.6 mg PO DAILY 01/20/18 Diltiazem HCl [Tiazac] 420 mg PO DAILY 01/20/18 Febuxostat [Uloric 80 mg Tablet] 80 mg PO DAILY 01/20/18 Glipizide [Glipizide Xl] 10 mg PO Q12 01/20/18 Metoprolol Succinate [Toprol Xl] 50 mg PO DAILY 01/20/18 Sitagliptin Phosphate [Januvia] 100 mg PO DAILY 01/20/18 Torsemide 100 mg PO DAILY 01/20/18 Alprazolam [Xanax 0.5 mg Tablet] 0.5 mg PO DAILYP PRN #7 tablet 01/23/18 Potassium Chloride 20 meq PO BID #0 01/23/18 Besifloxacin HCl [Besivance 0.6% Oph Susp 5 ml] 1 drop OP TID 08/05/19 Bromfenac Sodium [Prolensa] 1 ml OP DAILY 08/05/19 Difluprednate [Durezol] 5 ml OP DAILY 08/05/19 Amlodipine Besylate [Norvasc 2.5 mg Tablet] 2.5 mg PO DAILY 08/26/19 Allergies/Adverse Reactions: Asllksv-Ejq-Bpx Reductase Inhibitor Adverse Reaction (Verified 03/05/20 19:15) Review of Systems Constitutional: ABSENT: chills, fever(s), headache(s), weight gain, weight loss Eyes: ABSENT: visual disturbances Ears: ABSENT: hearing changes Cardiovascular: ABSENT: chest pain, dyspnea on exertion, edema, orthropnea, palpitations Respiratory: ABSENT: cough, hemoptysis Gastrointestinal: ABSENT: abdominal pain, constipation, diarrhea, hematemesis, hematochezia, nausea, vomiting Genitourinary: ABSENT: dysuria, hematuria Musculoskeletal: ABSENT: joint swelling Integumentary: ABSENT: rash, wounds Neurological: ABSENT: abnormal gait, abnormal speech, confusion, dizziness, focal weakness, syncope Psychiatric: ABSENT: anxiety, depression, homidical ideation, suicidal ideation Endocrine: ABSENT: cold intolerance, heat intolerance, polydipsia, polyuria Hematologic/Lymphatic: ABSENT: easy bleeding, easy bruising Physical Exam Vital Signs: Temp Pulse Resp BP Pulse Ox 97.8 F 79 22 H 156/71 H 96 03/06/20 07:49 03/06/20 07:49 03/06/20 07:49 03/06/20 07:49 03/06/20 07:49 Intake & Output 03/05/20 03/06/20 03/07/20 06:59 06:59 06:59 Intake Total 223 Output Total 175 Balance 48 Weight 113.3 kg General appearance: PRESENT: no acute distress, well-developed, well-nourished Head exam: PRESENT: atraumatic, normocephalic Eye exam: PRESENT: conjunctiva pink, EOMI, PERRLA. ABSENT: scleral icterus Ear exam: PRESENT: normal external ear exam Mouth exam: PRESENT: moist, tongue midline Neck exam: ABSENT: carotid bruit, JVD, lymphadenopathy, thyromegaly Respiratory exam: PRESENT: clear to auscultation minerva. ABSENT: rales, rhonchi, wheezes Cardiovascular exam: PRESENT: RRR. ABSENT: diastolic murmur, rubs, systolic murmur Pulses: PRESENT: normal dorsalis pedis pul Vascular exam: PRESENT: normal capillary refill GI/Abdominal exam: PRESENT: normal bowel sounds, soft. ABSENT: distended, guarding, mass, organolmegaly, rebound, tenderness Rectal exam: PRESENT: deferred Extremities exam: PRESENT: full ROM. ABSENT: calf tenderness, clubbing, pedal edema Neurological exam: PRESENT: alert, awake, oriented to person, oriented to place, oriented to time, oriented to situation, CN II-XII grossly intact. ABSENT: motor sensory deficit Psychiatric exam: PRESENT: appropriate affect, normal mood. ABSENT: homicidal ideation, suicidal ideation Skin exam: PRESENT: dry, intact, warm. ABSENT: cyanosis, rash Results Laboratory Results: 03/05/20 18:56 03/05/20 18:56 03/05/20 03/05/20 03/05/20 18:56 18:56 18:56 WBC 8.0 RBC 3.32 L Hgb 10.3 L Hct 30.2 L MCV 91 MCH 31.0 MCHC 34.1 RDW 18.3 H Plt Count 132 L Seg Neutrophils % Not Reportable Sodium 134.1 L Potassium 3.4 L Chloride 101 Carbon Dioxide 30 Anion Gap 3 L BUN 35 H Creatinine 1.16 Est GFR ( Amer) 54 L Glucose 147 H Calcium 8.2 L Magnesium 2.4 H Total Bilirubin 1.9 H AST 68 H Alkaline Phosphatase 303 H Ammonia Total Protein 5.7 L Albumin 2.2 L Urine Color Urine Appearance Urine pH Ur Specific [place] Urine Protein Urine Glucose (UA) Urine Ketones Urine Blood Urine RBC (Auto) 03/05/20 03/06/20 21:52 00:05 WBC RBC Hgb Hct MCV MCH MCHC RDW Plt Count Seg Neutrophils % Sodium Potassium Chloride Carbon Dioxide Anion Gap BUN Creatinine Est GFR ( Amer) Glucose Calcium Magnesium Total Bilirubin AST Alkaline Phosphatase Ammonia 23.3 Total Protein Albumin Urine Color CALLUM Urine Appearance CLEAR Urine pH 5.0 Ur Specific [place] 1.021 Urine Protein 30 H Urine Glucose (UA) NEGATIVE Urine Ketones NEGATIVE Urine Blood NEGATIVE Urine RBC (Auto) 1 03/05/20 18:56 Troponin I 0.023 Impressions: Head CT 03/05/20 18:57 IMPRESSION: Involutional changes with mild chronic microvascular ischemia. EVIDENCE OF ACUTE STROKE: NO. Abdomen/Pelvis CT 03/05/20 18:58 IMPRESSION: Cirrhosis with ascites. Splenomegaly, with innumerable low-density lesions throughout the spleen. Diagnostic possibilities include metastatic disease, lymphoma, sarcoidosis and an infectious process. Other findings as described. Assessment & Plan - Diagnosis (1) Lesion of spleen Is this a current diagnosis for this admission?: Yes Plan: Unknown cause at present, I do not believe this is causing any of her current presentation. Much more likely to be hepatic encephalopathy from known cirrhosis. This can be followed up as an outpatient. Probably would benefit from some sort of PET/CT as an outpatient. LDH is normal counts are normal and there is no other malignant adenopathy noted on scans, so I believe recurrence of previous lymphoma would be unlikely. (2) Lymphoma Qualifiers: Lymphoma type: unspecified type Lymphoma site: unspecified region Qualified Code(s): C85.90 - Non-Hodgkin lymphoma, unspecified, unspecified site Is this a current diagnosis for this admission?: Yes Plan: Per previous notes, it seems to be remote history of lymphoma. Sounds like she did receive chemotherapy for this, she recollects 2005 but previous notes note 2002. Regardless, this is a very remote history, probably lymphoma that has been potentially cured. Even if it was a follicular lymphoma, it does not seem that there is recurrence of this now. - Time Time Spent: Greater than 70 Minutes
[2020-03-06] MEDS: SPIRONOLACTONE 25 MG TABLET PO SCH ×2 (11:08→21:42)
[2020-03-06] MEDS: FUROSEMIDE 40 MG TABLET PO SCH ×2 (11:08→18:29)
[2020-03-06] MEDS: FAMOTIDINE 20 MG TABLET PO SCH ×2 (11:08→21:43)
[2020-03-06] MEDS: DILTIAZEM HCL 120 MG CAP.SR.24H PO SCH ×2 (11:09→21:42)
[2020-03-06] MEDS: DOCUSATE SODIUM 100 MG CAPSULE PO SCH ×2 (11:09→18:30)
[2020-03-06 11:39] LABS: ALBUMIN 2.4 g/dL (3.5-5.0); ALKALINE PHOSPHATASE 269 U/L (38-126); ANION GAP 7 (5-19); ASPARTATE AMINO TRANSFERASE 76 U/L (14-36); BILIRUBIN,DIRECT 1.1 mg/dL (0.0-0.4); BILIRUBIN,TOTAL 1.8 mg/dL (0.2-1.3); BLOOD UREA NITROGEN 34 mg/dL (7-20); CALCIUM 8.4 mg/dL (8.4-10.2); CARBON DIOXIDE 24 mmol/L (22-30); CHLORIDE 103 mmol/L (98-107); POTASSIUM 3.8 mmol/L (3.6-5.0)
[2020-03-06 11:48] LABS: GLUCOSE 43 mg/dL (75-110)
[2020-03-06] MEDS: HEPARIN SOD (PORCINE) 5,000 UNIT/ML 1 ML VIAL SUBCUT SCH ×2 (15:20→21:43)
[2020-03-07] MEDS ORDERED: METOPROLOL TARTRATE PF/INJ 5 MG/5 ML SDV IV PRN (01:09)
[2020-03-07] MEDS: HEPARIN SOD (PORCINE) 5,000 UNIT/ML 1 ML VIAL SUBCUT SCH ×3 (05:01→21:04)
[2020-03-07] MEDS ORDERED: DIGOXIN INJ 0.5 MG/2 ML AMPULE IV ONE ×2 (06:00→07:47)
[2020-03-07] MEDS ORDERED: ALPRAZOLAM 0.5 MG TABLET PO ONE (06:30)
[2020-03-07] MEDS ORDERED: ALPRAZOLAM 0.5 MG TABLET PO PRN (07:48)
[2020-03-07] MEDS: INSULIN LISPRO 100 UNIT/ML 3 ML VIAL SUBCUT SCH ×4 (09:46→23:38)
[2020-03-07] MEDS ORDERED: (PENDING PHARMACY ID) (Metoprolol Succinate [Toprol Xl] 100 MG Tab.Er.24h) PO SCH (10:00)
[2020-03-07] MEDS ORDERED: TORSEMIDE 100 MG PO SCH (10:00)
[2020-03-07] MEDS: SPIRONOLACTONE 25 MG TABLET PO SCH ×2 (10:01→21:04)
[2020-03-07] MEDS: LACTULOSE SYRUP 20 GM/30 ML UDCUP PO SCH ×2 (10:02→17:43)
[2020-03-07] MEDS: CEFTRIAXONE 1 GM/D5W RTU 1 GM/50 ML RTUPB IV SCH (10:02)
[2020-03-07] MEDS: FAMOTIDINE 20 MG TABLET PO SCH ×2 (10:02→21:03)
[2020-03-07] MEDS: FUROSEMIDE 40 MG TABLET PO SCH ×2 (10:02→17:43)
[2020-03-07] MEDS: METOPROLOL SUCCINATE 50 MG TAB.SR.24H PO SCH (10:02)
[2020-03-07] MEDS: DOCUSATE SODIUM 100 MG CAPSULE PO SCH ×2 (10:02→17:43)
[2020-03-07 10:19] LABS: ABSOLUTE EOSINOPHILS # (AUTO) 0.1 10^3/uL (0.0-0.6); ABSOLUTE LYMPHOCYTES (AUTO) 0.7 10^3/uL (0.5-4.7); ABSOLUTE MONOCYTES (AUTO) 0.5 10^3/uL (0.1-1.4); ABSOLUTE NEUT (AUTO) 6.2 10^3/uL (1.7-8.2); BASOPHILS % (AUTO) 0.4 % (0-2); EOSINOPHILS % (AUTO) 0.8 % (0-6); HEMATOCRIT 31.8 % (36.0-47.0); HEMOGLOBIN 10.9 g/dL (12.0-15.5); LYMPHOCYTES % (AUTO) 9.6 % (13-45); MEAN CORPUSCULAR HEMOGLOBIN 31.1 pg (27.0-33.4); MEAN CORPUSCULAR HGB CONC 34.2 g/dL (32.0-36.0); MEAN CORPUSCULAR VOLUME 91 fl (80-97); PLATELET COUNT 152 10^3/uL (150-450); RED CELL DISTRIBUTION WIDTH 18.2 % (11.5-14.0); SEGMENTED NEUTROPHILS % (AUTO) 82.2 % (42-78); TOTAL CELLS COUNTED % (AUTO) 100 %; WHITE BLOOD COUNT 7.6 10^3/uL (4.0-10.5)
[2020-03-07 10:30] LABS: ALBUMIN 2.4 g/dL (3.5-5.0); ALKALINE PHOSPHATASE 288 U/L (38-126); ANION GAP 9 (5-19); ASPARTATE AMINO TRANSFERASE 49 U/L (14-36); BILIRUBIN,DIRECT 0.9 mg/dL (0.0-0.4); BILIRUBIN,TOTAL 1.6 mg/dL (0.2-1.3); BLOOD UREA NITROGEN 34 mg/dL (7-20); CARBON DIOXIDE 23 mmol/L (22-30); CHLORIDE 100 mmol/L (98-107); GLUCOSE 134 mg/dL (75-110); POTASSIUM 3.8 mmol/L (3.6-5.0); TOTAL PROTEIN 5.7 g/dL (6.3-8.2)
[2020-03-07] MEDS ORDERED: VANCOMYCIN HCL 0 MG in DEXTROSE 5%-WATER 250 ML IV NR (14:00)
[2020-03-07 15:36] LABS: HEPATITS B SURFACE ANTIGEN Negative (Negative)
[2020-03-07 17:58] LABS: HEPATITIS C VIRUS ANTIBODY <0.1 s/co ratio (0.0-0.9)
--- NOTE | 2020-03-07 18:02 | PDOC PROGRESS REPORT ---
Subjective Date:: 03/07/20 Subjective:: Patient seen on morning rounds. She is resting in bed, O2 sat >95% on RA. Patient is alert but confused. Her is at bedside. States appears more confused than her baseline but better than yesterday. Confirms history of persistent hypoglycemia and altered mental status [employer]. Patient has been recieving D10 fluids with glucose in 100s. Hold D10. Monitor. Due to patient's dementia she is unable to provide me with review of symptoms. Discussed with nursing. Pt with HR increase into 150s overnight. Successfully treated with digoxin. Home medications on board. HR since WNL. Reason For Visit: HYPOGLYCEMIA,ACUTE METABOLIC ENCEPHALOPATHY Physical Exam Vital Signs: Temp Pulse Resp BP Pulse Ox 97.6 F 82 18 126/59 H 95 03/07/20 11:23 03/07/20 12:01 03/07/20 12:01 03/07/20 11:23 03/07/20 12:01 Intake & Output 03/06/20 03/07/20 03/08/20 06:59 06:59 06:59 Intake Total 223 430 Output Total 175 350 Balance 48 80 Weight 113.3 kg 81.6 kg General appearance: PRESENT: no acute distress, obese, other - Follows commands, but is confused. Head exam: PRESENT: atraumatic, normocephalic Mouth exam: PRESENT: moist Neck exam: PRESENT: full ROM. ABSENT: JVD Respiratory exam: PRESENT: clear to auscultation minerva, unlabored. ABSENT: rhonchi, wheezes Cardiovascular exam: PRESENT: RRR. ABSENT: diastolic murmur, systolic murmur GI/Abdominal exam: PRESENT: ascites, distended, hypoactive bowel sounds, soft. ABSENT: guarding, mass, tenderness Extremities exam: PRESENT: full ROM Musculoskeletal exam: PRESENT: full ROM Neurological exam: PRESENT: awake, oriented to person, oriented to place Skin exam: PRESENT: dry, intact, warm. ABSENT: rash Results Laboratory Results: 03/07/20 09:00 03/07/20 09:00 03/07/20 03/07/20 09:00 09:00 WBC 7.6 RBC 3.50 L Hgb 10.9 L Hct 31.8 L MCV 91 MCH 31.1 MCHC 34.2 RDW 18.2 H Plt Count 152 Seg Neutrophils % 82.2 H Sodium 131.8 L Potassium 3.8 Chloride 100 Carbon Dioxide 23 Anion Gap 9 BUN 34 H Creatinine 1.31 H Est GFR ( Amer) 47 L Glucose 134 H Calcium 9.0 Magnesium 2.4 H Total Bilirubin 1.6 H AST 49 H Alkaline Phosphatase 288 H Total Protein 5.7 L Albumin 2.4 L 03/05/20 21:52 Catheterized Urine Urine Culture - Final Mrsa (Meth Resis Staph Aureus) 03/05/20 18:56 Troponin I 0.023 Impressions: Head CT 03/05/20 18:57 IMPRESSION: Involutional changes with mild chronic microvascular ischemia. EVIDENCE OF ACUTE STROKE: NO. Abdomen/Pelvis CT 03/05/20 18:58 IMPRESSION: Cirrhosis with ascites. Splenomegaly, with innumerable low-density lesions throughout the spleen. Diagnostic possibilities include metastatic disease, lymphoma, sarcoidosis and an infectious process. Other findings as described. Assessment and Plan - Diagnosis (1) UTI (urinary tract infection) Is this a current diagnosis for this admission?: Yes Plan: UA consistent with UTI. Urine culture positive for MRSA. Tx: Vancomycin Blood cultures ordered, pending. (2) Hypoglycemia Is this a current diagnosis for this admission?: Yes Plan: Improved with D10. Hold and monitor. Multifactorial. This is likely due to combination of low appetite, overtreatment of underlying diabetes, liver cirrhosis and possibly lymphoma. Hemoglobin 4.6%. hemoglobin A1c goal should be 7 to 8%. (3) Acute metabolic encephalopathy Is this a current diagnosis for this admission?: Yes Plan: Multifactorial likely due to underlying dementia, hypoglycemia, cirrhosis At baseline patient has mild dementia that has been progressive lately less responsive recently. CT head: without acute Ammonia WNL Hypoglycemia corrected. (4) Atrial fibrillation Qualifiers: Atrial fibrillation type: longstanding persistent Qualified Code(s): I48.11 - Longstanding persistent atrial fibrillation Is this a current diagnosis for this admission?: Yes Plan: History of chronic persistent atrial fibrillation. Rate controlled. Not on chronic anticoagulation. Continue Cardizem. Continue telemetry. Outpatient PCP and cardiology follow-up. (5) Malignancy Is this a current diagnosis for this admission?: Yes Plan: Oncology: Consulted. Note reviewed in detail. Recommends outpatient follow up CT/PET. History of unknown malignancy. Likely lymphoma as per but he is not too sure. Diagnosed in 2002, received chemotherapy in 2003, has been cancer free since then. However patient still has Port-A-Cath and left anterior chest even though she is not receiving any chemotherapy. As per patient is and will evaluated by oncologist and they have been told that he has been cancer free. CT abdomen positive for liver cirrhosis and splenomegaly with innumerable lesions. (6) Cirrhosis Qualifiers: Hepatic cirrhosis type: other cirrhosis Qualified Code(s): K74.69 - Other cirrhosis of liver Is this a current diagnosis for this admission?: Yes Plan: Denies any history of EtOH abuse. Presented with elevated T bili, alkaline phosphatase and thrombocytopenia. PT/INR WNL. Moderate ascites on physical examination and imaging. Follow-up hepatitis panel. Follow-up ammonia level. Monitor for bleeding. (7) HLD (hyperlipidemia) Is this a current diagnosis for this admission?: Yes Plan: Resume home meds. (8) HTN (hypertension) Is this a current diagnosis for this admission?: Yes Plan: Resume meds. Adjust meds as needed. (9) Acute kidney injury Is this a current diagnosis for this admission?: Yes Plan: BUN 31, Cr 1.31. Likely 2/2 fluids. Hold D10 at this time. Monitor on morning labs. - Time Time Spent with patient: 25-34 minutes Medications reviewed and adjusted accordingly: Yes Anticipated Discharge Disposition: Home with Home Health Anticipated Discharge Timeframe: within 48 hours
[2020-03-07] MEDS: VANCOMYCIN HCL 750 MG in DEXTROSE 5%-WATER 250 ML IV SCH (19:52)
[2020-03-08 05:42] LABS: ANION GAP 5 (5-19); BLOOD UREA NITROGEN 38 mg/dL (7-20); CALCIUM 8.9 mg/dL (8.4-10.2); CARBON DIOXIDE 25 mmol/L (22-30); CHLORIDE 103 mmol/L (98-107); GLUCOSE 115 mg/dL (75-110); POTASSIUM 3.6 mmol/L (3.6-5.0)
[2020-03-08] MEDS: HEPARIN SOD (PORCINE) 5,000 UNIT/ML 1 ML VIAL SUBCUT SCH ×3 (06:02→21:41)
[2020-03-08] MEDS: INSULIN LISPRO 100 UNIT/ML 3 ML VIAL SUBCUT SCH ×3 (06:02→18:14)
[2020-03-08 06:38] LABS: HEMATOCRIT 26.5 % (36.0-47.0); HEMOGLOBIN 9.2 g/dL (12.0-15.5); MEAN CORPUSCULAR HEMOGLOBIN 31.2 pg (27.0-33.4); MEAN CORPUSCULAR HGB CONC 34.7 g/dL (32.0-36.0); MEAN CORPUSCULAR VOLUME 90 fl (80-97); PLATELET COUNT 158 10^3/uL (150-450); RED BLOOD COUNT 2.95 10^6/uL (3.72-5.28); RED CELL DISTRIBUTION WIDTH 18.4 % (11.5-14.0); WHITE BLOOD COUNT 5.7 10^3/uL (4.0-10.5)
--- NOTE | 2020-03-08 08:36 | PDOC PROGRESS REPORT ---
Subjective Date:: 03/08/20 Subjective:: Patient currently unresponsive to voice or tactile stimulus. She appears to be using accessory muscles to breath, but her vitals remain good. No family at bedside. Reason For Visit: HYPOGLYCEMIA,ACUTE METABOLIC ENCEPHALOPATHY Physical Exam Vital Signs: Temp Pulse Resp BP Pulse Ox 97.6 F 73 22 H 157/49 H 87 L 03/08/20 05:58 03/08/20 05:58 03/08/20 05:58 03/08/20 05:58 03/08/20 05:58 Intake & Output 03/07/20 03/08/20 03/09/20 06:59 06:59 06:59 Intake Total 430 300 Output Total 350 325 Balance 80 -25 Weight 81.6 kg 86.7 kg General appearance: PRESENT: obese Head exam: PRESENT: normocephalic Respiratory exam: PRESENT: accessory muscle use, clear to auscultation minerva Cardiovascular exam: PRESENT: RRR GI/Abdominal exam: PRESENT: soft. ABSENT: organolmegaly Extremities exam: PRESENT: +1 edema Neurological exam: PRESENT: altered Skin exam: PRESENT: normal color Results Laboratory Results: 03/08/20 06:22 03/08/20 04:30 03/07/20 03/07/20 03/08/20 09:00 09:00 04:30 WBC 7.6 Cancelled RBC 3.50 L Cancelled Hgb 10.9 L Cancelled Hct 31.8 L Cancelled MCV 91 Cancelled MCH 31.1 Cancelled MCHC 34.2 Cancelled RDW 18.2 H Cancelled Plt Count 152 Cancelled Seg Neutrophils % 82.2 H Sodium 131.8 L Potassium 3.8 Chloride 100 Carbon Dioxide 23 Anion Gap 9 BUN 34 H Creatinine 1.31 H Est GFR ( Amer) 47 L Glucose 134 H Calcium 9.0 Magnesium 2.4 H Total Bilirubin 1.6 H AST 49 H Alkaline Phosphatase 288 H Total Protein 5.7 L Albumin 2.4 L 03/08/20 03/08/20 04:30 06:22 WBC 5.7 RBC 2.95 L Hgb 9.2 L Hct 26.5 L MCV 90 MCH 31.2 MCHC 34.7 RDW 18.4 H Plt Count 158 Seg Neutrophils % Sodium 133.1 L Potassium 3.6 Chloride 103 Carbon Dioxide 25 Anion Gap 5 BUN 38 H Creatinine 1.59 H Est GFR ( Amer) 38 L Glucose 115 H Calcium 8.9 Magnesium Total Bilirubin AST Alkaline Phosphatase Total Protein Albumin 03/05/20 21:52 Catheterized Urine Urine Culture - Final Mrsa (Meth Resis Staph Aureus) 03/05/20 18:56 Troponin I 0.023 Impressions: Head CT 03/05/20 18:57 IMPRESSION: Involutional changes with mild chronic microvascular ischemia. EVIDENCE OF ACUTE STROKE: NO. Abdomen/Pelvis CT 03/05/20 18:58 IMPRESSION: Cirrhosis with ascites. Splenomegaly, with innumerable low-density lesions throughout the spleen. Diagnostic possibilities include metastatic disease, lymphoma, sarcoidosis and an infectious process. Other findings as described. Assessment & Plan - Diagnosis (1) Acute metabolic encephalopathy Is this a current diagnosis for this admission?: Yes Plan: Her ammonia was normal. Na has been decreased, but is stable. Her Cr is slowly rising. Her LFTs are stable and mildly elevated. No recent episodes of hypoglycemia noted. I am not sure what is causing this, however, I would HOLD t he xanax as this is most likely cause currently, with impaired liver function. (2) Lesion of spleen Is this a current diagnosis for this admission?: Yes Plan: Would need old films for comparison to see if these are new lesions or not. No evidence of lymphoma recurrence at this point. - Time Time Spent with patient: Less than 15 minutes
[2020-03-08] MEDS: DOCUSATE SODIUM 100 MG CAPSULE PO SCH (09:08)
[2020-03-08] MEDS: FAMOTIDINE 20 MG TABLET PO SCH (09:08)
[2020-03-08] MEDS: SPIRONOLACTONE 25 MG TABLET PO SCH ×2 (09:08→21:41)
[2020-03-08] MEDS: METOPROLOL SUCCINATE 50 MG TAB.SR.24H PO SCH (09:08)
[2020-03-08] MEDS: LACTULOSE SYRUP 20 GM/30 ML UDCUP PO SCH (09:08)
[2020-03-08] MEDS: FUROSEMIDE 40 MG TABLET PO SCH ×2 (09:08→17:53)
[2020-03-08] MEDS ORDERED: PROMETHAZINE HCL INJ 25 MG/1 ML VIAL IV PRN (15:00)
[2020-03-08] MEDS ORDERED: ONDANSETRON HCL INJ/PF 4 MG/2 ML SDV IV PRN (15:00)
--- NOTE | 2020-03-08 17:21 | ADVANCED CARE ---
- Diagnosis (1) UTI (urinary tract infection) Diagnosis Current: Yes (2) Hypoglycemia Diagnosis Current: Yes (3) Acute metabolic encephalopathy Diagnosis Current: Yes (4) Atrial fibrillation Diagnosis Current: Yes (5) Malignancy Diagnosis Current: Yes (6) Cirrhosis Diagnosis Current: Yes (7) HLD (hyperlipidemia) Diagnosis Current: Yes (8) HTN (hypertension) Diagnosis Current: Yes (9) Acute kidney injury Diagnosis Current: Yes Attendance: Discussion was held at the bedside with the patient as well as the patient's who acts as POA. Resuscitation Status: DNR/DNI Discussion: Patient's current code status is DRN/DNI. This discussion was focused on making sure that everyone understood the concept of home health verses home hospice verses comfort measures or less aggressive care. We reviewed each available resource in detail. Patient's and POA states that he is interested in receiving more information on home hospice services at this time. Care Planning Goals: Interested in pursuing home hospice. Document(s) Completed: None. Time Spent: 35
[2020-03-08] MEDS: VANCOMYCIN HCL 750 MG in DEXTROSE 5%-WATER 250 ML IV SCH (17:44)
--- NOTE | 2020-03-08 18:38 | PDOC PROGRESS REPORT ---
Subjective Date:: 03/08/20 Subjective:: Patient seen on morning rounds. She is resting in bed, O2 sat >95% on RA. Patient is alert but confused. Her is at bedside. Tells me that patient closer to baseline at this time. Patient's hypoglycemia has resolved. Goals of care conversation held between patient's and myself, refer to ACP note. Due to patient's dementia she is unable to provide me with review of symptoms. No concerns per nursing. Reason For Visit: HYPOGLYCEMIA,ACUTE METABOLIC ENCEPHALOPATHY Physical Exam Vital Signs: Temp Pulse Resp BP Pulse Ox 97.6 F 74 24 H 132/57 H 91 L 03/08/20 15:20 03/08/20 15:20 03/08/20 15:20 03/08/20 15:20 03/08/20 15:20 Intake & Output 03/07/20 03/08/20 03/09/20 06:59 06:59 06:59 Intake Total 430 300 120 Output Total 350 325 Balance 80 -25 120 Weight 81.6 kg 86.7 kg Additional comments: General appearance: PRESENT: no acute distress, obese, other - Follows commands, but is confused. Head exam: PRESENT: atraumatic, normocephalic Mouth exam: PRESENT: moist Neck exam: PRESENT: full ROM. ABSENT: JVD Respiratory exam: PRESENT: clear to auscultation minerva, unlabored. ABSENT: rhonchi, wheezes Cardiovascular exam: PRESENT: RRR. ABSENT: diastolic murmur, systolic murmur GI/Abdominal exam: PRESENT: ascites, distended, hypoactive bowel sounds, soft. ABSENT: guarding, mass, tenderness Extremities exam: PRESENT: full ROM Musculoskeletal exam: PRESENT: full ROM Neurological exam: PRESENT: awake, oriented to person, oriented to place Skin exam: PRESENT: dry, intact, warm. ABSENT: rash Results Laboratory Results: 03/08/20 06:22 03/08/20 04:30 03/08/20 03/08/20 03/08/20 04:30 04:30 06:22 WBC Cancelled 5.7 RBC Cancelled 2.95 L Hgb Cancelled 9.2 L Hct Cancelled 26.5 L MCV Cancelled 90 MCH Cancelled 31.2 MCHC Cancelled 34.7 RDW Cancelled 18.4 H Plt Count Cancelled 158 Sodium 133.1 L Potassium 3.6 Chloride 103 Carbon Dioxide 25 Anion Gap 5 BUN 38 H Creatinine 1.59 H Est GFR ( Amer) 38 L Glucose 115 H Calcium 8.9 03/05/20 18:56 Troponin I 0.023 Impressions: Head CT 03/05/20 18:57 IMPRESSION: Involutional changes with mild chronic microvascular ischemia. EVIDENCE OF ACUTE STROKE: NO. Abdomen/Pelvis CT 03/05/20 18:58 IMPRESSION: Cirrhosis with ascites. Splenomegaly, with innumerable low-density lesions throughout the spleen. Diagnostic possibilities include metastatic disease, lymphoma, sarcoidosis and an infectious process. Other findings as described. Assessment and Plan - Diagnosis (1) UTI (urinary tract infection) Is this a current diagnosis for this admission?: Yes Plan: UA consistent with UTI. Urine culture positive for MRSA. Tx: Vancomycin, dosing per pharmacy. WGTD. (2) Hypoglycemia Is this a current diagnosis for this admission?: Yes Plan: Improved with D10. Hold and monitor. Multifactorial. This is likely due to combination of low appetite, overtreatment of underlying diabetes, liver cirrhosis and possibly lymphoma. Hemoglobin 4.6%. hemoglobin A1c goal should be 7 to 8%. (3) Acute metabolic encephalopathy Is this a current diagnosis for this admission?: Yes Plan: Multifactorial likely due to underlying dementia, hypoglycemia, cirrhosis. At baseline patient has mild dementia that has been progressive lately less responsive recently. CT head: without acute Ammonia WNL Hypoglycemia corrected. (4) Atrial fibrillation Qualifiers: Atrial fibrillation type: longstanding persistent Qualified Code(s): I48.11 - Longstanding persistent atrial fibrillation Is this a current diagnosis for this admission?: Yes Plan: History of chronic persistent atrial fibrillation. Rate controlled. Not on chronic anticoagulation. Continue Cardizem. Continue telemetry. Outpatient PCP and cardiology follow-up. (5) Malignancy Is this a current diagnosis for this admission?: Yes Plan: Oncology: Consulted. Note reviewed in detail. Recommends outpatient follow up CT/PET. History of unknown malignancy. Likely lymphoma as per but he is not too sure. Diagnosed in 2002, received chemotherapy in 2003, has been cancer free since then. However patient still has Port-A-Cath and left anterior chest even though she is not receiving any chemotherapy. As per patient is and will evaluated by oncologist and they have been told that he has been cancer free. CT abdomen positive for liver cirrhosis and splenomegaly with innumerable lesions. (6) Cirrhosis Qualifiers: Hepatic cirrhosis type: other cirrhosis Qualified Code(s): K74.69 - Other cirrhosis of liver Is this a current diagnosis for this admission?: Yes Plan: Denies any history of EtOH abuse. Presented with elevated T bili, alkaline phosphatase and thrombocytopenia. PT/INR WNL. Moderate ascites on physical examination and imaging. Hepatitis panel negative. Ammonia WNL. Monitor for bleeding. (7) HLD (hyperlipidemia) Is this a current diagnosis for this admission?: Yes Plan: Resume home meds. (8) HTN (hypertension) Is this a current diagnosis for this admission?: Yes Plan: Resume meds. Adjust meds as needed. (9) Acute kidney injury Is this a current diagnosis for this admission?: Yes Plan: BUN 38, Cr 1.59. Potentially 2/2 fluid overload. Iv lasix x1 dose. Pharmacy contacted regarding vanc. Continue to monitor kidney function closely. Monitor on morning labs. - Time Time Spent with patient: 35 or more minutes Medications reviewed and adjusted accordingly: Yes Anticipated Discharge Disposition: Home with Hospice Anticipated Discharge Timeframe: within 24 hours
[2020-03-09] MEDS: INSULIN LISPRO 100 UNIT/ML 3 ML VIAL SUBCUT SCH ×4 (00:59→18:22)
[2020-03-09 05:56] LABS: HEMATOCRIT 26.5 % (36.0-47.0); HEMOGLOBIN 9.1 g/dL (12.0-15.5); MEAN CORPUSCULAR HEMOGLOBIN 30.9 pg (27.0-33.4); MEAN CORPUSCULAR HGB CONC 34.5 g/dL (32.0-36.0); MEAN CORPUSCULAR VOLUME 90 fl (80-97); RED BLOOD COUNT 2.96 10^6/uL (3.72-5.28); RED CELL DISTRIBUTION WIDTH 17.7 % (11.5-14.0); WHITE BLOOD COUNT 5.2 10^3/uL (4.0-10.5)
[2020-03-09] MEDS: HEPARIN SOD (PORCINE) 5,000 UNIT/ML 1 ML VIAL SUBCUT SCH ×2 (06:12→13:13)
[2020-03-09 06:26] LABS: ANION GAP 5 (5-19); BLOOD UREA NITROGEN 44 mg/dL (7-20); CALCIUM 8.8 mg/dL (8.4-10.2); CARBON DIOXIDE 26 mmol/L (22-30); CHLORIDE 101 mmol/L (98-107); GLUCOSE 103 mg/dL (75-110); POTASSIUM 3.6 mmol/L (3.6-5.0)
[2020-03-09 06:54] LABS: PLATELET COUNT 152 10^3/uL (150-450)
[2020-03-09] MEDS ORDERED: NORMAL SALINE 1000 ML 1,000 ML IV PRN (08:27)
[2020-03-09 09:04] LABS: VANCOMYCIN,TROUGH 11.4 ug/mL (5.0-20.0)
[2020-03-09] MEDS ORDERED: FAMOTIDINE 20 MG TABLET PO SCH (10:00)
[2020-03-09] MEDS: METOPROLOL SUCCINATE 50 MG TAB.SR.24H PO SCH (10:05)
[2020-03-09] MEDS ORDERED: HYDRALAZINE HCL INJ/PF 20 MG/1 ML SDV IV PRN (11:56)
--- NOTE | 2020-03-09 14:04 | PDOC PROGRESS REPORT ---
Subjective Date:: 03/09/20 Subjective:: Patient seen on morning rounds. She is resting in bed, O2 sat >95% on RA. Patient is alert but confused. Her is at bedside. Tells me that the patient appears to be returning to her baseline. Patient's hypoglycemia remains controlled. Patient does note some pain in her left leg, and has full range of motion without symptoms. Has been hoping that this is very normal for her no further complaints or concerns at this time. No concerns per nursing. Reason For Visit: HYPOGLYCEMIA,ACUTE METABOLIC ENCEPHALOPATHY Physical Exam Vital Signs: Temp Pulse Resp BP Pulse Ox 97.3 F 73 17 151/50 H 98 03/09/20 09:06 03/09/20 09:06 03/09/20 09:06 03/09/20 09:06 03/09/20 09:06 Intake & Output 03/08/20 03/09/20 03/10/20 06:59 06:59 06:59 Intake Total 300 1066 Output Total 325 315 Balance -25 751 Weight 86.7 kg 88.8 kg Additional comments: General appearance: PRESENT: no acute distress, obese, other - Follows commands, but is confused. Head exam: PRESENT: atraumatic, normocephalic Mouth exam: PRESENT: moist Neck exam: PRESENT: full ROM. ABSENT: JVD Respiratory exam: PRESENT: clear to auscultation minerva, unlabored. ABSENT: rhonchi, wheezes Cardiovascular exam: PRESENT: RRR. ABSENT: diastolic murmur, systolic murmur GI/Abdominal exam: PRESENT: ascites, distended, bowel sounds present, soft. ABSENT: guarding, mass, tenderness Extremities exam: PRESENT: full ROM Musculoskeletal exam: PRESENT: full ROM Neurological exam: PRESENT: awake, oriented to person, oriented to place Skin exam: PRESENT: dry, intact, warm. ABSENT: rash Results Laboratory Results: 03/09/20 04:39 03/09/20 04:39 03/09/20 03/09/20 04:39 04:39 WBC 5.2 RBC 2.96 L Hgb 9.1 L Hct 26.5 L MCV 90 MCH 30.9 MCHC 34.5 RDW 17.7 H Plt Count 152 Sodium 131.8 L Potassium 3.6 Chloride 101 Carbon Dioxide 26 Anion Gap 5 BUN 44 H Creatinine 2.02 H Est GFR ( Amer) 29 L Glucose 103 Calcium 8.8 03/05/20 18:56 Troponin I 0.023 Impressions: Head CT 03/05/20 18:57 IMPRESSION: Involutional changes with mild chronic microvascular ischemia. EVIDENCE OF ACUTE STROKE: NO. Abdomen/Pelvis CT 03/05/20 18:58 IMPRESSION: Cirrhosis with ascites. Splenomegaly, with innumerable low-density lesions throughout the spleen. Diagnostic possibilities include metastatic disease, lymphoma, sarcoidosis and an infectious process. Other findings as described. Assessment and Plan - Diagnosis (1) Acute kidney injury Is this a current diagnosis for this admission?: Yes Plan: Kidney function has been declining since initial presentation. BUN 44/ Cr 2.02 We will hold Vanco and get Vanco trough. Initiate fluids. Renal ultrasound ordered. Urinalysis, urine creatinine, urine sodium pending. Continue to monitor on BMP. (2) UTI (urinary tract infection) Is this a current diagnosis for this admission?: Yes Plan: UA consistent with UTI. Urine culture positive for MRSA. Tx: Vancomycin; hold therapy given acute kidney injury. Vanc level ordered pending. Consult infectious disease for appropriate medication management. WGTDa. (3) Hypoglycemia Is this a current diagnosis for this admission?: Yes Plan: Resolved Improved with D10. Hold and monitor. Multifactorial. This is likely due to combination of low appetite, overt reatment of underlying diabetes, liver cirrhosis and possibly lymphoma. Hemoglobin 4.6%. hemoglobin A1c goal should be 7 to 8%. (4) Acute metabolic encephalopathy Is this a current diagnosis for this admission?: Yes Plan: Multifactorial likely due to underlying dementia, hypoglycemia, cirrhosis. At baseline patient has mild dementia that has been progressive lately less responsive recently. CT head: without acute Ammonia WNL Hypoglycemia corrected. (5) Atrial fibrillation Qualifiers: Atrial fibrillation type: longstanding persistent Qualified Code(s): I48.11 - Longstanding persistent atrial fibrillation Is this a current diagnosis for this admission?: Yes Plan: History of chronic persistent atrial fibrillation. Rate controlled. Not on chronic anticoagulation. Continue Cardizem. Continue telemetry. Outpatient PCP and cardiology follow-up. (6) Malignancy Is this a current diagnosis for this admission?: Yes Plan: Oncology: Consulted. Note reviewed in detail. Recommends outpatient follow up CT/PET. History of unknown malignancy. Likely lymphoma as per but he is not too sure. Diagnosed in 2002, received chemotherapy in 2003, has been cancer free since then. However patient still has Port-A-Cath and left anterior chest even though she is not receiving any chemotherapy. As per patient is and will evaluated by oncologist and they have been told that he has been cancer free. CT abdomen positive for liver cirrhosis and splenomegaly with innumerable lesions. (7) Cirrhosis Qualifiers: Hepatic cirrhosis type: other cirrhosis Qualified Code(s): K74.69 - Other cirrhosis of liver Is this a current diagnosis for this admission?: Yes Plan: Denies any history of EtOH abuse. Presented with elevated T bili, alkaline phosphatase and thrombocytopenia. PT/INR WNL. Moderate ascites on physical examination and imaging. Hepatitis panel negative. Ammonia WNL. Monitor for bleeding. (8) HLD (hyperlipidemia) Is this a current diagnosis for this admission?: Yes Plan: Resume home meds. (9) HTN (hypertension) Is this a current diagnosis for this admission?: Yes Plan: Resume meds. Adjust meds as needed. (10) Urinary retention Is this a current diagnosis for this admission?: Yes Plan: Ferguson catheter removed. Failed bladder scan. Ferguson catheter place 03/08. - Time Time Spent with patient: 35 or more minutes Medications reviewed and adjusted accordingly: Yes Anticipated Discharge Disposition: Home, Self Care Anticipated Discharge Timeframe: within 48 hours
[2020-03-09 14:49] LABS: URINE CREATININE 55.9 mg/dL (15-278)
--- NOTE | 2020-03-09 15:26 | RADIOLOGY REPORT (SQ) ---
EXAM DESCRIPTION: U/S RETROPERITON (RENAL/AORTA) IMAGES COMPLETED DATE/TIME: 03/09/2020 3:11 pm REASON FOR STUDY: Elevated BUN/Cr. A01.03 TYPHOID PNEUMONIA COMPARISON: None. TECHNIQUE: Dynamic and static grayscale images acquired of the kidneys and bladder and recorded on P ACS. Additional selected color Doppler and spectral images recorded. LIMITATIONS: Body habitus. FINDINGS: RIGHT KIDNEY: Normal size. Increased cortical echogenicity. No solid or suspicious ma sses. No hydronephrosis. No calcifications. LEFT KIDNEY: Normal size. Increased cortical echogenicity. 1 cm cyst. No solid or suspicious mas ses. No hydronephrosis. No calcifications. BLADDER: Not visualized. OTHER: Incidental ascites. IMPRESSION: CHRONIC MEDICAL RENAL DISEASE. NO HYDRONEPHROSIS. TECHNICAL DOCUMENTATION: JOB ID: [id number] 2010 [employer]- All Rights Reserved Reading location - IP/workstation name: [email or web address]
[2020-03-09 16:25] VITALS: BP 160/52
--- NOTE | 2020-03-09 18:44 | PDOC DISCHARGE SUMMARY ---
Impression - Admit/DC Date/PCP Admission Date/Primary Care Provider: 03/06/20 00:08 MARCO DAY Discharge Date: 03/09/20 - Discharge Diagnosis (1) Acute kidney injury Is this a current diagnosis for this admission?: Yes (2) Acute metabolic encephalopathy Is this a current diagnosis for this admission?: Yes (3) Ascites Is this a current diagnosis for this admission?: Yes (4) Atrial fibrillation Is this a current diagnosis for this admission?: Yes (5) Cirrhosis Is this a current diagnosis for this admission?: Yes (6) Diabetes Is this a current diagnosis for this admission?: Yes (7) Hypoglycemia Is this a current diagnosis for this admission?: Yes (8) Malignancy Is this a current diagnosis for this admission?: Yes (9) UTI (urinary tract infection) Is this a current diagnosis for this admission?: Yes (10) Urinary retention Is this a current diagnosis for this admission?: Yes (11) HLD (hyperlipidemia) Is this a current diagnosis for this admission?: Yes (12) HTN (hypertension) Is this a current diagnosis for this admission?: Yes - Assessment Summary: SHARYN PETERS is an 80 year old female with past medical history of atrial fibrillation, DM2, hypertension, malignancy, who was brought to ED by EMS after found by to have recurrent low blood glucose readings on home monitoring. On admission, glucose in the 40s, CT head was negative for any acute abnormalities, abdominal CT showed cirrhosis with ascites, splenomegaly with innumerable low-density lesions. Hospitalist was consulted for admission. Malignancy: Oncology consulted. Diagnosed in 2002, received chemotherapy in 2003, has been cancer free since then. However patient still has Port-A-Cath and left anterior chest even though she is not receiving any chemotherapy. As per patient is and will evaluated by oncologist and they have been told that he has been cancer free. Unfortunately, CT abdomen positive for liver cirrhosis and splenomegaly with innumerable lesions, concerning for metastatic disease. MRSA UTI: she was treated with a 3 day course of Vancomycin. Hypoglycemia: likely due to combination of poor appetite, overtreatment of underlying diabetes, liver cirrhosis. Hemoglobin 4.6%. Her home anti-diabetic agents have been discontinued. Acute metabolic encephalopathy: Multifactorial likely due to underlying dementia, hypoglycemia, cirrhosis vs metastatic malignancy. At baseline patient has mild dementia that has been progressive lately and less responsive recently. CT head: without acute Ammonia WNL. Hypoglycemia corrected. Atrial fibrillation, longstanding persistent: Rate controlled. Not on chronic anticoagulation. Urinary retention: failed voiding trial x2. Ferguson catheter place 03/08. Dispo: she will be discharged home with home hospice services. Code Status: DNR/DNI - Additional Information Resuscitation Status: Comfort Measures Only Discharge Diet: Regular Discharge Activity: Activity As Tolerated Referrals: [facility] [Outside] MARCO DAY MD [Primary Care Provider] - Follow up as needed Home Medications: Alprazolam [Xanax 0.5 mg Tablet] 0.5 mg PO DAILYP PRN 03/06/20 Colchicine [Colcrys 0.6 mg Tablet] 1 tab PO DAILY 03/06/20 Metoprolol Succinate [Toprol Xl] 100 mg PO DAILY 03/06/20 History of Present Illiness History of Present Illness: SHARYN PETERS is a 80 year old female Physical Exam Vital Signs: Temp Pulse Resp BP Pulse Ox 98.7 F 83 16 160/52 H 97 03/09/20 16:00 03/09/20 16:00 03/09/20 16:00 03/09/20 16:00 03/09/20 16:00 Intake & Output 03/08/20 03/09/20 03/10/20 06:59 06:59 06:59 Intake Total 300 1066 60 Output Total 325 315 Balance -25 751 60 Weight 86.7 kg 88.8 kg Results Laboratory Results: WBC 5.2 10^3/uL (4.0-10.5) 03/09/20 04:39 RBC 2.96 10^6/uL (3.72-5.28) L 03/09/20 04:39 Hgb 9.1 g/dL (12.0-15.5) L 03/09/20 04:39 Hct 26.5 % (36.0-47.0) L 03/09/20 04:39 MCV 90 fl (80-97) 03/09/20 04:39 MCH 30.9 pg (27.0-33.4) 03/09/20 04:39 MCHC 34.5 g/dL (32.0-36.0) 03/09/20 04:39 RDW 17.7 % (11.5-14.0) H 03/09/20 04:39 Plt Count 152 10^3/uL (150-450) 03/09/20 04:39 Lymph % (Auto) 9.6 % (13-45) L 03/07/20 09:00 [place] % (Auto) 7.0 % (3-13) 03/07/20 09:00 Eos % (Auto) 0.8 % (0-6) 03/07/20 09:00 Baso % (Auto) 0.4 % (0-2) 03/07/20 09:00 Absolute Neuts (auto) 6.2 10^3/uL (1.7-8.2) 03/07/20 09:00 Absolute Lymphs (auto) 0.7 10^3/uL (0.5-4.7) 03/07/20 09:00 Absolute Monos (auto) 0.5 10^3/uL (0.1-1.4) 03/07/20 09:00 Absolute Eos (auto) 0.1 10^3/uL (0.0-0.6) 03/07/20 09:00 Absolute Basos (auto) 0.0 10^3/uL (0.0-0.2) 03/07/20 09:00 Total Counted 100 03/05/20 18:56 Seg Neutrophils % 82.2 % (42-78) H 03/07/20 09:00 Seg Neuts % (Manual) 85 % (42-78) H 03/05/20 18:56 Band Neutrophils % 3 % (3-5) 03/05/20 18:56 Lymphocytes % (Manual) 8 % (13-45) L 03/05/20 18:56 Monocytes % (Manual) 4 % (3-13) 03/05/20 18:56 Eosinophils % (Manual) 0 % (0-6) 03/05/20 18:56 Basophils % (Manual) 0 % (0-2) 03/05/20 18:56 Abs Neuts (Manual) 7.0 10^3/uL (1.7-8.2) 03/05/20 18:56 Abs Lymphs (Manual) 0.6 10^3/uL (0.5-4.7) 03/05/20 18:56 Abs Monocytes (Manual) 0.3 10^3/uL (0.1-1.4) 03/05/20 18:56 Absolute Eos (Manual) 0.0 10^3/uL (0.0-0.6) 03/05/20 18:56 Abs Basophils (Manual) 0.0 10^3/uL (0.0-0.2) 03/05/20 18:56 Platelet Estimate Cancelled 03/08/20 04:30 Platelet Comment ADEQUATE 03/05/20 18:56 Polychromasia 1+ 03/05/20 18:56 Anisocytosis 1+ 03/05/20 18:56 PT 15.0 SEC (11.4-15.4) 03/05/20 18:56 INR 1.16 03/05/20 18:56 Sodium 131.8 mmol/L (137-145) L 03/09/20 04:39 Potassium 3.6 mmol/L (3.6-5.0) 03/09/20 04:39 Chloride 101 mmol/L (98-107) 03/09/20 04:39 Carbon Dioxide 26 mmol/L (22-30) 03/09/20 04:39 Anion Gap 5 (5-19) 03/09/20 04:39 BUN 44 mg/dL (7-20) H 03/09/20 04:39 Creatinine 2.02 mg/dL (0.52-1.25) H 03/09/20 04:39 Est GFR ( Amer) 29 (>60) L 03/09/20 04:39 Est GFR (MDRD) Non-Af 24 (>60) L 03/09/20 04:39 Glucose 103 mg/dL (75-110) 03/09/20 04:39 POC Glucose 132 mg/dL (70-110) H 03/09/20 17:46 Hemoglobin A1c % 4.6 % (4.7-6.0) L 03/05/20 18:56 Calcium 8.8 mg/dL (8.4-10.2) 03/09/20 04:39 Magnesium 2.4 mg/dL (1.6-2.3) H 03/07/20 09:00 Total Bilirubin 1.6 mg/dL (0.2-1.3) H 03/07/20 09:00 Direct Bilirubin 0.9 mg/dL (0.0-0.4) H 03/07/20 09:00 Neonat Total Bilirubin Not Reportable 03/07/20 09:00 Neonat Direct Bilirubin Not Reportable 03/07/20 09:00 Neonat Indirect Bili Not Reportable 03/07/20 09:00 AST 49 U/L (14-36) H 03/07/20 09:00 ALT 28 U/L (<35) 03/07/20 09:00 Alkaline Phosphatase 288 U/L (38-126) H 03/07/20 09:00 Ammonia 23.3 umol/L (9-33) 03/06/20 00:05 Lactate Dehydrogenase 197 U/L (120-246) 03/06/20 00:05 Troponin I 0.023 ng/mL 03/05/20 18:56 Total Protein 5.7 g/dL (6.3-8.2) L 03/07/20 09:00 Albumin 2.4 g/dL (3.5-5.0) L 03/07/20 09:00 Urine Color Cancelled 03/09/20 13:45 Urine Appearance Cancelled 03/09/20 13:45 Urine pH Cancelled 03/09/20 13:45 Ur Specific [place] Cancelled 03/09/20 13:45 Urine Protein Cancelled 03/09/20 13:45 Urine Glucose (UA) Cancelled 03/09/20 13:45 Urine Ketones Cancelled 03/09/20 13:45 Urine Blood Cancelled 03/09/20 13:45 Urine Nitrite Cancelled 03/09/20 13:45 Urine Nitrite (Reflex) NEGATIVE (NEGATIVE) 03/05/20 21:52 Urine Bilirubin Cancelled 03/09/20 13:45 Urine Urobilinogen Cancelled 03/09/20 13:45 Ur Leukocyte Esterase Cancelled 03/09/20 13:45 Leukocyte Esterase Rfl SMALL (NEGATIVE) H 03/05/20 21:52 Urine WBC (Auto) Cancelled 03/09/20 13:45 Urine RBC (Auto) Cancelled 03/09/20 13:45 U Hyaline Cast (Auto) Cancelled 03/09/20 13:45 Urine Bacteria (Auto) Cancelled 03/09/20 13:45 Urine Red Cell Clumps Cancelled 03/09/20 13:45 Urine WBC (Reflex) 17 /HPF 03/05/20 21:52 Urine WBC Clumps Cancelled 03/09/20 13:45 Squamous Epi Cells Auto Cancelled 03/09/20 13:45 U Non-Squamous Epis Auto Cancelled 03/09/20 13:45 Calcium Carbonate Cryst Cancelled 03/09/20 13:45 Calcium Phosphate Cryst Cancelled 03/09/20 13:45 Calcium Oxalate Cr Auto Cancelled 03/09/20 13:45 Leucine Crystals Cancelled 03/09/20 13:45 Cystine Crystals Cancelled 03/09/20 13:45 Uric Acid Cryst (Auto) Cancelled 03/09/20 13:45 Triple Phos Cryst (Auto) Cancelled 03/09/20 13:45 Tyrosine Crystals Cancelled 03/09/20 13:45 Amorphous Sediment Auto Cancelled 03/09/20 13:45 Cellular Casts Cancelled 03/09/20 13:45 Epithelial Casts (Auto) Cancelled 03/09/20 13:45 Fatty Casts Cancelled 03/09/20 13:45 Granular Casts (Auto) Cancelled 03/09/20 13:45 Waxy Casts (Auto) Cancelled 03/09/20 13:45 Broad Casts Cancelled 03/09/20 13:45 RBC Casts (Auto) Cancelled 03/09/20 13:45 WBC Casts (Auto) Cancelled 03/09/20 13:45 Urine Mucus (Auto) Cancelled 03/09/20 13:45 U Trichomonas (Auto) Cancelled 03/09/20 13:45 Ur Yeast w Hyphae Cancelled 03/09/20 13:45 Urine Yeast (Budding) Cancelled 03/09/20 13:45 Urine Creatinine 55.9 mg/dL (15-278) 03/09/20 13:45 Urine Sodium 7 mmol/L (30-90) L 03/09/20 13:45 Urine Ascorbic Acid Cancelled 03/09/20 13:45 Time Trough Drawn 0831 03/09/20 08:31 Vancomycin Trough 11.4 ug/mL (5.0-20.0) 03/09/20 08:31 Hepatitis A IgM Ab Negative (Negative) 03/06/20 00:05 Hep Bs Antigen Negative (Negative) 03/06/20 00:05 Hep B Core IgM Ab Negative (Negative) 03/06/20 00:05 Hepatitis C Antibody <0.1 s/co ratio (0.0-0.9) 03/06/20 00:05 Slides for Path Review Cancelled 03/08/20 04:30 03/05/20 18:56 Troponin I 0.023 Impressions: Head CT 03/05/20 18:57 IMPRESSION: Involutional changes with mild chronic microvascular ischemia. EVIDENCE OF ACUTE STROKE: NO. Abdomen/Pelvis CT 03/05/20 18:58 IMPRESSION: Cirrhosis with ascites. Splenomegaly, with innumerable low-density lesions throughout the spleen. Diagnostic possibilities include metastatic disease, lymphoma, sarcoidosis and an infectious process. Other findings as described. Renal Ultrasound 03/09/20 12:10 IMPRESSION: CHRONIC MEDICAL RENAL DISEASE. NO HYDRONEPHROSIS. Stroke Is this a Stroke Patient?: No Acute Heart Failure Is this a Heart Failure Patient?: No
== END 2020-03-09 19:26 | disposition hospice, home (50) | DRG 637 ==
LOC: ER 18:43 → EH 03-06 00:08 → OBSVTOIN 03-06 00:08 → 4N 03-06 02:50
PROVIDERS: ADMIT Internal Medicine; ATTEND Hospitalist
DX: E11.649 Type 2 diabetes mellitus with hypoglycemia without coma (principal); G93.41 Metabolic encephalopathy; R18.8 Other ascites; N39.0 Urinary tract infection, site not specified; I48.11 Longstanding persistent atrial fibrillation; N17.9 Acute kidney failure, unspecified; K74.60 Unspecified cirrhosis of liver; R33.9 Retention of urine, unspecified; E78.5 Hyperlipidemia, unspecified; I10 Essential (primary) hypertension; B95.62 Methicillin resistant Staphylococcus aureus infection as the cause of diseases classified elsewhere; F03.90 Unspecified dementia, unspecified severity, without behavioral disturbance, psychotic disturbance, mood disturbance, and anxiety; D73.89 Other diseases of spleen; Z66 Do not resuscitate; Z92.21 Personal history of antineoplastic chemotherapy; Z79.899 Other long term (current) drug therapy; Z85.72 Personal history of non-Hodgkin lymphomas; Z88.8 Allergy status to other drugs, medicaments and biological substances
CPT/HCPCS: 36415; 70450; 74177; 76770; 80048; 80053; 80074; 80202; 81001; 82140; 82570; 82962; 83036; 83615; 83735; 84300; 84484; 85025; 85027; 85610; 87040; 87086; 87088; 87186; 93005; 93010; 96361; 96374; 96375; 96376; 99285; J0696; J1160; J1644; J1815; J3370; J3490; J7030; J7060

== ENCOUNTER 2020-03-19 15:06 | Emergency (ER) | payer MEDICARE, OTHER ==
--- NOTE | 2020-03-19 16:09 | RADIOLOGY REPORT (SQ) ---
EXAM DESCRIPTION: CHEST SINGLE VIEW IMAGES COMPLETED DATE/TIME: 03/19/2020 3:58 pm REASON FOR STUDY: Breahing difficulty COMPARISON: 01/20/2018 EXAM PARAMETERS: NUMBER OF VIEWS: One view. TECHNIQUE: Single frontal radiographic view of the chest acquired. RADIATION DOSE: NA LIMITATIONS: None. FINDINGS: LUNGS AND PLEURA: Low lung volumes with bibasilar opacities. Likely small bilateral effus ions. No pneumothorax. MEDIASTINUM AND HILAR STRUCTURES: No masses. Contour normal. HEART AND VASCULAR STRUCTURES: Enlarged cardiac silhouette, stable. BONES: No acute findings. HARDWARE: Left subclavian approach chest port with catheter tip directed cephalad over the right brac hiocephalic vein. This is stable. OTHER: No other significant finding. IMPRESSION: Low lung volumes with patchy bibasilar opacities, left greater than right, possibly atel ectasis or infection. Stable enlarged cardiac silhouette. TECHNICAL DOCUMENTATION: JOB ID: [id number] 2010 [employer]- All Rights Reserved Reading location - IP/workstation name: [email or web address]
[2020-03-19 16:43] LABS: APPEARANCE,URINE SLIGHTLY-CLOUDY; BILIRUBIN,URINE NEGATIVE (NEGATIVE); COLOR,URINE AMBER; GLUCOSE, URINE NEGATIVE (NEGATIVE); KETONES,URINE NEGATIVE (NEGATIVE); LEUKOCYTE ESTERASE,URINE MODERATE (NEGATIVE); NITRITE,URINE NEGATIVE (NEGATIVE); PROTEIN,URINE 30 mg/dL (NEGATIVE); URINE SPECIFIC GRAVITY 1.017
--- NOTE | 2020-03-19 17:34 | ER Document Report ---
ED General - General Chief Complaint: Shortness Of Breath Stated Complaint: LETHARGIC Time Seen by Provider: 03/19/20 17:33 Primary Care Provider: MARCO DAY MD [Primary Care Provider] - Follow up as needed TRAVEL OUTSIDE OF THE [place] IN LAST 30 DAYS: No - HPI Notes: 80-year-old female presents from home via EMS after being lethargic and short of breath. Per EMS report they found the patient hunched over in the recliner, they repositioned her which caused her to take several deep breath and her mental status improved. The family is known to be Covid positive, she is po sitive Covid with the rapid test they have. Patient was recently admitted and found to have metastatic cancer in the abdomen, she was sent home on hospice care, but reportedly family rescinded hospice care a few days ago. Patient is pleasantly demented, she is able to state that she had a previous history of lymphoma and she thought she was diagnosed with cysts, she states that she has had a slight cough and did not know that her family had Covid. - Related Data Allergies/Adverse Reactions: Gvhozid-Njs-Bhk Reductase Inhibitor Adverse Reaction (Verified 03/19/20 15:36) Home Medications: Pt. unable to recall, family not present due to being COVID + Past Medical History - General Information source: Patient, Emergency Med Personnel - Social History Smoking Status: Unknown if Ever Smoked Chew tobacco use (# tins/day): No Frequency of alcohol use: None Drug Abuse: None Family History: Hypertension Patient has homicidal ideation: No - Past Medical History Cardiac Medical History: Reports: Hx Atrial Fibrillation, Hx Hypertension Denies: Hx Heart Attack Pulmonary Medical History: Denies: Hx Asthma Neurological Medical History: Denies: Hx Cerebrovascular Accident, Hx Seizures Renal/ Medical History: Denies: Hx Peritoneal Dialysis Malignancy Medical History: Reports: Hx Lymphoma GI Medical History: Denies: Hx Hepatitis, Hx Hiatal Hernia, Hx Ulcer Musculoskeletal Medical History: Reports Hx Arthritis Psychiatric Medical History: Denies: Hx Depression Infectious Medical History: Denies: Hx Hepatitis Past Surgical History: Reports: Hx Cholecystectomy. Denies: Hx Mastectomy, Hx Open Heart Surgery, Hx Pacemaker Review of Systems - Review of Systems Notes: ROS limited secondary to dementia Cardiovascular: denies: Chest pain Respiratory: Cough. denies: Short of breath Gastrointestinal: denies: Abdominal pain Musculoskeletal: denies: Muscle pain Physical Exam - Vital signs Vitals: Temp 97.6 F 03/19/20 15:07 - General General appearance: Appears well, Alert In distress: None - HEENT Head: Normocephalic, Atraumatic Extraocular movements intact: Yes Pupils: PERRL - Respiratory Respiratory status: No: Labored, Tachypnea Breath sounds: Normal - Cardiovascular Rhythm: Regular Heart sounds: Normal auscultation Normal capillary refill: Yes - Abdominal Inspection: Obese Distension: Distended Tenderness: Nontender - Extremities General lower extremity: No: Edema - Neurological Neuro grossly intact: Yes - Psychological Associated symptoms: Normal affect - Skin Skin Temperature: Warm Course - Re-evaluation Re-evalutation: 80-year-old female presents from home after apparently being short of breath, per EMS report shortness of breath resolved once they repositioned her in the recliner. Patient is pleasantly demented, she currently denies complaints. She is hemodynamically stable and 98% on room air. She has no labored breathing or increased respirations, her lungs are fairly clear, may be some coarse rhonchi at the bases. Given that her whole family is Covid positive, I suspect this to be the case with her, will undergo rapid testing. Basic laboratory evaluation initiated. Patient with recent diagnosed metastatic liver/intra-abdominal disease, known ascites, her abdomen is without focal area of tenderness, apparently was on hospice but this was recently rescinded. 03/19/20 20:03 No leukocytosis. Hemoglobin at baseline. Slight thrombocytopenia, has had this previously. Electrolytes okay. Creatinine improved from previous. Alk phos with some increase from baseline, suspect this to be related to her known metast atic abdominal disease. Urine not overtly suggestive of UTI. 03/19/20 20:22 Updated patient's on overall reassuring work-up today. Currently no admission criteria. She has had no episodes of hypoxia on room air. We discussed supportive symptomatic care at home as he is also now Covid positive today. He questioned about her abdominal swelling, I instructed him to please follow-up with the primary care doctor and have a paracentesis done as an outpatient if possible. Return precautions given, stable time of discharge. - Vital Signs Vital signs: Temp Pulse Resp BP Pulse Ox 97.6 F 22 H 166/69 H 99 03/19/20 21:31 03/19/20 21:31 03/19/20 21:31 03/19/20 21:31 - Laboratory Results Result Diagrams: 03/19/20 18:07 03/19/20 18:07 Laboratory Results Interpreted: 03/19/20 03/19/20 03/19/20 16:31 18:07 18:07 RBC 3.09 L Hgb 9.5 L Hct 28.5 L RDW 19.1 H Plt Count 140 L Lymph % (Auto) 12.3 L Seg Neutrophils % 82.6 H Sodium 135.6 L Anion Gap 3 L BUN 59 H Creatinine 1.56 H Est GFR ( Amer) 39 L Est GFR (MDRD) Non-Af 32 L Glucose 118 H Total Bilirubin 1.5 H Direct Bilirubin 0.8 H AST 54 H Alkaline Phosphatase 484 H Total Protein 5.6 L Albumin 2.3 L Urine Protein 30 H Urine Blood SMALL H Urine Urobilinogen 2.0 H Ur Leukocyte Esterase MODERATE H SARS-CoV-2 Rap RNA(RT-PCR) 03/19/20 18:42 RBC Hgb Hct RDW Plt Count Lymph % (Auto) Seg Neutrophils % Sodium Anion Gap BUN Creatinine Est GFR ( Amer) Est GFR (MDRD) Non-Af Glucose Total Bilirubin Direct Bilirubin AST Alkaline Phosphatase Total Protein Albumin Urine Protein Urine Blood Urine Urobilinogen Ur Leukocyte Esterase SARS-CoV-2 Rap RNA(RT-PCR) POSITIVE H Critical Laboratory Results Reviewed: No Critical Results - Radiology Results Critical Radiology Results Reviewed: No Critical Results - EKG Interpretation by Me Additional EKG results interpreted by me: EKG is interpreted by me. Sinus rhythm, rate 64. Narrow QRS, QTC within normal limits. No ST segment elevation. Discharge - Discharge Clinical Impression: COVID-19 virus infection, Chronic anemia, Chronic indwelling Ferguson catheter Disposition: HOME, SELF-CARE Additional Instructions: Please be sure she takes a daily multivitamin. May also consider supplementation with vitamin C, vitamin D and zinc. These products are available [id number]-[id number] under brand name such as Zicam or Emergen-C You may continue to use Mucinex, Robitussin or other etnf-bar-tidhnzt cough/cold medicines for further symptomatic control. It is also advised to take a full dose aspirin. I have prescribed Zofran which he may use for nausea/vomiting. Return to the emergency department for any concerning worsening symptoms. Prescriptions: Ondansetron [Zofran Odt 4 mg Tablet] 1 tab PO Q4H PRN #15 tab.rapdis PRN Reason: For Nausea/Vomiting Referrals: MARCO DAY MD [Primary Care Provider] - Follow up as needed
[2020-03-19 18:45] LABS: ABSOLUTE EOSINOPHILS # (AUTO) 0.1 10^3/uL (0.0-0.6); ABSOLUTE LYMPHOCYTES (AUTO) 0.9 10^3/uL (0.5-4.7); ABSOLUTE MONOCYTES (AUTO) 0.3 10^3/uL (0.1-1.4); ABSOLUTE NEUT (AUTO) 6.2 10^3/uL (1.7-8.2); BASOPHILS % (AUTO) 0.6 % (0-2); HEMATOCRIT 28.5 % (36.0-47.0); HEMOGLOBIN 9.5 g/dL (12.0-15.5); LYMPHOCYTES % (AUTO) 12.3 % (13-45); MEAN CORPUSCULAR HEMOGLOBIN 30.8 pg (27.0-33.4); MEAN CORPUSCULAR HGB CONC 33.4 g/dL (32.0-36.0); MEAN CORPUSCULAR VOLUME 92 fl (80-97); MONOCYTES % (AUTO) 3.5 % (3-13); RED BLOOD COUNT 3.09 10^6/uL (3.72-5.28); RED CELL DISTRIBUTION WIDTH 19.1 % (11.5-14.0); SEGMENTED NEUTROPHILS % (AUTO) 82.6 % (42-78); TOTAL CELLS COUNTED % (AUTO) 100 %; WHITE BLOOD COUNT 7.5 10^3/uL (4.0-10.5)
[2020-03-19 19:04] LABS: ALBUMIN 2.3 g/dL (3.5-5.0); ALKALINE PHOSPHATASE 484 U/L (38-126); ASPARTATE AMINO TRANSFERASE 54 U/L (14-36); BILIRUBIN,DIRECT 0.8 mg/dL (0.0-0.4); BILIRUBIN,TOTAL 1.5 mg/dL (0.2-1.3); BLOOD UREA NITROGEN 59 mg/dL (7-20); CALCIUM 9.2 mg/dL (8.4-10.2); CARBON DIOXIDE 27 mmol/L (22-30); CHLORIDE 106 mmol/L (98-107); GLUCOSE 118 mg/dL (75-110); POTASSIUM 4.1 mmol/L (3.6-5.0); TOTAL PROTEIN 5.6 g/dL (6.3-8.2)
[2020-03-19 19:10] LABS: ANION GAP 3 (5-19)
[2020-03-19 19:23] LABS: PLATELET COUNT 140 10^3/uL (150-450)
[2020-03-19 21:45] VITALS: BP 166/69
--- NOTE | 2020-03-19 22:02 | EKG REPORT ---
SEVERITY:- ABNORMAL ECG - ACCELERATED JUNCTIONAL ESCAPE RHYTHM vs SINUS RHTM : Confirmed by: Joe Jacob 19-Mar-2020 22:01:35
== END 2020-03-19 21:45 | disposition home or self-care (01) ==
LOC: ER 15:06
DX: U07.1 COVID-19 (principal); D64.9 Anemia, unspecified; F03.90 Unspecified dementia, unspecified severity, without behavioral disturbance, psychotic disturbance, mood disturbance, and anxiety; I10 Essential (primary) hypertension; C79.89 Secondary malignant neoplasm of other specified sites; D69.6 Thrombocytopenia, unspecified; R18.8 Other ascites; Z85.72 Personal history of non-Hodgkin lymphomas; Z96.0 Presence of urogenital implants
CPT/HCPCS: 93005; 99285; 36415; 87086; 85025; 0241U ×4; 87088; 80053; 81001; 71045; 93010; C9803; 87186